=== PATIENT | male | born 1945 | race Caucasian/White ===

== ENCOUNTER → 2021-08-09 10:31 | Outpatient (BNVA) | payer OTHER, SELFPAY | PROVIDERS: PCP Family Medicine; Visit Provider Urology | DX: R35.1 Nocturia (principal); N40.1 Benign prostatic hyperplasia with lower urinary tract symptoms; G60.3 Idiopathic progressive neuropathy; E03.9 Hypothyroidism, unspecified; R73.03 Prediabetes | CPT/HCPCS: 51798; 99212 ==

== ENCOUNTER → 2022-03-26 09:59 | Outpatient (BNVA) | payer OTHER, SELFPAY | PROVIDERS: PCP Family Medicine; Visit Provider Urology | DX: N40.1 Benign prostatic hyperplasia with lower urinary tract symptoms (principal); R35.1 Nocturia | CPT/HCPCS: 52000; 99212 ==

== ENCOUNTER → 2022-12-11 13:16 | Outpatient (BNVA) | payer OTHER, SELFPAY | PROVIDERS: PCP Family Medicine; Visit Provider Urology | DX: N40.1 Benign prostatic hyperplasia with lower urinary tract symptoms (principal); R35.1 Nocturia | CPT/HCPCS: 51798; 99212 ==

== ENCOUNTER 2023-09-04 10:22 | Outpatient (AMB) | payer OTHER, SELFPAY ==
--- NOTE | 2023-09-04 10:35 | A.OFFVIS_ITS ---
Intake Intake Visit Reasons: 6m follow up/PVR Intake Note: Patient is Present for Follow Up PVR Urology Medication: Finasteride, Antibiotic Allergies: None Blood Thinners: None Pharmacy: [facility] PVR: 0 ML Allergies No Known Allergies [No Known Allergies*] Allergy (Verified 09/04/23 10:35) HPI HPI Comments History of Present Illness Details Ravi is a very pleasant male. He is a patient of Dr. Silva. He is seen for the following urologic conditions. - lower urinary tract symptoms Prior PVR had been high but reduced with combination medications Current PVR 0 Current medications include finasteride and prazosin. Prazosin also used to control PTSD Accompanied by Has had hesitancy with accidents Discussed GreenLight laser prostate This will be organized Lower Urinary Tract Symptoms:? Current visit is for?further symptom evaluation of, lower urinary tract symptoms, mixed obstructive and irritative symptoms.? Current treatment includes?medication, finasteride, alpha hayley prazosin 5mg.? Prostate Symptom Score?Moderate (9-19), Bother 3.? Symptoms include?incomplete emptying, weak stream, nocturia (>2), and are progressing.? Prior Prostate Score?unknown.? Cystoscopy 04/14 trilobar hypertrophy PFSH Medical History Idiopathic progressive neuropathy Hypothyroidism Lower back pain Restless legs syndrome Prediabetes Benign prostatic hyperplasia with lower urinary tract symptoms Nocturia Review of Systems Const Denies chills and Denies fever(s) Card Reports no additional complaints and Denies syncope Resp Denies cough GI Denies abdominal pain and Denies heartburn Reports as per HPI and Denies change in libido Neuro Denies syncope Psych Denies change in libido Endo Denies change in libido Physical Exam Const General: cooperative, healthy appearing, comfortable and no acute distress Orientation/consciousness: patient oriented x3 HEENT Face and sinus: Yes normal facial exam Mouth: moist mucous membranes Neck Neck: Yes normal visual inspection, Yes full ROM and Yes trachea midline Chest Chest palpation & inspection: normal inspection of the chest Resp Effort & Inspection: normal respiratory effort, able to speak in complete sentences and no respiratory distress GI Inspection: Yes normal to inspection Back/Spine/Pelvis Cervical Spine: normal cervical lordosis Thoracic/Lumbar Spine: thoracic and lumbar spine normal to inspection Skin General skin exam: no rashes or lesions noted Neuro General: patient oriented x3, gait normal, tone normal and moves all extremities Extrem General: Yes normal to inspection and Yes capillary refill normal Office Procedures Post Void Residual Post Residual Void Post Void Residual (PVR): 0 [id number] Void Residual by ultrasound Results AMB Urinalysis, Automated UA Leukoctes 0 Mona/uL Last Edit by Shelly Alonzo [facility] on 09/04/23 11:01 UA Nitrite Negative Last Edit by Shelly Alonzo A on 09/04/23 11:01 UA Urobilinogen 1 mg/dL Last Edit by Shelly Alonzo A on 09/04/23 11:01 UA Protein 0 mg/dL Last Edit by Shelly Alonzo A on 09/04/23 11:01 UA pH 6.0 Last Edit by Shelly Alonzo [facility] on 09/04/23 11:01 UA Blood 0 Harshad/uL Last Edit by Shelly Alonzo [facility] on 09/04/23 11:01 UA Specific [place] 1.020 Last Edit by Shelly Alonzo, A on 09/04/23 11: 01 UA Ketone Negative Last Edit by Shelly Alonzo [facility] on 09/04/23 11:01 UA Bilirubin 0 mg/dL Last Edit by Shelly Alonzo A on 09/04/23 11:01 UA Glucose 0 mg/dL Last Edit by Shelly Alonzo, [facility] on 09/04/23 11:01 Assessment & Plan Assessment & Plan (1) Nocturia: Code(s): R35.1 - Nocturia (2) Benign prostatic hyperplasia with lower urinary tract symptoms: Comment: 6 month follow-up PVR Code(s): N40.1 - Benign prostatic hyperplasia with lower urinary tract symptoms Plan We discussed the nature of the decision and reasonable options for performing a prostate intervention. Interventions include TURP, GreenLight laser enucleation of the prostate, GreenLight laser ablation of the prostate, transurethral incision of the prostate, and I-Tend prostate procedure. Options such as medical therapy were discussed. The relative uncertainties and benefits related to each alternate procedure were adequately discussed. General surgical risks including, but not limited to, pain, bleeding, infection, myocardial infarction, pulmonary embolus, deep vein thrombosis and cerebrovascular accident which may result in further hospitalization were discussed. Full disclosure of the procedure as well as all major risks, benefits and complications were discussed including but not limited to damage to the urethra or bladder neck, recurrent BPH, retrograde ejaculation, bladder infection, urge, de thuy frequency, incomplete emptying, dysuria, remote chance of erectile dysfunction, epididymitis, and meatal stenosis. The success rate of the procedure was discussed. Success of the procedure in the short-term does not necessarily guarantee that long-term success will be maintained. Suitable follow up will need to be maintained. The patient showed understanding of discussion. An opportunity was provided for questions to be answered and wishes to proceed with the following procedure. - green light laser prostate Orders: Orders AMB Urinalysis Automated Today Z13.9 - Encounter for screening, unspecified AMB Post Void Residual by ultrasound Today N40.1 - Benign prostatic hyperplasia with lower urinary tract symptoms Patient Instructions: Imaging studies, laboratory and physical exam results were discussed and reviewed in detail. No major barriers to patient understanding were identified. An opportunity to ask questions regarding the treatment plan was provided. All questions were answered. The patient expressed understanding and agreement with the above treatment plan. The patient is aware they should contact our office by phone for worsening of their current condition or the appearance of new urologic symptoms. Compliance is encouraged with any medications and followup testing that is ordered. It is a privilege to participate in the urologic care of your patient. If you have any questions or concerns regarding treatment for the above conditions, or other urologic issues, please do not hesitate to contact me. The office telephone contact is [phone]. This note is constructed using voice recognition software. While every effort has been made to ensure accuracy mop maker errors may have been included. Yours sincerely, Dr Colt Camarillo MD, [facility] - Urology Providers of Expert, Compassionate Care for the Genitourinary System Coding Level of Care Code Est Pt Level 4 (76756) Diagnoses Nocturia R35.1 Benign prostatic hyperplasia with lower urinary tract symptoms N40.1 CPT Codes Post Residual Void - PVR CPT Code: 13597-Bpcg Void Residual by ultrasound ([id number])
== END 2023-09-04 11:30 | disposition home or self-care (01) ==
PROVIDERS: PCP Family Medicine; Visit Provider Urology
DX: N40.1 Benign prostatic hyperplasia with lower urinary tract symptoms (principal); R35.1 Nocturia; Z13.9 Encounter for screening, unspecified
CPT/HCPCS: 99214

== ENCOUNTER → 2023-09-04 10:22 | Outpatient (BNVA) | payer OTHER, SELFPAY | PROVIDERS: Visit Provider Urology | DX: N40.1 Benign prostatic hyperplasia with lower urinary tract symptoms (principal); R35.1 Nocturia | CPT/HCPCS: 51798; 81003; 99212 ==

== ENCOUNTER 2023-10-20 08:25 | Day surgery (SDC) | payer OTHER, SELFPAY ==
[2023-10-14 11:02] VITALS: BMI 32.4
--- NOTE | 2023-10-15 12:07 | HO.ANESPROP2 ---
Documented by User: Stacey Yoder NP 10/15/23 12:08 HPI - Anesthesia Eval Consult details Narrative: 77yo M for Laser Ablation Prostate w/Green Light PMFSH Active Problems Active Problems: All Active Problems (Updated 10/14/23 @ 11:01 by Angela Elizondo RN) Nocturia (Acute) Benign prostatic hyperplasia with lower urinary tract symptoms (Acute) Past Medical History Medical History (Updated 10/20/23 @ 09:13 by Jennifer Lutz RN) GERD (gastroesophageal reflux disease) PTSD (post-traumatic stress disorder) Anxiety Depression Sleep apnea Elevated cholesterol Idiopathic progressive neuropathy Hypothyroidism Lower back pain Restless legs syndrome Prediabetes Benign prostatic hyperplasia with lower urinary tract symptoms Nocturia Surgical History Surgical History (Updated 10/20/23 @ 08:48 by Jennifer Lutz RN) History of esophagogastroduodenoscopy (EGD) H/O colonoscopy Social History Patient Tobacco Use Status: Former Tobacco user Quit Date: 2 yrs ago Use of substances other than those prescribed or required for medical reasons: No Are you DNR?: No Advance Directives: No Advance Directives Information Provided: Yes Meds Allergies Allergy/AdvReac Type Severity Reaction Status Date / Time No Known Allergies Allergy Verified 10/20/23 09:12 [No Known Allergies*] Home Medications Medication Instructions Recorded Confirmed Last Taken Type finasteride 5 mg tablet 5 mg PO BEDTIME 08/09/21 10/20/23 Unknown History gabapentin 100 mg capsule 100 mg PO BEDTIME 08/09/21 10/20/23 Unknown History prazosin 5 mg capsule 5 mg PO BEDTIME 08/09/21 10/20/23 Unknown History lorazepam 0.5 mg tablet 0.5 mg PO DAILY PRN Anxiety 03/26/22 10/20/23 Unknown History atorvastatin 80 mg tablet 80 mg PO BEDTIME 12/11/22 10/20/23 Unknown History zolpidem 5 mg tablet 5 mg PO BEDTIME PRN Insomnia 12/11/22 10/20/23 Unknown History Hyaluronic Acid (sodium) 200 g PO DAILY 10/20/23 10/20/23 Unknown History duloxetine 30 mg capsule,delayed 40 mg PO DAILY 10/20/23 10/20/23 Unknown History release (Cymbalta) levothyroxine 125 mcg tablet 125 mcg PO DAILY 10/20/23 10/20/23 Unknown History omeprazole 20 mg capsule,delayed 20 mg PO DAILY 10/20/23 10/20/23 Unknown History release paroxetine HCl 10 mg tablet (Paxil) 10 mg PO DAILY 10/20/23 10/20/23 Unknown History Exam Height,Weight and Vital Signs: Height 5 ft 7 in Weight 93.894 kg Assessment and Plan Assessment Anesthesia Assessment: Chart Reviewed Documented by User: Eloy Pineda MD 10/20/23 09:16 [facility] Past Medical History Medical History (Updated 10/20/23 @ 09:13 by Jennifer Lutz RN) GERD (gastroesophageal reflux disease) PTSD (post-traumatic stress disorder) Anxiety Depression Sleep apnea Elevated cholesterol Idiopathic progressive neuropathy Hypothyroidism Lower back pain Restless legs syndrome Prediabetes Benign prostatic hyperplasia with lower urinary tract symptoms Nocturia Family History Family history of problems with anesthesia: No Surgical History Surgical History (Updated 10/20/23 @ 08:48 by Jennifer Lutz RN) History of esophagogastroduodenoscopy (EGD) H/O colonoscopy History of Problems with Anesthesia: No Social History Patient Tobacco Use Status: Former Tobacco user Quit Date: 2 yrs ago Use of substances other than those prescribed or required for medical reasons: No Are you DNR?: No Advance Directives: No Advance Directives Information Provided: Yes Meds Allergies Allergy/AdvReac Type Severity Reaction Status Date / Time No Known Allergies Allergy Verified 10/20/23 09:12 [No Known Allergies*] Home Medications Medication Instructions Recorded Confirmed Last Taken Type finasteride 5 mg tablet 5 mg PO BEDTIME 08/09/21 10/20/23 Unknown History gabapentin 100 mg capsule 100 mg PO BEDTIME 08/09/21 10/20/23 Unknown History prazosin 5 mg capsule 5 mg PO BEDTIME 08/09/21 10/20/23 Unknown History lorazepam 0.5 mg tablet 0.5 mg PO DAILY PRN Anxiety 03/26/22 10/20/23 Unknown History atorvastatin 80 mg tablet 80 mg PO BEDTIME 12/11/22 10/20/23 Unknown History zolpidem 5 mg tablet 5 mg PO BEDTIME PRN Insomnia 12/11/22 10/20/23 Unknown History Hyaluronic Acid (sodium) 200 g PO DAILY 10/20/23 10/20/23 Unknown History duloxetine 30 mg capsule,delayed 40 mg PO DAILY 10/20/23 10/20/23 Unknown History release (Cymbalta) levothyroxine 125 mcg tablet 125 mcg PO DAILY 10/20/23 10/20/23 Unknown History omeprazole 20 mg capsule,delayed 20 mg PO DAILY 10/20/23 10/20/23 Unknown History release paroxetine HCl 10 mg tablet (Paxil) 10 mg PO DAILY 10/20/23 10/20/23 Unknown History Exam Airway Mallampati Class: I TM Dist: >3cm Denture: Upper and Lower Heart: ok Lungs: ok Assessment and Plan Assessment Anesthesia Assessment: Anesthesia Plan Discussed Final Anesthetic Review Family History of Problems with Anesthesia: No History of Problems with Anesthesia: No NPO: Yes ASA Class: III Final Preanesthetic Review: No Changes in Pt Med Stat, Meds/Allgs Chart Reviewed, Consent Obtained/Reviewed and Anes Risks/Benef Reviewed Patient Risk: Intermediate Procedure Risk: Low Anesthetic Plan Anesthetic Plan: GA and Agree w/ Assess. and Plan Disposition: Standard PACU
[2023-10-20 08:47] VITALS: BMI 31.9
[2023-10-20 08:50] VITALS: BMI 31.9
--- NOTE | 2023-10-20 08:52 | MHC.SHP ---
Pre-Procedural Eval Section A Date of Service: 10/20/23 The patient is an INPATIENT: No Changes since office visit: No Cold of Flu in the past 2 weeks, No New Medical Problems, No Changes in Medication and No Patient answered all questions The History & Physical has been completed within 30 days and I have reviewed it.: No Section B Chief Complaint: Benign prostatic hyperplasia with lower urinary tr Details of Present Illness: progressive Relevant Social History: None Present Medications: see Short Stay Collaborative assessment Medical History: No relevant PMH History of Previous Operations: No relevant previous surgery Allergies: Allergies Allergy/AdvReac Type Severity Reaction Status Date / Time No Known Allergies Allergy Verified 09/04/23 10:35 [No Known Allergies*] Review of Systems Sugical H&P ROS: Negative: Constitution, Cardiovascular, Respiratory, Neurological, Psychiatric, Hem-Onc, Allergic/Immunologic, Gastrointestinal, Genitourinary, Musculoskeletal, Integumentary, Endocrine and Eyes/Ears/Nose/Throat Exam Surgical H&P Exam: Normal: HEENT, Normal: Heart, Normal: Lungs, Normal: Extremities, Normal: Abdomen, Normal: Skin and Normal: Neurological Plan Diagnosis/Plan: Unchanged (Greenlight laser prostatetcomy) I have reviewed the history and physical and performed a pertinent physical examination on my patient. No changes have occurred unless specified. Time Spent With Patient Time: Total time managing care of this patient today ____ minutes.
[2023-10-20] MEDS: Lactated Ringers 1,000 ML 100 ML IVCONT (09:10)
[2023-10-20 09:11] VITALS: BP 117/85; PULSE 86; RESP 16; TEMP 36.3; O2SAT 96
--- NOTE | 2023-10-20 09:47 | PC.NURSE ---
Fine crackles noted in RLL, anesthesia made aware at time of report 0910.
--- NOTE | 2023-10-20 10:19 | W.PM.OPN ---
Operative Note Operative Note Date of Service: 10/20/23 Narrative: PreOperative Diagnosis: Bladder outlet obstruction Post Operative Diagnosis: Bladder outlet obstruction Procedure: GreenLight Laser Enucleation of the prostate Surgeon: Dr Colt Camarillo Anesthesia: General Indications for procedure: progressive BPH symptoms History of bladder outlet obstruction. Treated with alpha-hayley and other medications. Still with symptoms. On cystoscopy in office has trilobar prostate. Recommendation for prostate procedure with laser enucleation of prostate. Risks and benefits have been discussed. Focus was placed on development of retrograde ejaculation which is a normal part of this procedure. Procedure: After informed consent was verified the patient was brought to the operating room and placed in a supine position. Anesthesia was administered per protocol. Patient was placed in modified dorsal lithotomy position and prepped and draped in a sterile fashion. Safety pause time-out was confirmed. Antibiotics have been given. A Twenty-four Salvadorean laser cystoscope was inserted per urethra. No abnormalities were found of the anterior and bulbar urethra. The bladder was examined and both ureteric orifices were seen in their normal positions away from the area of interest. Bladder had Grade 2 trabeculations Using a GreenLight laser with settings of 80 w incisions were made at the 5 and 7 o'clock position. The incisions were taken down from the bladder neck down to the level of the veru. These were gradually deepened in order to define the lateral aspects of the median lobe area. Once clearly defined they will also extended in the lateral directions in order to create a deep groove. The median lobe was then ablated and enucleated tissue released into the bladder with the laser power increased to 120 W. Once the median lobe area had been cleared attention was directed to the lateral lobes. Starting with the patient's left lateral lobe. First the 05:00 o'clock groove was further developed. This was moved in the lateral direction to undermine the tissue on the lateral side running from the bladder neck to the prostate apex. Focus was then placed on the laser at the 1 o'clock position to developing a secondary groove down to the level of bladder fibers. The creation of a second deep groove defined a segment of intervening tissue similar to a slice of orange. At the apex of the prostate the 2 grooves were linked the us releasing the intervening tissue. This tissue was then removed with a combination of enucleation and ablation working from the apex toward the bladder neck. A similar procedure was repeated on the patient's right-hand side. The only differences being the position of the lateral groove at he 7 'oclock positioin and the secondary groove at the 11 o'clock position, Otherwise the procedure was developed in a mirror fashion. After the majority of tissue had been debulked remnant tissue was ablated with the side fire laser and the curve of the prostate followed up each side wall clearly defining the anterior remnant strip that remained between the 11 and 1 o'clock positions. When this was had been completed debris and pieces of prostate were removed from the bladder with irrigation. Both ureteric orifices were reviewed again in shown to be patent in away from any areas of energy damage. The apical area was reviewed in any stray ooze was controlled. A 22 Salvadorean 30 cc balloon Chirinos catheter was placed over a stylet into the bladder. Clear efflux was obtained upopn irrigation with a Tarik piston syringe. 30 cc was placed in the balloon and gentle traction was placed. A snap was used to hold tension on the catheter to control bleeding during patient moved and transported. A drainage bag was placed. Once transportation is complete to the PACU the snap will be removed. The patient tolerated the procedure well, he was extubated in the operating and transferred in a stable condition to the recovery area. Total Power 100 kW Lasing time 15.03 Pathology: Prostate tissue Drains: Chirinos catheter
[2023-10-20 10:23] VITALS: BP 108/71; PULSE 74; RESP 14; TEMP 36.1; O2SAT 91
[2023-10-20 10:28] VITALS: BP 116/74; PULSE 69; RESP 14; O2SAT 96
[2023-10-20 10:33] VITALS: BP 115/68; PULSE 68; RESP 14; O2SAT 95
[2023-10-20 10:38] VITALS: BP 101/72; PULSE 66; RESP 16; O2SAT 96
[2023-10-20 10:53] VITALS: BP 119/65; PULSE 64; RESP 18; TEMP 36.1; O2SAT 95
--- NOTE | 2023-10-20 11:10 | PC.NURSE ---
thorough education provided on aguilar care, leg bag transitioning, and care with at bedside
== END 2023-10-20 11:40 | disposition home or self-care (01) ==
PROVIDERS: PCP Family Medicine; Visit Provider Urology
PROC: (CPT 52648; principal; 2023-10-20 11:20)
DX: N40.1 Benign prostatic hyperplasia with lower urinary tract symptoms (principal); N13.8 Other obstructive and reflux uropathy; N32.89 Other specified disorders of bladder; R33.9 Retention of urine, unspecified; R39.12 Poor urinary stream; R35.1 Nocturia; R73.03 Prediabetes; E03.9 Hypothyroidism, unspecified; Z79.899 Other long term (current) drug therapy
CPT/HCPCS: 52649; 88305; J1956; J2704; J3010

== ENCOUNTER → 2023-10-20 08:25 | Outpatient (BNV) | payer OTHER, SELFPAY | PROVIDERS: PCP Family Medicine; Visit Provider Urology | DX: N40.1 Benign prostatic hyperplasia with lower urinary tract symptoms (principal) | CPT/HCPCS: 52649 ==

== ENCOUNTER → 2023-10-23 09:51 | Outpatient (BNVA) | payer OTHER, SELFPAY | PROVIDERS: PCP Family Medicine; Visit Provider Urology | DX: N40.1 Benign prostatic hyperplasia with lower urinary tract symptoms (principal) | CPT/HCPCS: 51700; 51798 ==

== ENCOUNTER 2023-12-09 11:16 | Outpatient (AMB) | payer OTHER, SELFPAY ==
--- NOTE | 2023-12-09 11:19 | A.OFFVIS_ITS ---
Intake Intake Visit Reasons: Post-OP PVR(Greenlight 10/20) Intake Note: Patient is Present for Follow Up PVR Urology Medication: Finasteride Antibiotic Allergies: None Blood Thinners: None PVR: 21 Allergies No Known Allergies [No Known Allergies*] Allergy (Verified 12/09/23 11:22) HPI HPI Comments History of Present Illness Details Ravi is a very pleasant male. He is a patient of Dr. Silva. He is seen for the following urologic conditions. - lower urinary tract symptoms Good response to Procedure PVR low May come off finasteride Nocturia reduced from 3-4 times a night to once or twice Very happy with effective stream Prazosin also used to control PTSD Accompanied by Lower Urinary Tract Symptoms:? Current visit is for?further symptom evaluation of, lower urinary tract symptoms, mixed obstructive and irritative symptoms.? Current treatment includes?medication, finasteride, alpha hayley prazosin 5mg.? Prostate Symptom Score?Moderate (9-19), Bother 3.? Symptoms include?incomplete emptying, weak stream, nocturia (>2), and are progressing.? Prior Prostate Score?unknown.? Cystoscopy 04/14 trilobar hypertrophy PFSH Medical History GERD (gastroesophageal reflux disease) PTSD (post-traumatic stress disorder) Anxiety Depression Sleep apnea Elevated cholesterol Idiopathic progressive neuropathy Hypothyroidism Lower back pain Restless legs syndrome Prediabetes Benign prostatic hyperplasia with lower urinary tract symptoms Nocturia Surgical History History of esophagogastroduodenoscopy (EGD) H/O colonoscopy Social History Patient Tobacco Use Status: Former Tobacco user Quit Date: 2 yrs ago Review of Systems Const Denies chills and Denies fever(s) Card Reports no additional complaints and Denies syncope Resp Denies cough GI Denies abdominal pain and Denies heartburn Reports as per HPI and Denies change in libido Neuro Denies syncope Psych Denies change in libido Endo Denies change in libido Physical Exam Const General: cooperative, healthy appearing, comfortable and no acute distress Orientation/consciousness: patient oriented x3 HEENT Face and sinus: Yes normal facial exam Mouth: moist mucous membranes Neck Neck: Yes normal visual inspection, Yes full ROM and Yes trachea midline Chest Chest palpation & inspection: normal inspection of the chest Resp Effort & Inspection: normal respiratory effort, able to speak in complete sentences and no respiratory distress GI Inspection: Yes normal to inspection Back/Spine/Pelvis Cervical Spine: normal cervical lordosis Thoracic/Lumbar Spine: thoracic and lumbar spine normal to inspection Skin General skin exam: no rashes or lesions noted Neuro General: patient oriented x3, gait normal, tone normal and moves all extremities Extrem General: Yes normal to inspection and Yes capillary refill normal Office Procedures Post Void Residual Post Residual Void Post Void Residual (PVR): 21 [id number] Void Residual by ultrasound Assessment & Plan Assessment & Plan (1) Benign prostatic hyperplasia with lower urinary tract symptoms: Comment: 6 month follow-up PVR Code(s): N40.1 - Benign prostatic hyperplasia with lower urinary tract symptoms Plan Six-month follow-up PSA Orders: Orders Prostate Specific Antigen 6 Months N40.1 - Benign prostatic hyperplasia with lower urinary tract symptoms AMB Post Void Residual by ultrasound Today N40.1 - Benign prostatic hyperplasia with lower urinary tract symptoms Patient Instructions: Imaging studies, laboratory and physical exam results were discussed and reviewed in detail. No major barriers to patient understanding were identified. An opportunity to ask questions regarding the treatment plan was provided. All questions were answered. The patient expressed understanding and agreement with the above treatment plan. The patient is aware they should contact our office by phone for worsening of their current condition or the appearance of new urologic symptoms. Compliance is encouraged with any medications and followup testing that is ordered. It is a privilege to participate in the urologic care of your patient. If you have any questions or concerns regarding treatment for the above conditions, or other urologic issues, please do not hesitate to contact me. The office telephone contact is [phone]. This note is constructed using voice recognition software. While every effort has been made to ensure accuracy artist representative errors may have been included. Yours sincerely, Dr Colt Camarillo MD, [facility] - Urology Providers of Expert, Compassionate Care for the Genitourinary System Coding Level of Care Code Est Pt Level 3 (98031) Diagnoses Benign prostatic hyperplasia with lower urinary tract symptoms N40.1 CPT Codes Post Residual Void - PVR CPT Code: 63972-Allg Void Residual by ultrasound ([id number])
== END 2023-12-09 11:48 | disposition home or self-care (01) ==
PROVIDERS: PCP Family Medicine; Referring Provider Family Medicine; Visit Provider Urology
DX: N40.1 Benign prostatic hyperplasia with lower urinary tract symptoms (principal)
CPT/HCPCS: 99024

== ENCOUNTER → 2023-12-09 11:16 | Outpatient (BNVA) | payer OTHER, SELFPAY | PROVIDERS: PCP Family Medicine; Visit Provider Urology | DX: N40.1 Benign prostatic hyperplasia with lower urinary tract symptoms (principal); R39.14 Feeling of incomplete bladder emptying; R39.12 Poor urinary stream; R35.1 Nocturia | CPT/HCPCS: 51798; 99212 ==

== ENCOUNTER 2024-07-08 12:36 | Outpatient (REF) | payer OTHER, SELFPAY ==
[2024-07-08 14:02] LABS: Prostate Specific Antigen 0.98 ng/mL (<0.05-4.0)
== END 2024-07-08 12:37 | disposition home or self-care (01) ==
LOC: HO.10HDL 12:36
PROVIDERS: Visit Provider Urology
DX: Z12.5 Encounter for screening for malignant neoplasm of prostate (principal); N40.1 Benign prostatic hyperplasia with lower urinary tract symptoms
CPT/HCPCS: 36415; 84153

== ENCOUNTER 2024-07-20 14:47 | Outpatient (AMB) | payer OTHER, SELFPAY ==
--- NOTE | 2024-07-20 15:18 | MHC.OFFVIS ---
Intake Visit Reasons: 6M Follow Up-PSA(set) Intake Note: Patient is present for PSA Follow up Patient wants to know if he needs to restart Finasteride Allergies No Known Allergies [No Known Allergies*] Allergy (Verified 12/09/23 11:22) HPI Comments Details: Ravi is a very pleasant male. He is a patient of Dr. Silva. He is seen for the following urologic conditions. - lower urinary tract symptoms Six-month follow-up GreenLight laser procedure PSA - 07/17 1.0 Nocturia reduced from 3-4 times a night to once or twice Very happy with effective stream Prazosin also used to control PTSD Accompanied by Lower Urinary Tract Symptoms:? Current visit is for?further symptom evaluation of, lower urinary tract symptoms, mixed obstructive and irritative symptoms.? Current treatment includes?medication, finasteride, alpha hayley prazosin 5mg.? Prostate Symptom Score?Moderate (9-19), Bother 3.? Symptoms include?incomplete emptying, weak stream, nocturia (>2), and are progressing.? Prior Prostate Score?unknown.? Cystoscopy 04/14 trilobar hypertrophy - 01/17 GreenLight laser prostatectomy PFS Medical History GERD (gastroesophageal reflux disease) PTSD (post-traumatic stress disorder) Anxiety Depression Sleep apnea Elevated cholesterol Idiopathic progressive neuropathy Hypothyroidism Lower back pain Restless legs syndrome Prediabetes Benign prostatic hyperplasia with lower urinary tract symptoms Nocturia Surgical History History of esophagogastroduodenoscopy (EGD) H/O colonoscopy Social History Patient Tobacco Use Status: Former Tobacco user Review of Systems Const Denies chills and Denies fever(s) Card Reports no additional complaints and Denies syncope Resp Denies cough GI Denies abdominal pain and Denies heartburn Reports as per HPI and Denies change in libido Neuro Denies syncope Psych Denies change in libido Endo Denies change in libido Physical Exam Const General: cooperative, healthy appearing, comfortable and no acute distress Orientation/consciousness: patient oriented x3 HEENT Face and sinus: Yes normal facial exam Mouth: moist mucous membranes Neck Neck: Yes normal visual inspection, Yes full ROM and Yes trachea midline Chest Chest palpation & inspection: normal inspection of the chest Resp Effort & Inspection: normal respiratory effort, able to speak in complete sentences and no respiratory distress GI Inspection: Yes normal to inspection Back/Spine/Pelvis Cervical Spine: normal cervical lordosis Thoracic/Lumbar Spine: thoracic and lumbar spine normal to inspection Skin General skin exam: no rashes or lesions noted Neuro General: patient oriented x3, gait normal, tone normal and moves all extremities Extrem General: Yes normal to inspection and Yes capillary refill normal Assessment & Plan Assessment & Plan (1) Nocturia: Code(s): R35.1 - Nocturia Category: Medical (2) Benign prostatic hyperplasia with lower urinary tract symptoms: Comment: 6 month follow-up PVR Code(s): N40.1 - Benign prostatic hyperplasia with lower urinary tract symptoms Category: Medical Plan Twelve month follow-up PVR Patient Instructions: Imaging studies, laboratory and physical exam results were discussed and reviewed in detail. No major barriers to patient understanding were identified. An opportunity to ask questions regarding the treatment plan was provided. All questions were answered. The patient expressed understanding and agreement with the above treatment plan. The patient is aware they should contact our office by phone for worsening of their current condition or the appearance of new urologic symptoms. Compliance is encouraged with any medications and followup testing that is ordered. It is a privilege to participate in the urologic care of your patient. If you have any questions or concerns regarding treatment for the above conditions, or other urologic issues, please do not hesitate to contact me. The office telephone contact is [phone]. This note is constructed using voice recognition software. While every effort has been made to ensure accuracy buffing and sueding machine operator errors may have been included. Yours sincerely, Dr Colt Camarillo MD, [facility] - Urology Providers of Expert, Compassionate Care for the Genitourinary System Coding Level of Care Code Est Pt Level 3 (67841) Diagnoses Nocturia R35.1 Benign prostatic hyperplasia with lower urinary tract symptoms N40.1
== END 2024-07-20 16:01 | disposition home or self-care (01) ==
PROVIDERS: PCP Family Medicine; Visit Provider Urology
DX: N40.1 Benign prostatic hyperplasia with lower urinary tract symptoms (principal); R35.1 Nocturia
CPT/HCPCS: 99213

== ENCOUNTER → 2024-07-20 14:47 | Outpatient (BNVA) | payer OTHER, SELFPAY | PROVIDERS: PCP Family Medicine; Visit Provider Urology | DX: N40.1 Benign prostatic hyperplasia with lower urinary tract symptoms (principal); R35.1 Nocturia | CPT/HCPCS: 99212 ==

== ENCOUNTER 2025-07-20 11:28 | Outpatient (AMB) | payer OTHER, SELFPAY ==
--- OUTSIDE RECORDS SUMMARY | 2024-09-14 07:30 | XMS_ITS | Encounter Summary ---
Author Name [facility] [place] Organization [facility] [place] Address [address] [place] [address] Care Team Providers Care Puzzle Assembler Name Role Phone FRANCO CAMPBELL Primary Care Provider Unavail able Insurance Providers: All historical and current Section Date Range: From patient's date of to the date document was created. This section includes the names of all active insurance providers for the patient. Insurance Provider Type of Coverage Plan Name Start of Policy Coverage End of Policy Coverage Group Number Member ID Insurance Provider's Telephone Number Policy Rivera's Name Patient's Relationship to Policy Rivera MEDICARE (WNR) MEDICARE (M) PART A Nov 24, 2010 PART A [id number] [phone] ROHINI CARBAJAL CHARD PATIENT MEDICARE (WNR) MEDICARE (M) PART A Nov 24, 2010 PART A [id number] SOLOMON,ROHINI CHARD PATIENT MEDICARE (WNR) MEDICARE (M) PART A Nov 24, 2008 PART A [id number] SOLOMON,ROHINI CHARD PATIENT MEDICARE (WNR) MEDICARE (M) PART A Nov 24, 2008 PART A [id number] [phone] SOLOMON,ROHINI TODD PATIENT Selected Encounter This section includes the information on record at [place] for the Encounter. Date/Time Encounter Type Encounter Description Reason Provider Source Sep 14, 2024 11:30 AM OFFICE O/P EST LOW 20 MIN [facility] ICD-10-CM F43.12 Post-traumatic stress disorder, chronic KYLE BREWER [facility] Encounter Template Text not used by [place] Assessments - Encounter Diagnoses This section includes the primary and secondary diagnoses documented for the Encounter. Date/Time Primary/Secondary Diagnosis Diagnosis Name Provider Source Sep 14, 2024 12:20 PM PRIMARY Post-traumatic stress disorder, chronic BREWERKYLE Bassam [facility] Plan of Treatment: Future Appointments (+ 6 months) and Future Tests (+/- 45 days) The Plan of Treatment section includes future care activities for the patient [facility] This section includes future appointments and future orders which are active, pending or scheduled. Future Appointments This section includes appointments that were scheduled to occur 6 months from the date of the Encounter, up to a maximum of 20 appointments. The data comes from all [place] treatment facilities. Appointment Date/Time Appointment Type Appointme nt Facility Name Sep 23, 2024 11:00 AM AMBULATORY - [facility]IATRY [facility] [place] [facility] Oct 26, 2024 10:00 AM AMBULATORY - [facility]IAT[facility] [place] [facility] Oct 28, 2024 09:00 AM AMBULATORY - MEDICINE [facility] [place] [facility] Nov 05, 2024 11:30 AM AMBULATORY - MEDICINE [facility] Nov 11, 2024 02:00 PM AMBULATORY - NONE [facility] [place] [facility] Nov 15, 2024 08:00 AM AMBULATORY - REHAB MEDICIN [facility] [place] [facility] Dec 02, 2024 09:00 AM AMBULATORY - PS[facility]CHIATRY [facility] [place] [facility] Dec 02, 2024 10:30 AM [facility]ATORY - MEDICINE [facility] Dec 15, 2024 10:30 AM AMBULATORY - MEDICINE [facility] [place] [facility] Dec 24, 2024 03:00 PM AMBULATORY - MEDICINE [facility] Jan 04, 2025 11:00 AM AMBULATORY - PS[facility]CHIATRY [facility] [place] [facility] Jan 11, 2025 11:30 AM AMBULATORY - PSYCHIATRY [facility] Feb 15, 2025 10:00 AM AM[facility] [place] [facility] Mar 15, 2025 11:30 AM AMBULATORY - MEDICINE [facility] Social History: Smoking Status (Most current) and Tobacco Use (All prior to encounter date) This section includes the most current, and the historical, smoking and tobacco- related health factors from the [place] facility where the Encounter took place. Current Smoking Status This section includes the most current smoking, or tobacco-related health factor, from the [place] facility where the Encounter took place. Date/Time Current Smoking Status Comment Facil ity Jul 29, 2024 11:00 AM VA-TOBACCO FORMER USER [facility] Tobacco Use History This section includes a history of the smoking, or tobacco-related health factors, that were collected on or before the date of the Encounter. The data comes from the [place] facility where the Encounter took place. Date/Time Smoking Status/Tobacco Use Comment F [email or web address] Jul 29, 2024 11:00 AM VA-TOBACCO QUIT 5 TO < 15 YRS [facility] Jun 10, 2023 03:30 PM VA-TOBACCO FORMER USER [facility] Jun 10, 2023 03:30 PM VA-TOBACCO QUIT 1 TO < 5 YRS [facility] Jul 09, 2022 03:30 PM VA-TOBACCO FORMER USER [facility] Jul 09, 2022 03:30 PM VA-TOBACCO QUIT 15 YRS OR MORE [facility] Jun 08, 2021 09:00 AM VA-TOBACCO FORMER USER [facility] Jun 08, 2021 09:00 AM VA-TOBACCO QUIT < 1 YEAR [facility] Jun 20, 2020 09:38 AM VA-TOBACCO FORMER USER [facility] Jun 20, 2020 09:38 AM VA-TOBACCO QUIT 5 TO < 15 YRS [facility] Feb 10, 2019 06:20 PM VA-TOBACCO DOESNT USE WI 30 MIN WAKEUP [facility] Feb 10, 2019 06:20 PM VA-TOBACCO USE 30 YEARS OR MORE [facility] Feb 10, 2019 06:20 PM VA-TOBACCO USE ADVICE [facility] Feb 10, 2019 06:20 PM VA-TOBACCO USE VOLUNTEER SPECIALIST NO [facility] Feb 10, 2019 06:20 PM VA-TOBACCO USE MED NO [facility] Feb 10, 2019 06:20 PM VA-TOBACCO USER SOME DAYS [facility] Mar 05, 2018 08:47 AM QUIT TOBACCO USE 1 -7 YEARS AGO [facility] Oct 07, 2017 02:29 PM QUIT TOBACCO USE IN PAST YEAR [facility] March 27, 2017 02:09 PM QUIT TOBACCO USE IN PAST Y EAR cigars [facility] Dec 04, 2016 02:35 PM [facility] Mar 19, 2016 10:33 AM V1-PT NOT INTEREST ED IN QUIT TOBACCO USE [facility] Feb 07, 2016 09:06 AM CURRENT SMOKER States he smokes cigars every couple of days [facility] Dec 06, 2014 09:39 AM CURRENT [facility] Oct 29, 2013 08:14 AM V1-PT DECLINES REF TO TOBACCO CESS [facility] Oct 29, 2013 08:14 AM V1-PT READY TO ROSANGELA T TOBACCO USE [facility] May 20, 2013 09:56 AM QUIT TOBACCO USE IN PAST YEAR [facility] Nov 12, 2012 08:56 AM V1-PT DECLINES REF TO TOBACCO CESS [facility] Nov 12, 2012 08:56 AM V1-PT DECLINES TOB ACCO CESSATION [facility] Nov 12, 2012 08:56 AM V1-PT THINKING ABO UT QUIT TOBACCO USE [facility] Aug 12, 2012 08:38 AM CURRENT SMOKER 4-5cigars/d [facility] Aug 05, 2011 11:00 AM CURRENT SMOKER Pt. smikes 1 cigar a day! [facility] Aug 05, 2011 11:00 AM V1-PT DECLINES REF TO TOBACCO CESS [facility] Aug 05, 2011 11:00 AM V1-PT DECLINES TOB ACCO CESSATION [facility] Aug 05, 2011 11:00 AM V1-PT THINKING ABO UT QUIT TOBACCO USE [facility] Sep 27, 2010 08:35 AM V1-PT DECLINES REF TO TOBACCO CESS [facility] Sep 27, 2010 08:35 AM V1-PT READY TO ROSANGELA T TOBACCO USE [facility] April 03, 2010 02:39 PM QUIT TOBACCO USE IN PAST YEAR [facility] Encounter Notes: All associated encounter notes This section contains the clinical notes associated to the Encounter. Date/Time Encounter Note(s) Provider Source Sep 14, 2024 12:06 PM CLINICAL NURSE SPE CIALIST NOTE: LOCAL TITLE: CLINICAL NURSE SPECIALIST/MENTAL HEALTH STANDARD TITLE: CLINICAL NURSE SPECIALIST NOTE DATE OF NOTE: SEP 14, 2024@12:06 ENTRY DATE: SEP 14, 2024@12:06:59 AUTHOR: KYLE BREWER EXP COSIGNER: URGENCY: STATUS: COMPLETED Pertinent symptoms: PTSD, chronic symptoms. - In person 30 min- - medication management. Followed by Ana Lilia Oswald [facility] for counseling Taking Duloxetine for mood and neuropathic pain last visit, taking 40 mg. He states that he thinks that Paxil is more effective for mood and is taking 10 mg daily . We discussed Serotonin syndrome. No side effects reviewed and he states that he wishes to continue with current medications. Active problems - Computerized Problem List is the source for the followin. Neuropathy 2. Osteoarthritis * 3. Impaired Fasting Glucose 4. Esophageal Reflux 5. Problems resulting from Gambling and Betting 6. Skin Lesion 7. Depressive Disorder NOS 8. Colorectal Cancer Screening Results Documented and Reviewed (PV) 9. Vitamin B 12 Deficiency 10. Low Back Pain, Lumbago 11. Hyperlipidemia 12. Hypothyroidism 13. Posttraumatic Stress Disorder * The following VA and Non-VA medications were reconciled with the patient: Relevant mental status exam or other objective findings: Well groomed .friendly affect is full Thought process- goal directed - Speech : normal rate and tone No a/v hallucination/ delusions. 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 Remains active as much as he can. He is driving. He states he still has periods of depression- but improved [facility]. 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 Renew Ambien 5 mg at he for sleep prn. Lorazepam .5 mg bid x 30 days for anxiety takes usually one tab daily Labs/Radiology/Tests/Consultation _ none ordered __ obtained: labs reviewed The following VA and Non-VA medications were reconciled with the patient: Active Outpatient Medications (including Supplies): ATORVASTATIN CALCIUM 80MG TAB TAKE ONE TABLET BY MOUTH AT ACTIVE BEDTIME FOR CHOLESTEROL DEPEND UNDERWEAR,MAXIMUM,MEN LARGE USE 1 BRIEF DIRECTED ACTIVE FIVE TIMES A DAY DULOXETINE HCL 20MG EC CAP TAKE TWO CAPSULES BY MOUTH BRANDON PENDING FINASTERIDE 5MG TAB TAKE ONE TABLET BY MOUTH ONCE DAILY ACTIVE FOR PROSTATE GABAPENTIN 100MG CAP TAKE ONE CAPSULE BY MOUTH THREE TIMES ACTIVE A DAY IPRATROPIUM BR 0.03% NASAL SPRAY INSTILL 2 SPRAYS INTO ACTIVE EACH NOSTRIL DIRECTED BY PROVIDER FOR NASAL IRRITATION/CONGESTION TWO OR THREE TIMES A DAY LEVOTHYROXINE NA (SYNTHROID) 125MCG TAB TAKE ONE TABLET BY ACTIVE MOUTH EVERY MORNING 30 MINUTES BEFORE BREAKFAST FOR THYROID - TAKE ON AN EMPTY STOMACH WITH A FULL GLASS OF WATER LIDOCAINE 5% PATCH APPLY 1 PATCH TOPICALLY EVERY 24 HOURS ACTIVE FOR LOW BACK PAIN (LEAVE PATCH ON FOR 12 HOURS, THEN REMOVE PATCH) LORAZEPAM 0.5MG TAB TAKE ONE TABLET BY MOUTH TWICE DAILY ACTIVE FOR ANXIETY PAROXETINE HCL 20MG TAB TAKE ONE-HALF TABLET BY MOUTH AT PENDING BEDTIME FOR MOOD PRAZOSIN HCL 5MG CAP TAKE ONE CAPSULE BY MOUTH AT BEDTIME ACTIVE PRAZOSIN HCL 5MG CAP TAKE ONE CAPSULE BY MOUTH AT BEDTIME PENDING ZOLPIDEM TARTRATE 5MG TAB TAKE ONE TABLET BY MOUTH AT PENDING BEDTIME NEEDED Rt in 8 weeks I educated the patient about the side effect profile of the benzodiazepine, including potential for sedation, for impaired coordination, for falling, and for impaired cognition. The patient was advised not to drive after taking the benzodiazepine. The patient was advised about the potential for excessive sedation when the benzodiazepine is taken with other medications. The patient was advised not to take the benzodiazepine with alcohol. The patient was advised about the potential for addiction to the benzodiazepine. The concepts in the benzodiazepine treatment contract were reviewed with the patient and the patient agreed. The patient demonstrated good understanding of the benzodiazepine side effect profile. The benefits of benzodiazepine treatment outweigh risks for this patient. The rationale for the psychiatric medications and the alternatives to treatment were discussed with the patient. The side effect profile of the psychiatric medications was reviewed with the patient. Patient demonstrated reasonable understanding of the medication side effects and the above issues. The benefits of psychiatric medications outweigh risks for this patient. I asked the patient call [phone] ([facility]) or to come to open access if needed Medication Reconciliation: Outpatient: Has the patient been taking medications as documented in the EMLR? YES: The patient has been taking medications as documented in the EMLR. Essential Medication List for Review used to complete this medication reconciliation. INCLUDED IN THIS LIST: Alphabetical list of active outpatient prescriptions dispensed from this [place] (local) and dispensed from another [place] or DoD facility (remote) as well as inpatient orders (local, pending and active), local clinic medications, locally documented non-VA medications, and local prescriptions that have or been discontinued in the past 90 days. - All changes in medications, including all non-VA/Herbal/OTC medications were entered into CPRS. - If there were any medications the patient should no longer take, they were discontinued. - The patient/caregiver was instructed to update this list, discard old lists, and take this list to the next appointment, whether with a VA or non-VA provider. /oscar/ Kyle Brewer APRN, STAFF CLINICAL NURSE SPECIALIST Signed: 09/14/2024 12:20 KYLE BREWER [facility]
--- OUTSIDE RECORDS SUMMARY | 2024-10-26 06:00 | XMS_ITS | Encounter Summary ---
Author Name [facility] Organization [facility] Address [address] [place] [address] Care Team Providers Care Resin Remover Name Role Phone FRANCO CAMPBELL Primary Care [...] PART A Nov 24, 2010 PART A [id number] ROHINI CARBAJAL CHARD PATIENT MEDICARE (WNR) MEDICARE (M) PART A Nov 24, 2010 PART A [id number] ROHINI CARBAJAL CHARD PATIENT MEDICARE (WNR) MEDICARE (M) PART A Nov 24, 2008 PART A [id number] ROHINI CARBAJAL CHARD PATIENT MEDICARE (WNR) MEDICARE (M) PART A Nov 24, 2008 PART A [id number] SOLOMON,ROHINI TODD PATIENT Selected Encounter This section includes the information on record at ME for the Encounter. Date/Time Encounter Type Encounter Description Reason Provider Source Oct 26, 2024 10:00 AM PSYTX W PT 60 MINUTES [facility] - IND ICD-10-CM F43.12 Post-traumatic stress disorder, chronic ABRANHUNTER Cara Encounter Template Text not used by ME Assessments - Encounter Diagnoses This section includes the primary and secondary diagnoses documented for the Encounter. Date/Time Primary/Secondary Diagnosis Diagnosis Name Provider Source Oct 26, 2024 10:56 AM PRIMARY Post-traumatic stress disorder, HUNTER Garcia [place] Plan of Treatment: Future Appointments (+ 6 months) and Future Tests (+/- 45 days) The Plan of Treatment section includes future care activities for the patient [facility] This section includes future appointments and future orders which are active, pending or scheduled. Future Appointments This section includes appointments that were scheduled to occur 6 months from the date of the Encounter, up to a maximum of 20 appointments. The data comes from all [place] treatment facilities. Appointment Date/Time Appointment Type Appointme nt Facility Name Oct 28, 2024 09:00 AM AMBULATORY - MEDICINE [facility] [place] [facility] Nov 05, 2024 11:30 AM [facility]ORY - MEDICINE [facility] Nov 11, 2024 02:00 PM AMBULATORY - NONE [facility] [place] [facility] Nov 15, 2024 08:00 AM AMBULATORY - REHAB MEDICIN E [facility] [place] [facility] Dec 02, 2024 09:00 AM AMBULATORY - PSYCHIATRY [facility] [place] [facility] Dec 02, 2024 10:30 AM [facility]ORY [facility]IC[facility] Dec 15, 2024 10:30 AM AMBULATORY - MEDICINE [facility] [place] [facility] Dec 24, 2024 03:00 PM [facility]ATORY - MEDICINE [facility] Jan 04, 2025 11:00 AM AMBULATORY - PSYCHIATRY [facility] [place] [facility] Jan 11, 2025 11:30 AM AMBULATORY - PSYCHIATRY [facility] Feb 15, 2025 10:00 AM AMBULATORY - PSYCHIATRY [facility] [place] [facility] Mar 15, 2025 11:30 AM [facility] MEDICINE [facility] March 24, 2025 10:00 AM [facility] April 22, 2025 02:30 PM AM[facility]ULAT[facility] - MEDICINE [facility] Active, Pending, and Scheduled Orders This section includes a listing of several types of active, pending, and scheduled orders, including clinic medications orders, diagnostic test orders, procedure orders and consult orders; where the start date of the order is 45 days before the date of the Encounter or 45 days after the date of theEncounter. The data comes from all [place] treatment facilities. Test Date/Time Test Type Test Details Facility Name Nov 16, 2024 12:47 PM Consult Order DERMATOLOG Y/[facility] (OUTPT) Cons Fire Production Operator's Choice [facility] Lab Results: +/- 30 days of the encounter This section includes the Chemistry and Hematology Lab Results on record with ME for the patient. Radiology Reports and Pathology Reports are provided separately, in subsequent sections. Lab Results This section contains the Chemistry/Hematology Results that were resulted 30 days before or 30 daysafter the date of the Encounter. Date/Time Source Result Type Result - Unit Interpretation Reference Range Specimen Type Comment Nov 15, 2024 08:13 AM [place] TSH SERUM Specimen Type: SERUM No comment entered. Ordering Provider: RAOUL MCKEON Report Released Date/Time: Nov 05, 2024 12:05 PM Reporting Lab: [address] [address] Performing Lab: [address] [address] TSH 0.87 u[IU]/mL 0.35-5.00 Nov 15, 2024 08:13 AM [place] VITAMIN D (25-OH) SERUM Specimen Type : SERUM No comment entered. Ordering Provider: RAOUL MCKEON Report Released Date/Time: Nov 05, 2024 12:05 PM Reporting Lab: [address] [address] Performing Lab: [address] [address] VITAMIN D (25-OH) 38 ng/mL 20-50 Nov 15, 2024 08:13 AM [place] CBC BLOOD Sp ecimen Type: BLOOD No comment entered. Ordering Provider: RAOUL MCKEON Report Released Date/Time: Nov 05, 2024 12:05 PM Reporting Lab: [facility] [address] [address] [address] Performing Lab: [address] [address] WBC 6.55 10*3/uL 4.50-11.00 RBC 5.19 10*6/uL 4.23-5.66 HGB 14.8 g/dL 12.8-17 HCT 45.2 39.2-50.4 MCV 87.1 fL 82-99 MCHC 32.7 g/dL 30.8-35.1 PLT 283 10*3/uL 140-360 RDW-CV 12.4 12.0-16.0 MCH 28.5 pg 26.2-32.6 Nov 15, 2024 08:13 AM [place] LIPID PANEL FASTING SERUM Specimen Ty pe: SERUM No comment entered. Ordering Provider: RAOUL MCKEON Report Released Date/Time: Nov 05, 2024 12:05 PM Reporting Lab: [address] [address] Performing Lab: [address] [address] CHOLESTEROL 148 mg/dL TRIGLYCERIDE 111 mg/dL 0-150 LDL calculated 83 mg/dL 0-129 CHOL/HDL 3.4 HDL CHOLESTEROL 43 mg/dL 40-60 Nov 15, 2024 08:13 AM [place] BASIC METABOLIC PANEL (fasting) SERUM Specimen Type: SERUM No comment entered. Ordering Provider: RAOUL MCKEON Report Released Date/Time: Nov 05, 2024 12:05 PM Reporting Lab: [address] [address] Performing Lab: [address] [address] UREA NITROGEN 17 mg/dL 7-25 GLUCOSE 111 mg/dL H 65-100 SODIUM 139 mmol/L 135-145 POTASSIUM 4.3 mmol/L 3.5-5.0 CHLORIDE 105 mmol/L 100-110 CO2 27 meq/L 20-30 CREATININE, Serum 1.42 mg/dL H 0.50-1.40 eGFR(CKD-EPI 2020) 51 mL/min L >60 Nov 15, 2024 08:13 AM [place] LIVER FUNCTION SERUM Specimen Type: SERUM No comment entered. Ordering Provider: RAOUL MCKEON Report Released Date/Time: Nov 05, 2024 12:05 PM Reporting Lab: [address] [address] Performing Lab: [address] [address] PROTEIN,TOTAL 6.5 g/dL 6.0-8.3 ALBUMIN 3.6 g/dL 3.5-5.0 ALKALINE PHOSPHATASE 84 U/L 40-150 AST 20 U/L 5-34 ALT 21 U/L BILIRUBIN, TOTAL 0.8 mg/dL 0.2-1.2 Nov 15, 2024 08:13 AM [place] URINALYSIS URINE S pecimen Type: URINE Comment: If Glucose = >500 and Ketones are positive, please alert the Physician. Ordering Provider: RAOUL MCKEON Report Released Date/Time: Nov 05, 2024 12:05 PM Reporting Lab: [address] [address] Performing Lab: [address] [address] UA COLOR Yellow Yellow UA APPEARANCE Clear Clear UA GLUCOSE Normal mg/dL Negative UA KETONES NEGATIVE mg/dL Negative UA BLOOD NEGATIVE mg/dL Negative UA PROTEIN NEGATIVE mg/dL Negative UA NITRITE NEGATIVE mg/dL Negative UA BILIRUBIN NEGATIVE mg/dL Negative UA SPECIFIC GRAVITY 1.019 1.016-1.022 UA pH 6.0 5.0-9.0 UA UROBILINOGEN 2 mg/dL <2.0 UA LEUKOCYTE NEGATIVE Negative Nov 15, 2024 08:13 AM [place] HEMOGLOBIN A1C PANEL BLOOD Specimen T ype: BLOOD Comment: Values obtained from A1C measurements can vary. For atypical A1C assays, a reported value of 7.0 could actually be between 6.72 and 7.28 if measured by a reference method. A reported value of 9.0 could actually be between 8.73 and 9.27. Ref: http://www.ngsp.org/CAPdata.asp Ordering Provider: RAOUL MCKEON Report Released Date/Time: Nov 05, 2024 12:05 PM Reporting [facility] [address] [facility] [address] Performing Lab: [facility] [address] [facility] [address] HEMOGLOBIN A1C 5.9 H 4.0-5.6 Social History: Smoking Status (Most current) and Tobacco Use (All prior to encounter date) This section includes the most current, and the historical, smoking and tobacco- related health factors from the ME facility where the Encounter took place. Current Smoking Status This section includes the most current smoking, or tobacco-related health factor, from the ME facility where the Encounter took place. Date/Time Current Smoking Status Comment Facil ity Jul 29, 2024 11:00 AM VA-TOBACCO FORMER USER [place] Tobacco Use History This section includes a history of the smoking, or tobacco-related health factors, that were collected on or before the date of the Encounter. The data comes from the [place] facility where the Encounter took place. Date/Time Smoking Status/Tobacco Use Comment F acility Jul 29, 2024 11:00 AM VA-TOBACCO QUIT 5 TO < 15 YRS [place] Jun 10, 2023 03:30 PM VA-TOBACCO FORMER USER [place] Jun 10, 2023 03:30 PM VA-TOBACCO QUIT 1 TO < 5 YRS [place] Jul 09, 2022 03:30 PM VA-TOBACCO FORMER USER [place] Jul 09, 2022 03:30 PM VA-TOBACCO QUIT 15 YRS OR MORE [place] Jun 08, 2021 09:00 AM VA-TOBACCO FORMER USER [place] Jun 08, 2021 09:00 AM VA-TOBACCO QUIT < 1 YEAR [place] Jun 20, 2020 09:38 AM VA-TOBACCO FORMER USER [place] Jun 20, 2020 09:38 AM VA-TOBACCO QUIT 5 TO < 15 YRS [place] Feb 10, 2019 06:20 PM VA-TOBACCO DOESNT USE WI 30 MIN WAKEUP [place] Feb 10, 2019 06:20 PM VA-TOBACCO USE 30 YEARS OR MORE [place] Feb 10, 2019 06:20 PM VA-TOBACCO USE ADVICE [place] Feb 10, 2019 06:20 PM VA-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 Mar 19, 2016 10:33 AM V1-PT NOT INTEREST ED IN QUIT TOBACCO USE [place] Feb 07, 2016 09:06 AM CURRENT SMOKER States he smokes cigars every couple of days [place] Dec 06, 2014 09:39 AM CURRENT SMOKER [facility] Oct 29, 2013 08:14 AM V1-PT DECLINES REF TO TOBACCO CESS [facility] Oct 29, 2013 08:14 AM V1-PT READY TO ROSANGELA T TOBACCO USE [place] May 20, 2013 09:56 AM QUIT TOBACCO USE IN PAST YEAR [place] Nov 12, 2012 08:56 AM V1-PT DECLINES REF TO TOBACCO CESS [facility] Nov 12, 2012 08:56 AM V1-PT DECLINES TOB ACCO CESSATION [facility] Nov 12, 2012 08:56 AM V1-PT THINKING ABO UT QUIT TOBACCO USE [place] Aug 12, 2012 08:38 AM CURRENT SMOKER 4-5cigars/d [place] Aug 05, 2011 11:00 AM CURRENT SMOKER Pt. smikes 1 cigar a day! [place] Aug 05, 2011 11:00 AM V1-PT DECLINES REF TO TOBACCO CESS [facility] Aug 05, 2011 11:00 AM V1-PT DECLINES TOB ACCO CESSATION [facility] Aug 05, 2011 11:00 AM V1-PT THINKING ABO UT QUIT TOBACCO USE [place] Sep 27, 2010 08:35 AM V1-PT DECLINES REF TO TOBACCO CESS [facility] Sep 27, 2010 08:35 AM V1-PT READY TO ROSANGELA T TOBACCO USE [place] April 03, 2010 02:39 PM QUIT TOBACCO USE IN PAST YEAR [place] Radiology Reports: +/- 30 days of the encounter Radiology Reports For cases when an order for radiology services may have been completed prior to the date of the Encounter, the report list includes the Radiology Reports that were completed up to 30 days before dateof the Encounter. For cases when an order for radiology services may have been completed after the date of the Encounter, the report list also includes the Radiology Reports that were completed up to30 days after date of the Encounter. The data comes from all [facility] facilities. Date/Time Radiology Report Provider Source Nov 15, 2024 01:[address] ANGIOGRAPHY CHEST: CAMACHO CARBAJAL [id number] -[id number] M Exm Date: NOV 15, 2024@13:12 Req Phys: RAOUL MCKEON Loc: [facility]/OUTSIDE IMAGING NON-CNT (R Img Loc: OUTSIDE GENERAL RADIOLOGY Service: Unknown (Case [id number] COMPLETE) OUTSIDE CT ANGIOGRAPHY CHEST (RAD Detailed) CPT:94515 Reason for Study: outside images have been uploaded for continuity of care Clinical History: outside images have been uploaded for continuity of care Report Status: Electronically Filed Date Reported: NOV 15, 2024 Report: THIS EXAM WAS PERFORMED AND INTERPRETED AT AN OUTSIDE HOSPITAL Impression: THIS EXAM WAS PERFORMED AND INTERPRETED AT AN OUTSIDE HOSPITAL Primary Diagnostic Code: VERIFIED BY: / *ELECTRONICALLY FILED* [facility] Nov 15, 2024 10:24 AM CHEST (2 VIEWS): CAMACHO CARBAJAL [id number] -1945 M Exm Date: NOV 15, 2024@10:24 Req Phys: RAOUL MCKEON Loc: [facility]/SO/PACT 7 (Req'g Loc) Img Loc: [place]/BUILDING 1 Service: [place] [address] (Case 14 COMPLETE) CHEST (2 VIEWS) (RAD Detailed) CPT:63763 Reason for Study: persistent cough x 3 weeks Clinical History: Covering resident, fellow, COMMERCIAL LOAN OFFICER or attending: Raoul mckeon NP [place] Pager: [phone] Backup pager: History: Report Status: Verified Date Reported: NOV 15, 2024 Date Verified: NOV 15, 2024 Greenhouse Grower E-Sig:/ES/CHACHO TUCKER MD Report: Chest x-ray: 2 views Lung volumes are low. There are no infiltrates. The heart silhouette does not appear enlarged. Impression: No active disease. Primary Diagnostic Code: No immediate attention required Primary Interpreting Staff: CHACHO TUCKER MD, Staff Physician (Greenhouse Grower) /CHACHO PRINGLE MD [facility] Encounter Notes: All associated encounter notes This section contains the clinical notes associated to the Encounter. Date/Time Encounter Note(s) Provider Source Oct 26, 2024 10:50 AM SOCIAL WORK NOTE: LOCAL TITLE: SOCIAL WORK NOTE STANDARD TITLE: SOCIAL WORK NOTE DATE OF NOTE: OCT 26, 2024@10:50 ENTRY DATE: OCT 26, 2024@10:50:56 AUTHOR: HUNTER OSULLIVAN COSIGNER: ANDREI MILLER URGENCY: STATUS: COMPLETED INFORMED CONSENT REVIEWED: At beginning of session reviewed rights and limits of confidentiality, mandatory reporting situations, duty to warn and protect, [place] Warning, (if treatment team finds patient to be an acute danger to himself or others, that this information could be relayed to a court of law and presented to a batch maker), and DOD access for active duty service members. Provided Suicide Prevention Hotline number, and other contact numbers as necessary. VISIT DURATION 60 minutes DIAGNOSES: PTSD, chronic [employer] STATEMENT OF GOALS/CONCERNS: I've been seeing a therapist at the [facility] for years for my PTSD but he left and I didn't click well with the new ragini. I've got a lot of PTSD from [place]. I get flashbacks, a lot of anxiety, nightmares, I've struck my in my sleep, so now we've got a bar between us so I don't do that. I've had difficulties with suicidal ideations in the past. A lot of stress, depression, anxiety. I used to drink but I don't anymore. I've been gambling habitually and that's been a problem. I also have some cognitive problems, difficulty remembering things mainly, and my has to bring me places to I don't forget where I am, which I do sometimes. I'm looking to get some help with this stuff. Even though I liked my therapist at the [facility], it got to where he never asked me about my symptoms and we never worked on them, but I've been getting worse all the while. SESSION FOCUS: [place] discussed some of his concerns about aging. reiterated his prediction that he has about ten more years of life left. stated that he feels strongly about using these years well and that he would like to travel someplace each year. [place] discussed the disagreements about money that he has with his . The issue is not resolved and may never be but [place] feels that while they always hold differing opinions, they do not always discuss them and he can live with that. INTERVENTIONS: Psychotherapeutic Interventions: Validating, active listening, reflecting Psychoeducation reviewed: NA ASSESSMENT: BRIEF ASSESSMENT OF MENTAL STATUS: 1. Appearance (grooming, attire, apparent age) within normal limits: Yes 2. Thought content was organized and goal directed: Yes 3. Speech was coherent and unimpaired: Yes 4. Affect was appropriate and unremarkable: Yes 5. Demeanor was calm, with no signs of agitation or restlessness: Yes 6. Sleep was largely unimpaired and restful: Yes 7. No evidence of psychosis (hallucinations or delusions): Yes 8. Mood was normal: Yes Other Observations: RISK ASSESSMENT: Denies current suicidal/homicidal ideation PLAN FOR FOLLOW-UP: Monthly sessions This case is supervised by LOUIS Pardo. Diagnosis, treatment plan, and response to care are reviewed in standard 1-hour, or more, weekly individual supervision /oscar/ HUNTER OSULLIVAN GEEK SQUAD MANAGER Signed: 10/26/2024 10:56 /oscar/ LOUIS PARDO [employer] [facility] Cosigned: 10/26/2024 13:00 HUNTER OSULLIVAN
--- OUTSIDE RECORDS SUMMARY | 2024-11-05 07:30 | XMS_ITS | Encounter Summary ---
Author Name [facility] [place] Organization [facility] [place] Address [address] [place] [address] Care Team Providers Care Tube Room Supervisor Name Role Phone FRANCO CAMPBELL Primary Care [...] PART A Nov 24, 2010 PART A [id number] ROHINI CARBAJAL CHARD PATIENT MEDICARE (WNR) MEDICARE (M) PART A Nov 24, 2010 PART A [id number] SOLOMON,ROHINI CHARD PATIENT MEDICARE (WNR) MEDICARE (M) PART A Nov 24, 2008 PART A [id number] SOLOMON,ROHINI CHARD PATIENT MEDICARE (WNR) MEDICARE (M) PART A Nov 24, 2008 PART A [id number] [phone] SOLOMONROHINI PATIENT Selected Encounter This section includes the information on record at [place] for the Encounter. Date/Time Encounter Type Encounter Description Reason Provider Source Nov 05, 2024 11:30 AM OFFICE O/P EST MOD 30 MIN PRIMARY CARE/MEDICINE ICD-10-CM G47.33 Obstructive sleep apnea (adult) (pediatric) RAOUL MCKEON [place] Encounter Template Text not used by [place] Assessments - Encounter Diagnoses This section includes the primary and secondary diagnoses documented for the Encounter. Date/Time Primary/Secondary Diagnosis Diagnosis Name Provider Source Nov 21, 2024 02:03 PM PRIMARY Obstructive sleep apnea (adult) (pediatric) RAOUL MCKEON [facility] Nov 21, 2024 02:03 PM SECONDARY Abdominal aortic aneurysm, without rupture, unspecified RAOUL MCKEON [facility] Nov 21, 2024 02:03 PM SECONDARY Disorder of the skin and subcutaneous tissue, unspecified RAOUL MCKEON [facility] Nov 21, 2024 02:03 PM SECONDARY Subacute cough RAOUL MCKEON [facility] Nov 21, 2024 02:03 PM SECONDARY Thoracic aortic aneurysm, without rupture, unspecified RAOUL MCKEON Plan of Treatment: Future Appointments (+ 6 months) and Future Tests (+/- 45 days) The Plan of Treatment section includes future care activities for the [facility] [place] [facility] This section includes future appointments and future orders which are active, pending or scheduled. Future Appointments This section includes appointments that were scheduled to occur 6 months from the date of the Encounter, up to a maximum of 20 appointments. The data comes from all [place] treatment facilities. Appointment Date/Time Appointment Type Appointme nt Facility Name Nov 11, 2024 02:00 PM AMBULATORY - NONE [place] [facility] [place] [facility] Nov 15, 2024 08:00 AM AMBULATORY - REHAB MEDICIN [place] [facility] [place] [facility] Dec 02, 2024 09:00 AM AMBULATORY - [place]CHIATRY [place] [facility] [place] [facility] Dec 02, 2024 10:30 AM AMBULATORY - MEDICINE [facility] Dec 15, 2024 10:30 AM AMBULATORY - MEDICINE [place] [facility] [place] [facility] Dec 24, 2024 03:00 PM AMBULATORY - MEDICINE [facility] Jan 04, 2025 11:00 AM AMBULATORY - [place]IATRY [place] [facility] [place] [facility] Jan 11, 2025 11:30 AM AMBULATORY - PSYCHIATRY [facility] [place] Feb 15, 2025 10:00 AM AMBULATORY - PSYCHIATRY [facility] Mar 15, 2025 11:30 AM AMBULATORY - MEDICINE [facility] March 24, 2025 10:00 AM AMBULATORY PSYCHIATRY [facility] April 22, 2025 02:30 PM AMBULATORY - MEDICINE [facility] May 03, 2025 11:00 AM AMBULATORY - PSYCHIATRY [facility] Active, Pending, and Scheduled Orders This section includes a listing of several types of active, pending, and scheduled orders, including clinic medications orders, diagnostic test orders, procedure orders and consult orders; where the start date of the order is 45 days before the date of the Encounter or 45 days after the date of theEncounter. The data comes from all [place] treatment facilities. Test Date/Time Test Type Test Details Facility Name Nov 16, 2024 12:47 PM Consult Order DERMATOLOG Y/NHM (OUTPT) Cons Operational Intelligence Officer's Choice [facility] Lab Results: +/- 30 days of the encounter This section includes the Chemistry and Hematology Lab Results on record with [place] for the patient. Radiology Reports and Pathology Reports are provided separately, in subsequent sections. Lab Results This section contains the Chemistry/Hematology Results that were resulted 30 days before or 30 daysafter the date of the Encounter. Date/Time Source Result Type Result - Unit Interpretation Reference Range Specimen Type Comment Nov 15, 2024 08:13 AM [facility] TSH SERUM Specimen Type: SERUM No comment entered. Ordering Provider: RAOUL MCKEON Report Released Date/Time: Nov 05, 2024 12:05 PM Reporting Lab: [address] [address] Performing Lab: [address] [address] TSH 0.87 u[IU]/mL 0.35-5.00 Nov 15, 2024 08:13 AM [facility] VITAMIN D (25-OH) SERUM Specimen Type : SERUM No comment entered. Ordering Provider: RAOUL MCKEON Report Released Date/Time: Nov 05, 2024 12:05 PM Reporting Lab: [address] [address] Performing Lab: [address] [address] VITAMIN D (25-OH) 38 ng/mL 20-50 Nov 15, 2024 08:13 AM [facility] CBC BLOOD Sp ecimen Type: BLOOD No comment entered. Ordering Provider: RAOUL MCKEON Report Released Date/Time: Nov 05, 2024 12:05 PM Reporting Lab: [address] [address] Performing Lab: [address] [address] WBC 6.55 10*3/uL 4.50-11.00 RBC 5.19 10*6/uL 4.23-5.66 HGB 14.8 g/dL 12.8-17 HCT 45.2 39.2-50.4 MCV 87.1 fL 82-99 MCHC 32.7 g/dL 30.8-35.1 PLT 283 10*3/uL 140-360 RDW-CV 12.4 12.0-16.0 MCH 28.5 pg 26.2-32.6 Nov 15, 2024 08:13 AM [facility] BASIC METABOLIC PANEL (fasting) SERUM Specimen Type: SERUM No comment entered. Ordering Provider: RAOUL MCKEON Report Released Date/Time: Nov 05, 2024 12:05 PM Reporting Lab: [address] [address] Performing Lab: [address] [address] UREA NITROGEN 17 mg/dL 7-25 GLUCOSE 111 mg/dL H 65-100 SODIUM 139 mmol/L 135-145 POTASSIUM 4.3 mmol/L 3.5-5.0 CHLORIDE 105 mmol/L 100-110 CO2 27 meq/L 20-30 CREATININE, Serum 1.42 mg/dL H 0.50-1.40 eGFR(CKD-EPI 2020) 51 mL/min L >60 Nov 15, 2024 08:13 AM [facility] LIPID PANEL FASTING SERUM Specimen Ty pe: SERUM No comment entered. Ordering Provider: RAOUL MCKEON Report Released Date/Time: Nov 05, 2024 12:05 PM Reporting Lab: [address] [address] Performing Lab: [address] [address] CHOLESTEROL 148 mg/dL TRIGLYCERIDE 111 mg/dL 0-150 LDL calculated 83 mg/dL 0-129 CHOL/HDL 3.4 HDL CHOLESTEROL 43 mg/dL 40-60 Nov 15, 2024 08:13 AM [facility] LIVER FUNCTION SERUM Specimen Type: SERUM No comment entered. Ordering Provider: RAOUL MCKEON Report Released Date/Time: Nov 05, 2024 12:05 PM Reporting Lab: [address] [address] Performing Lab: [address] [address] PROTEIN,TOTAL 6.5 g/dL 6.0-8.3 ALBUMIN 3.6 g/dL 3.5-5.0 ALKALINE PHOSPHATASE 84 U/L 40-150 AST 20 U/L 5-34 ALT 21 U/L BILIRUBIN, TOTAL 0.8 mg/dL 0.2-1.2 Nov 15, 2024 08:13 AM [facility] URINALYSIS URINE S pecimen Type: URINE Comment: If Glucose = >500 and Ketones are positive, please alert the Physician. Ordering Provider: RAOUL MCKEON Report Released Date/Time: Nov 05, 2024 12:05 PM Reporting Lab: [address] [address] Performing Lab: [address] [phone] UA COLOR Yellow Yellow UA APPEARANCE Clear Clear UA GLUCOSE Normal mg/dL Negative UA KETONES NEGATIVE mg/dL Negative UA BLOOD NEGATIVE mg/dL Negative UA PROTEIN NEGATIVE mg/dL Negative UA NITRITE NEGATIVE mg/dL Negative UA BILIRUBIN NEGATIVE mg/dL Negative UA SPECIFIC GRAVITY 1.019 1.016-1.022 UA pH 6.0 5.0-9.0 UA UROBILINOGEN 2 mg/dL <2.0 UA LEUKOCYTE NEGATIVE Negative Nov 15, 2024 08:13 AM [facility] HEMOGLOBIN A1C PANEL BLOOD Specimen T ype: [...] 05, 2024 12:05 PM Reporting Lab: [facility] [address] [address] Performing Lab: [facility] [address] [address] HEMOGLOBIN A1C 5.9 H 4.0-5.6 Vital Signs: All taken on the encounter date This section contains inpatient and outpatient Vital Signs collected on the date of the Encounter. Date/Time Temperature Pulse Blood Pressure Respiratory Rate SP02 Pain Height Weight Body Mass Index Source Nov 05, 2024 11:44 AM 97.9 73 109/72 18 97 66 206 33 [facility] Social History: Smoking Status (Most current) and Tobacco Use (All prior to encounter date) This section includes the most current, and the historical, smoking and tobacco- related health factors from the [place] facility where the Encounter took place. Current Smoking Status This section includes the most current smoking, or tobacco-related health factor, from the [place] facility where the Encounter took place. Date/Time Current Smoking Status Comment Facil ity Jul 29, 2024 11:00 AM [place]-TOBACCO QUIT 5 TO < 15 YRS [facility] Tobacco Use History This section includes a history of the smoking, or tobacco-related health factors, that were collected on or before the date of the Encounter. The data comes from the [place] facility where the Encounter took place. Date/Time Smoking Status/Tobacco Use Comment F acility Jul 29, 2024 11:00 AM VA-TOBACCO QUIT 5 TO < 15 YRS [facility] Jun 10, 2023 03:30 PM VA-TOBACCO FORMER USER [facility] Jun 10, 2023 03:30 PM VA-TOBACCO QUIT 1 TO < 5 YRS [facility] Jul 09, 2022 03:30 PM VA-TOBACCO FORMER USER [facility] Jul 09, 2022 03:30 PM VA-TOBACCO QUIT 15 YRS OR MORE [facility] Jun 08, 2021 09:00 AM VA-TOBACCO FORMER USER [facility] Jun 08, 2021 09:00 AM VA-TOBACCO QUIT < 1 YEAR [facility] Jun 20, 2020 09:38 AM VA-TOBACCO FORMER USER [facility] Jun 20, 2020 09:38 AM VA-TOBACCO QUIT 5 TO < 15 YRS [facility] Feb 10, 2019 06:20 PM VA-TOBACCO DOESNT USE WI 30 MIN WAKEUP [facility] Feb 10, 2019 06:20 PM VA-TOBACCO USE 30 YEARS OR MORE [facility] Feb 10, 2019 06:20 PM VA-TOBACCO USE ADVICE [facility] Feb 10, 2019 06:20 PM VA-TOBACCO USE SPACE AND MISSILE OPERATIONS SPACELIFT NO [facility] Feb 10, 2019 06:20 PM VA-TOBACCO USE MED NO [facility] Feb 10, 2019 06:20 PM VA-TOBACCO USER SOME DAYS [facility] Mar 05, 2018 08:47 AM QUIT TOBACCO USE 1 -7 YEARS AGO [facility] Oct 07, 2017 02:29 PM QUIT TOBACCO USE IN PAST YEAR [facility] March 27, 2017 02:09 PM QUIT TOBACCO USE IN PAST Y EAR cigars [facility] Dec 04, 2016 02:35 PM CURRENT SMOKER [facility] Mar 19, 2016 10:33 AM V1-PT NOT INTEREST ED IN QUIT TOBACCO USE [facility] Feb 07, 2016 09:06 AM CURRENT SMOKER States he smokes cigars every couple of days [facility] Dec 06, 2014 09:39 AM CURRENT SMOKER [facility] Oct 29, 2013 08:14 AM V1-PT DECLINES REF TO TOBACCO CESS [facility] Oct 29, 2013 08:14 AM V1-PT READY TO ROSANGELA T TOBACCO USE [facility] May 20, 2013 09:56 AM QUIT TOBACCO USE IN PAST YEAR [facility] Nov 12, 2012 08:56 AM V1-PT DECLINES REF TO TOBACCO CESS [facility] Nov 12, 2012 08:56 AM V1-PT DECLINES TOB ACCO CESSATION [facility] Nov 12, 2012 08:56 AM V1-PT THINKING ABO UT QUIT TOBACCO USE [facility] Aug 12, 2012 08:38 AM CURRENT SMOKER 4-5cigars/d [facility] Aug 05, 2011 11:00 AM CURRENT SMOKER Pt. smikes 1 cigar a day! [facility] Aug 05, 2011 11:00 AM V1-PT DECLINES REF TO TOBACCO CESS [facility] Aug 05, 2011 11:00 AM V1-PT DECLINES TOB ACCO CESSATION [facility] Aug 05, 2011 11:00 AM V1-PT THINKING ABO UT QUIT TOBACCO USE [facility] Sep 27, 2010 08:35 AM V1-PT DECLINES REF TO TOBACCO CESS PR [facility] Sep 27, 2010 08:35 AM V1-PT READY TO ROSANGELA T TOBACCO USE [facility] April 03, 2010 02:39 PM QUIT TOBACCO USE IN PAST YEAR [facility] Radiology Reports: +/- 30 days of the [...] the Encounter. The data comes from all [place] treatment facilities. Date/Time Radiology Report Provider Source Nov 15, 2024 01:[address] ANGIOGRAPHY CHEST: CAMACHO CARBAJAL [id number] -1945 M Exm Date: NOV 15, 2024@13:12 Req Phys: RAOUL MCKEON Loc: [facility]/OUTSIDE IMAGING NON-CNT (R Img Loc: OUTSIDE GENERAL RADIOLOGY Service: Unknown (Case [id number] COMPLETE) OUTSIDE CT ANGIOGRAPHY CHEST (RAD Detailed) CPT:76292 Reason for Study: outside images have been uploaded for continuity of care Clinical History: outside images have been uploaded for continuity of care Report Status: Electronically Filed Date Reported: NOV 15, 2024 Report: THIS EXAM WAS PERFORMED AND INTERPRETED AT AN OUTSIDE HOSPITAL Impression: THIS EXAM WAS PERFORMED AND INTERPRETED AT AN OUTSIDE HOSPITAL Primary Diagnostic Code: VERIFIED BY: / *ELECTRONICALLY FILED* [place] [facility] Nov 15, 2024 10:24 AM CHEST (2 VIEWS): CAMACHO CARBAJAL [id number] -1945 M Exm Date: NOV 15, 2024@10:24 Req Phys: RAOUL MCKEON Loc: CWM/SO/PACT 7 (Req'g Loc) Img Loc: [place]/BUILDING 1 Service: Unknown [place] [address] (Case 14 COMPLETE) CHEST (2 VIEWS) (RAD Detailed) CPT:52806 Reason for Study: persistent cough x 3 weeks Clinical History: Covering resident, fellow, AOC DIRECTOR INTELLIGENCE OFFICER or attending: Raoul mckeon NP [place] Pager: [phone] Backup pager: History: Report Status: Verified Date Reported: NOV 15, 2024 Date Verified: NOV 15, 2024 Corporate Development Officer E-Sig:/OSCAR/CHACHO TUCKER MD Report: Chest x-ray: 2 views Lung volumes are low. There are no infiltrates. The heart silhouette does not appear enlarged. Impression: No active disease. Primary Diagnostic Code: No immediate attention required Primary Interpreting Staff: CHACHO TUCKER MD, Staff Physician (Corporate Development Officer) /CHACHO PRINGLE MD [facility] Encounter Notes: All associated encounter notes This section contains the clinical notes associated to the Encounter. Date/Time Encounter Note(s) Provider Source Nov 15, 2024 02:38 PM ADMINISTRATIVE NOT E: LOCAL TITLE: ADMINISTRATIVE NOTE STANDARD TITLE: ADMINISTRATIVE NOTE DATE OF NOTE: NOV 15, 2024@14:38 ENTRY DATE: NOV 15, 2024@14:38:18 AUTHOR: RAOUL MCKEON EXP COSIGNER: URGENCY: STATUS: COMPLETED Please notify patient labs are normal/stable and CXR is normal /oscar/ OFELIA DAVIES CERTIFIED NURSE PRACTITIONER Signed: 11/15/2024 14:39 Receipt Acknowledged By: 11/15/2024 15:19 /oscar/ STANISLAW VALDEZ LPN, KENDRA C [facility] Nov 05, 2024 11:47 AM PRIMARY CARE NURSE PRACTITIONER OUTPATIENT NOTE: LOCAL TITLE: NURSE PRACTITIONER OUTPATIENT NOTE STANDARD TITLE: PRIMARY CARE NURSE PRACTITIONER OUTPATIENT NOTE DATE OF NOTE: NOV 05, 2024@11:47 ENTRY DATE: NOV 05, 2024@11:47:07 AUTHOR: RAOUL MCKEON EXP COSIGNER: URGENCY: STATUS: COMPLETED PRIMARY CARE VISIT CAMACHO CARBAJAL, is a 78 y/o WHITE MALE who [place] today at the [place] [facility]. TYPE OF VISIT: Face to face HPI: thoracic and aortic aneurysms - increased in size with April imaging. Eventually will need stent placed. Followed by vascular surgery has had persistent cough since he had URI a month ago; was negative for Covid. Denies wheezing or SOB but sometimes when the cough starts he can't stop or catch his breath. Worse at night, keeps him awake. Has been using cough drops. Afebrile. Has comorbid COPD. multiple skin lesions on scalp, one under left eye - would like to see Derm States they are itchy and getting bigger. SOURAV, wears cpap. Last sleep study was 5 years ago. His cpap elvia is showing low quality sleep, 70-80%. Recent labs reviewed and all medications were reconciled during this visit. HISTORY: PERIOD OF SERVICE - [employer] FROM Sep TO Nov COMBAT SERVICE INDICATED: No VITAL SIGNS: Temperature 97.9 F [36.6 C] (11/05/2024 11:44) Blood Pressure 109/72 (11/05/2024 11:44) Pulse 73 (11/05/2024 11:44) Respiration 18 (11/05/2024 11:44) Pain 0 (04/16/2024 14:14) BMI BMI: 33.3 Weight 206 lb [93.44 kg] (11/05/2024 11:44) Pulse Oximetry 97% (11/05/2024 11:44) REVIEW OF SYSTEMS: see HPI PHYSICAL EXAMINATION: General: Well-appearing Vivian in no obvious distress. Mental Status: Alert and oriented x4. Neck: Supple. No lymphadenopathy. Thyroid unremarkable. Lungs: CTAB. Normal chest excursion. Eupneic respirations. CV: Heart tones S1, S2. RRR. No M/G/R. No peripheral edema. GI: Abdomen is soft and nontender. No palpable mass or organomegaly. Integument: Flat, dark/light brown lesions x 3 to scalp, no bleeding or open areas. Small white crusty lesion under left eye. Psych: Normal mood and affect. Normal judgment. Cooperative with exam, follows commands. ALLERGIES: Patient has answered [facility] [employer] - see end of note PREVENTIVE MEDICINE GOALS Info Only: [facility] DUE NOW Home Telehealth ([facility]HT) Referral Jul 29 Mental Health Treatment Plan DUE NOW Medication Reconciliation DUE NOW COVID-19 Immunization DUE NOW PAVE Foot Check Nov 24 (Optional) Whole Health Documentation DUE NOW ASSESSMENT/PLAN: 1. post viral persistent cough - start ATB, Mucinex. CXR ordered. 2. skin lesions - referral made to Derm for eval 3. AAA, thoracic aneurysm - followed by vascular surgery. Are increasing in size and will eventually need surgical intervention. 4. SOURAV - sleep elvia on his phone showing poor sleep qualisty. Referral made for new sleep study, possible adjustment in cpap settings. FOLLOW UP: Return to clinic as noted below and/or sooner PRN UPCOMING APPOINTMENTS: 12/02/2024 09:00 CWM/SO/MHC/ABRAN SW 12/02/2024 10:30 CWM/SO/PACT 7 12/15/2024 10:30 NHM/OPTOMETRY/SUE/ 12/24/2024 15:00 CWM/SO/PODIATRY/FEMI 01/11/2025 11:30 SPOPC/MHC/OSMAN 01/27/2025 11:30 CWM/NO/CAT SCAN No barriers noted; patient understands and agrees to current treatment plan. If patient has any questions, concerns or changes in current health status he/she will call or come in to the [facility]. HM: Info Only: [facility]able: Medication Reconciliation: Outpatient: Has the patient been taking medications as documented in the EMLR? YES: The patient has been taking medications as documented in the EMLR. Essential Medication List for Review used to complete this medication reconciliation. INCLUDED IN THIS LIST: Alphabetical list of active outpatient prescriptions dispensed from this [facility] (local) and dispensed from another VA or [facility] facility (remote) as well as [...] with a VA or non-VA provider. /oscar/ OFELIA DAVIES CERTIFIED NURSE PRACTITIONER Signed: 11/21/2024 14:03 RAOUL MCKEON [facility]
--- OUTSIDE RECORDS SUMMARY | 2024-11-11 10:00 | XMS_ITS | Encounter Summary ---
Author Name [facility] [place] [place] Organization [facility] [place] Address [address] [place] [address] Care Team Providers Care Director Of Government Sales Name Role Phone FRANCO CAMPBELL Primary Care [...] PART A Nov 24, 2010 PART A [id number] ROHINI CARBAJAL CHARD PATIENT MEDICARE (WNR) MEDICARE (M) PART A Nov 24, 2010 PART A [id number] SOLOMON,ROHINI CHARD PATIENT MEDICARE (WNR) MEDICARE (M) PART A Nov 24, 2008 PART A [id number] [phone] SOLOMON,ROHINI CHARD PATIENT MEDICARE (WNR) MEDICARE (M) PART A Nov 24, 2008 PART A [id number] [phone] SOLOMONROHINI PATIENT Selected Encounter This section includes the information on record at [place] for the Encounter. Date/Time Encounter Type Encounter Description Reason Provider Source Nov 11, 2024 02:00 PM UNLISTED SPEC DERM SVC/PX DERMATOLOGY ICD-10-CM Z13.89 Encounter for screening for other disorder DAVIDRYAN MarroquinROBINA CLAYTON Cara Encounter Template Text not used by [place] Assessments - Encounter Diagnoses This section includes the primary and secondary diagnoses documented for the Encounter. Date/Time Primary/Secondary Diagnosis Diagnosis Name Provider Source Nov 11, 2024 04:10 PM PRIMARY Encounter for screening for other disorder LIBRA JAMES Plan of Treatment: Future Appointments (+ 6 months) and Future Tests (+/- 45 days) The Plan of Treatment section includes future care activities for the patient from [facility] [place] [facility] This section includes future appointments and future orders which are active, pending or scheduled. Future Appointments This section includes appointments that were scheduled to occur 6 months from the date of the Encounter, up to a maximum of 20 appointments. The data comes from all [place] treatment facilities. Appointment Date/Time Appointment Type Appointme nt Facility Name Nov 15, 2024 08:00 AM AM[place]ULATORY - [place] [facility] Dec 02, 2024 09:00 AM AM[place] [facility] Dec 02, 2024 10:30 AM AMBULATORY - MEDICINE [facility] Dec 15, 2024 10:30 AM [place] [facility] Dec 24, 2024 03:00 PM AMBULATORY - MEDICINE [facility] Jan 04, 2025 11:00 AM [place] [facility] Jan 11, 2025 11:30 AM AMBULATORY - PSYCHIATRY [facility] Feb 15, 2025 10:00 AM [place] [facility] Mar 15, 2025 11:30 AM AMBULATORY - MEDICINE [facility] March 24, 2025 10:00 AM [facility] April 22, 2025 02:30 [facility] May 03, 2025 11:00 AM AMBULATORY PSYCHIATRY [facility] Active, Pending, and Scheduled Orders This section includes a listing of several types of active, pending, and scheduled orders, including clinic medications orders, diagnostic test orders, procedure orders and consult orders; where the start date of the order is 45 days before the date of the Encounter or 45 days after the date of theEncounter. The data comes from all [place] treatment facilities. Test Date/Time Test Type Test Details Facility Name Nov 16, 2024 12:47 PM Consult Order DERMATOLOG Y/[facility] (OUTPT) Cons Patient Care Assistant's Choice [facility] Lab Results: +/- 30 days of the encounter This section includes the Chemistry and Hematology Lab Results on record with [place] for the patient. Radiology Reports and Pathology Reports are provided separately, in subsequent sections. Lab Results This section contains the Chemistry/Hematology Results that were resulted 30 days before or 30 daysafter the date of the Encounter. Date/Time Source Result Type Result - Unit Interpretation Reference Range Specimen Type Comment Nov 15, 2024 08:13 AM [facility] TSH SERUM Specimen Type: SERUM No comment entered. Ordering Provider: RAOUL MCKEON Report Released Date/Time: Nov 05, 2024 12:05 PM Reporting Lab: [facility] [address] [address] Performing Lab: [facility] [address] [address] TSH 0.87 u[IU]/mL 0.35-5.00 Nov 15, 2024 08:13 AM [facility] VITAMIN D (25-OH) SERUM Specimen Type : SERUM No comment entered. Ordering Provider: RAOUL MCKEON Report Released Date/Time: Nov 05, 2024 12:05 PM Reporting Lab: [facility] [address] [facility] [address] Performing Lab: [address] [address] VITAMIN D (25-OH) 38 ng/mL 20-50 Nov 15, 2024 08:13 AM [facility] CBC BLOOD Sp ecimen Type: BLOOD No comment entered. Ordering Provider: RAOUL MCKEON Report Released Date/Time: Nov 05, 2024 12:05 PM Reporting Lab: [address] [address] Performing Lab: [facility] [address] WBC 6.55 10*3/uL 4.50-11.00 RBC 5.19 10*6/uL 4.23-5.66 HGB 14.8 g/dL 12.8-17 HCT 45.2 39.2-50.4 MCV 87.1 fL 82-99 MCHC 32.7 g/dL 30.8-35.1 PLT 283 10*3/uL 140-360 RDW-CV 12.4 12.0-16.0 MCH 28.5 pg 26.2-32.6 Nov 15, 2024 08:13 AM [facility] LIVER FUNCTION SERUM Specimen Type: SERUM No comment entered. Ordering Provider: RAOUL MCKEON Report Released Date/Time: Nov 05, 2024 12:05 PM Reporting Lab: [address] [address] Performing Lab: [address] [address] PROTEIN,TOTAL 6.5 g/dL 6.0-8.3 ALBUMIN 3.6 g/dL 3.5-5.0 ALKALINE PHOSPHATASE 84 U/L 40-150 AST 20 U/L 5-34 ALT 21 U/L BILIRUBIN, TOTAL 0.8 mg/dL 0.2-1.2 Nov 15, 2024 08:13 AM [facility] URINALYSIS URINE S pecimen Type: URINE Comment: If Glucose = >500 and Ketones are positive, please alert the Physician. Ordering Provider: RAOUL MCKEON Report Released Date/Time: Nov 05, 2024 12:05 PM Reporting Lab: [address] [address] Performing Lab: [address] [address] UA COLOR Yellow Yellow UA APPEARANCE Clear Clear UA GLUCOSE Normal mg/dL Negative UA KETONES NEGATIVE mg/dL Negative UA BLOOD NEGATIVE mg/dL Negative UA PROTEIN NEGATIVE mg/dL Negative UA NITRITE NEGATIVE mg/dL Negative UA BILIRUBIN NEGATIVE mg/dL Negative UA SPECIFIC GRAVITY 1.019 1.016-1.022 UA pH 6.0 5.0-9.0 UA UROBILINOGEN 2 mg/dL <2.0 UA LEUKOCYTE NEGATIVE Negative Nov 15, 2024 08:13 AM [facility] BASIC METABOLIC PANEL (fasting) SERUM Specimen Type: SERUM No comment entered. Ordering Provider: RAOUL MCKEON Report Released Date/Time: Nov 05, 2024 12:05 PM Reporting Lab: [address] [address] Performing Lab: [address] [address] UREA NITROGEN 17 mg/dL 7-25 GLUCOSE 111 mg/dL H 65-100 SODIUM 139 mmol/L 135-145 POTASSIUM 4.3 mmol/L 3.5-5.0 CHLORIDE 105 mmol/L 100-110 CO2 27 meq/L 20-30 CREATININE, Serum 1.42 mg/dL H 0.50-1.40 eGFR(CKD-EPI 2020) 51 mL/min L >60 Nov 15, 2024 08:13 AM [facility] HEMOGLOBIN A1C PANEL BLOOD Specimen T ype: [...] Nov 05, 2024 12:05 PM Reporting Lab: [address] [address] Performing Lab: [address] [address] HEMOGLOBIN A1C 5.9 H 4.0-5.6 Nov 15, 2024 08:13 AM [facility] LIPID PANEL FASTING SERUM Specimen Ty pe: SERUM No comment entered. Ordering Provider: RAOUL MCKEON Report Released Date/Time: Nov 05, 2024 12:05 PM Reporting Lab: [address] [address] Performing Lab: [address] [address] CHOLESTEROL 148 mg/dL TRIGLYCERIDE 111 mg/dL 0-150 LDL calculated 83 mg/dL 0-129 CHOL/HDL 3.4 HDL CHOLESTEROL 43 mg/dL 40-60 Social History: Smoking Status (Most current) and Tobacco Use (All prior to encounter date) This section includes the most current, and the historical, smoking and tobacco- related health factors from the [place] facility where the Encounter took place. Current Smoking Status This section includes the most current smoking, or tobacco-related health factor, from the [place] facility where the Encounter took place. Date/Time Current Smoking Status Comment Facil ity Jul 29, 2024 11:00 AM [facility]-TOBACCO FORMER USER [facility] Tobacco Use History This section includes a history of the smoking, or tobacco-related health factors, that were collected on or before the date of the Encounter. The data comes from the [place] facility where the Encounter took place. Date/Time Smoking Status/Tobacco Use Comment F marc Jul 29, 2024 11:00 AM VA-TOBACCO QUIT 5 TO < 15 YRS [facility] Jun 10, 2023 03:30 PM VA-TOBACCO FORMER USER [facility] Jun 10, 2023 03:30 PM VA-TOBACCO QUIT 1 TO < 5 YRS [facility] Jul 09, 2022 03:30 PM VA-TOBACCO FORMER USER [facility] Jul 09, 2022 03:30 PM VA-TOBACCO QUIT 15 YRS OR MORE [facility] Jun 08, 2021 09:00 AM VA-TOBACCO FORMER USER [facility] Jun 08, 2021 09:00 AM VA-TOBACCO QUIT < 1 YEAR [facility] Jun 20, 2020 09:38 AM VA-TOBACCO FORMER USER [facility] Jun 20, 2020 09:38 AM VA-TOBACCO QUIT 5 TO < 15 YRS [facility] Feb 10, 2019 06:20 PM VA-TOBACCO DOESNT USE WI 30 MIN WAKEUP [facility] Feb 10, 2019 06:20 PM VA-TOBACCO USE 30 YEARS OR MORE [facility] Feb 10, 2019 06:20 PM VA-TOBACCO USE ADVICE [facility] Feb 10, 2019 06:20 PM VA-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 [facility] Feb 10, 2019 06:20 PM VA-TOBACCO USE MED NO [facility] Feb 10, 2019 06:20 PM VA-TOBACCO USER SOME DAYS [facility] Mar 05, 2018 08:47 AM QUIT TOBACCO USE 1 -7 YEARS AGO [facility] Oct 07, 2017 02:29 PM QUIT TOBACCO USE IN PAST YEAR [facility] March 27, 2017 02:09 PM QUIT TOBACCO USE IN PAST Y EAR cigars [facility] Dec 04, 2016 02:35 PM [facility] Mar 19, 2016 10:33 AM V1-PT NOT INTEREST ED IN QUIT TOBACCO USE [facility] Feb 07, 2016 09:06 AM CURRENT SMOKER States he smokes cigars every couple of days [facility] Dec 06, 2014 09:39 AM [facility] Oct 29, 2013 08:14 AM V1-PT DECLINES REF TO TOBACCO CESS [facility] Oct 29, 2013 08:14 AM V1-PT READY TO ROSANGELA T TOBACCO USE [facility] May 20, 2013 09:56 AM QUIT TOBACCO USE IN PAST YEAR [facility] Nov 12, 2012 08:56 AM V1-PT DECLINES REF TO TOBACCO CESS [facility] Nov 12, 2012 08:56 AM V1-PT DECLINES TOB ACCO CESSATION [facility] Nov 12, 2012 08:56 AM V1-PT THINKING ABO UT QUIT TOBACCO USE [facility] Aug 12, 2012 08:38 AM CURRENT SMOKER 4-5cigars/d [facility] Aug 05, 2011 11:00 AM CURRENT SMOKER Pt. smikes 1 cigar a day! [facility] Aug 05, 2011 11:00 AM V1-PT DECLINES REF TO TOBACCO CESS [facility] Aug 05, 2011 11:00 AM V1-PT DECLINES TOB ACCO CESSATION [facility] Aug 05, 2011 11:00 AM V1-PT THINKING ABO UT QUIT TOBACCO USE [facility] Sep 27, 2010 08:35 AM V1-PT DECLINES REF TO TOBACCO CESS [facility] Sep 27, 2010 08:35 AM V1-PT READY TO ROSANGELA T TOBACCO USE [facility] April 03, 2010 02:39 PM QUIT TOBACCO USE IN PAST YEAR [facility] Radiology Reports: +/- 30 days of the [...] the Encounter. The data comes from all [place] treatment facilities. Date/Time Radiology Report Provider Source Nov 15, 2024 01:[address] ANGIOGRAPHY CHEST: CAMACHO CARBAJAL [id number] -1945 M Exm Date: NOV 15, 2024@13:12 Req Phys: RAOUL MCKEON Loc: [facility]/OUTSIDE IMAGING NON-CNT (R Img Loc: OUTSIDE GENERAL RADIOLOGY Service: Unknown (Case [id number] COMPLETE) OUTSIDE CT ANGIOGRAPHY CHEST (RAD Detailed) CPT:20379 Reason for Study: outside images have been uploaded for continuity of care Clinical History: outside images have been uploaded for continuity of care Report Status: Electronically Filed Date Reported: NOV 15, 2024 Report: THIS EXAM WAS PERFORMED AND INTERPRETED AT AN OUTSIDE HOSPITAL Impression: THIS EXAM WAS PERFORMED AND INTERPRETED AT AN OUTSIDE HOSPITAL Primary Diagnostic Code: VERIFIED BY: / *ELECTRONICALLY FILED* [facility] Nov 15, 2024 10:24 AM CHEST (2 VIEWS): CAMACHO CARBAJAL [id number] -1945 M Exm Date: NOV 15, 2024@10:24 Req Phys: RAOUL MCKEON Loc: [facility]/SO/PACT 7 (Req'g Loc) Img Loc: [facility]/BUILDING 1 Service: [place] [address] (Case [id number] COMPLETE) CHEST (2 VIEWS) (RAD Detailed) CPT:85979 Reason for Study: persistent cough x 3 weeks Clinical History: Covering resident, fellow, 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 There are no infiltrates. The heart silhouette does not appear enlarged. Impression: No active disease. Primary Diagnostic Code: No immediate attention required Primary Interpreting Staff: CHACHO TUCKER MD, Staff Physician (Toilet And Laundry Soap Supervisor) /CHACHO PRINGLE MD [facility] Encounter Notes: All associated encounter notes This section contains the clinical notes associated to the Encounter. Date/Time Encounter Note(s) Provider Source Nov 11, 2024 03:34 PM TELEHEALTH CONSULT : LOCAL TITLE: CONSULT REPORT/TELEDERMATOLOGY IMAGING REQUEST STANDARD TITLE: TELEHEALTH CONSULT DATE OF NOTE: NOV 11, 2024@15:34 ENTRY DATE: NOV 11, 2024@15:34:39 AUTHOR: CHRISTOPHER JAMES COSIGNER: URGENCY: STATUS: COMPLETED Teledermatology Consult Request The patient was educated regarding the Teledermatology process at this encounter. Comment: patient educated on telederm process and verbalizes understanding. Patient DOES consent to have images taken, viewed, and interpreted using the Teledermatology process. This consult addresses: A new condition Images were acquired: In clinic HISTORY: Prior skin history: None reported Have you had a skin cancer before? None Reported Family melanoma history: Sibling:Brother Taking new med/supplements: None reported Immunosuppression history: None reported Other significant history: None reported Chief Complaint: 3 suspicious skin lesion. PROBLEM A LOCATION(S): Head/Neck:Scalp(vertex) DURATION: About 11 months ago SYMPTOMS: Itch CHANGES: Color:darker, Size TREATMENT: No BIOPSY: No PROBLEM B: LOCATION(S): Head/Neck: Scalp (Right Mid) DURATION: About month ago SYMPTOMS: Itch CHANGES: Size TREATMENT: No BIOPSY: No PROBLEM C: LOCATION(S): Head/Neck: Scalp (Left Mid) DURATION: Recent SYMPTOMS: Itch CHANGES: Size: same TREATMENT: No BIOPSY: No PROBLEM D: LOCATION(S): Head/Neck: Under Left Eye DURATION: about 4-5 years SYMPTOMS: Itch CHANGES: Color, Size, Other: One is old and the other is recently new TREATMENT: Yes Details: Seen by [place] hse coordinator(Maria Del Rosario Corral) 2021...DX: SK.Now new one grows next to it. BIOPSY: No Other Wood Processing Machine Operator's comments: Imaged per provider's direction and facility protocol. /oscar/ CHRISTOPHER JAMES TELEHEALTH CLINICAL TECHNIAN (TCT) Signed: 11/11/2024 15:54 CHRISTOPHER JAMES [facility]
--- OUTSIDE RECORDS SUMMARY | 2024-11-15 08:38 | XMS_ITS | Encounter Summary ---
Author Name [facility] [place] Organization [facility] [place] Address [address] [place] [address] Care Team Providers Care Slot Attendant Name Role Phone FRANCO CAMPBELL Primary Care [...] PART A Nov 24, 2010 PART A [id number] ROHINI CARBAJAL CHARD PATIENT MEDICARE (WNR) MEDICARE (M) PART A Nov 24, 2010 PART A [id number] SOLOMON,ROHINI CHARD PATIENT MEDICARE (WNR) MEDICARE (M) PART A Nov 24, 2008 PART A [id number] [phone] SOLOMON,ROHINI CHARD PATIENT MEDICARE (WNR) MEDICARE (M) PART A Nov 24, 2008 PART A [id number] SOLOMONROHINI PATIENT Selected Encounter This section includes the information on record at [place] for the Encounter. Date/Time Encounter Type Encounter Description Reason Provider Source Nov 15, 2024 12:38 PM OFFICE O/P EST LOW 20 MIN DERMATOLOGY ICD-10-CM L82.1 Other seborrheic keratosis DANNY VARELA Cara Encounter Template Text not used by [place] Assessments - Encounter Diagnoses This section includes the primary and secondary diagnoses documented for the Encounter. Date/Time Primary/Secondary Diagnosis Diagnosis Name Provider Source Nov 15, 2024 12:43 PM PRIMARY Other seborrheic keratosis DANNY VARELA [facility] Plan of Treatment: Future Appointments (+ 6 months) and Future Tests (+/- 45 days) The Plan of Treatment section includes future care activities for the patient from all [place] [facility]. This section includes future appointments and future orders which are active, pending or scheduled. Future Appointments This section includes appointments that were scheduled to occur 6 months from the date of the Encounter, up to a maximum of 20 appointments. The data comes from all [place] treatment facilities. Appointment Date/Time Appointment Type Appointme nt Facility Name Dec 02, 2024 09:00 AM AM[place]ULATORY [place] [facility] [place] [facility] Dec 02, 2024 10:30 AM AMBULATORY - MEDICINE [facility] Dec 15, 2024 10:30 AM [facility] Dec 24, 2024 03:00 PM [facility] Jan 04, 2025 11:00 AM AM[facility] [place] [facility] [place] [facility] Jan 11, 2025 11:30 AM AMBULATORY - PSYCHIATRY [facility] Feb 15, 2025 10:00 AM AM[facility]UL[facility]ORY [place] [facility] [place] [facility] Mar 15, 2025 11:30 AM [facility] March 24, 2025 10:00 AM [facility] [place] [facility] April 22, 2025 02:30 PM [facility] - [facility]ICINE [facility] May 03, 2025 11:00 AM AMBULATORY PSYCHIATRY [facility] Active, Pending, and Scheduled Orders This section includes a listing of several types of active, pending, and scheduled orders, including clinic medications orders, diagnostic test orders, procedure orders and consult orders; where the start date of the order is 45 days before the date of the Encounter or 45 days after the date of theEncounter. The data comes from all [place] treatment facilities. Test Date/Time Test Type Test Details Facility Name Nov 16, 2024 12:47 PM Consult Order DERMATOLOG Y/[facility] (OUTPT) Cons Entry Table Operator's Choice [facility] Lab Results: +/- 30 days of the encounter This section includes the Chemistry and Hematology Lab Results on record with [place] for the patient. Radiology Reports and Pathology Reports are provided separately, in subsequent sections. Lab Results This section contains the Chemistry/Hematology Results that were resulted 30 days before or 30 daysafter the date of the Encounter. Date/Time Source Result Type Result - Unit Interpretation Reference Range Specimen Type Comment Nov 15, 2024 08:13 AM [facility] TSH SERUM Specimen Type: SERUM No comment entered. Ordering Provider: RAOUL MKCEON Report Released Date/Time: Nov 05, 2024 12:05 PM Reporting Lab: [address] [phone] Performing Lab: [address] [address] TSH 0.87 u[IU]/mL 0.35-5.00 Nov 15, 2024 08:13 AM [facility] VITAMIN D (25-[place]) SERUM Specimen Type : SERUM No comment entered. Ordering Provider: RAOUL MCKEON Report Released Date/Time: Nov 05, 2024 12:05 PM Reporting Lab: [address] [address] Performing Lab: [address] [address] VITAMIN D (25-[place]) 38 ng/mL 20-50 Nov 15, 2024 08:13 AM [facility] CBC BLOOD Sp ecimen Type: BLOOD No comment entered. Ordering Provider: RAOUL MCKEON Report Released Date/Time: Nov 05, 2024 12:05 PM Reporting Lab: [address] [address] Performing Lab: [address] [address] WBC 6.55 10*3/uL 4.50-11.00 RBC 5.19 10*6/uL 4.23-5.66 HGB 14.8 g/dL 12.8-17 HCT 45.2 39.2-50.4 MCV 87.1 fL 82-99 MCHC 32.7 g/dL 30.8-35.1 PLT 283 10*3/uL 140-360 RDW-CV 12.4 12.0-16.0 MCH 28.5 pg 26.2-32.6 Nov 15, 2024 08:13 AM [facility] BASIC METABOLIC PANEL (fasting) SERUM Specimen Type: SERUM No comment entered. Ordering Provider: RAOUL MCKEON Report Released Date/Time: Nov 05, 2024 12:05 PM Reporting Lab: [address] [address] Performing Lab: [address] [address] UREA NITROGEN 17 mg/dL 7-25 GLUCOSE 111 mg/dL H 65-100 SODIUM 139 mmol/L 135-145 POTASSIUM 4.3 mmol/L 3.5-5.0 CHLORIDE 105 mmol/L 100-110 CO2 27 meq/L 20-30 CREATININE, Serum 1.42 mg/dL H 0.50-1.40 eGFR(CKD-EPI 2020) 51 mL/min L >60 Nov 15, 2024 08:13 AM [facility] LIPID PANEL FASTING SERUM Specimen Ty pe: SERUM No comment entered. Ordering Provider: RAOUL MCKEON Report Released Date/Time: Nov 05, 2024 12:05 PM Reporting Lab: [address] [address] Performing Lab: [address] [address] CHOLESTEROL 148 mg/dL TRIGLYCERIDE 111 mg/dL 0-150 LDL calculated 83 mg/dL 0-129 CHOL/HDL 3.4 HDL CHOLESTEROL 43 mg/dL 40-60 Nov 15, 2024 08:13 AM [facility] LIVER FUNCTION SERUM Specimen Type: SERUM No comment entered. Ordering Provider: RAOUL MCKEON Report Released Date/Time: Nov 05, 2024 12:05 PM Reporting Lab: [address] [address] Performing Lab: [address] [address] PROTEIN,TOTAL 6.5 g/dL 6.0-8.3 ALBUMIN 3.6 g/dL 3.5-5.0 ALKALINE PHOSPHATASE 84 U/L 40-150 AST 20 U/L 5-34 ALT 21 U/L BILIRUBIN, TOTAL 0.8 mg/dL 0.2-1.2 Nov 15, 2024 08:13 AM [facility] URINALYSIS URINE S pecimen Type: URINE Comment: If Glucose = >500 and Ketones are positive, please alert the Physician. Ordering Provider: RAOUL MCKEON Report Released Date/Time: Nov 05, 2024 12:05 PM Reporting Lab: [address] [address] Performing Lab: [address] [address] UA COLOR Yellow Yellow UA APPEARANCE Clear Clear UA GLUCOSE Normal mg/dL Negative UA KETONES NEGATIVE mg/dL Negative UA BLOOD NEGATIVE mg/dL Negative UA PROTEIN NEGATIVE mg/dL Negative UA NITRITE NEGATIVE mg/dL Negative UA BILIRUBIN NEGATIVE mg/dL Negative UA SPECIFIC GRAVITY 1.019 1.016-1.022 UA pH 6.0 5.0-9.0 UA UROBILINOGEN 2 mg/dL <2.0 UA LEUKOCYTE NEGATIVE Negative Nov 15, 2024 08:13 AM [facility] HEMOGLOBIN A1C PANEL BLOOD Specimen T ype: [...] Nov 05, 2024 12:05 PM Reporting Lab: [address] [address] Performing Lab: [address] [address] HEMOGLOBIN A1C 5.9 H 4.0-5.6 Radiology Reports: +/- 30 days of the [...] the Encounter. The data comes from all [place] treatment facilities. Date/Time Radiology Report Provider Source Nov 15, 2024 01:[address] ANGIOGRAPHY CHEST: CAMACHO CARBAJAL [id number] -1945 M Exm Date: NOV 15, 2024@13:12 Req Phys: RAOUL MCKEON Loc: [facility]/OUTSIDE IMAGING NON-CNT (R Img Loc: OUTSIDE GENERAL RADIOLOGY Service: Unknown (Case [id number] COMPLETE) OUTSIDE CT ANGIOGRAPHY CHEST (RAD Detailed) CPT:41218 Reason for Study: outside images have been uploaded for continuity of care Clinical History: outside images have been uploaded for continuity of care Report Status: Electronically Filed Date Reported: NOV 15, 2024 Report: THIS EXAM WAS PERFORMED AND INTERPRETED AT AN OUTSIDE HOSPITAL Impression: THIS EXAM WAS PERFORMED AND INTERPRETED AT AN OUTSIDE HOSPITAL Primary Diagnostic Code: VERIFIED BY: / *ELECTRONICALLY FILED* [facility] Nov 15, 2024 10:24 AM CHEST (2 VIEWS): CAMACHO CARBAJAL [id number] -1945 M Exm Date: NOV 15, 2024@10:24 Req Phys: RAOUL MCKEON Loc: [facility]/SO/PACT 7 (Req'g Loc) Img Loc: [place]/BUILDING 1 Service: Unknown [place] [facility] [place] [address] (Case 14 COMPLETE) CHEST (2 VIEWS) (RAD Detailed) CPT:22373 Reason for Study: persistent cough x 3 weeks Clinical History: Covering resident, fellow, 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 There are no infiltrates. The heart silhouette does not appear enlarged. Impression: No active disease. Primary Diagnostic Code: No immediate attention required Primary Interpreting Staff: CHACHO TUCKER MD, Staff Physician (Chele) /CHACHO PRINGLE MD [place] [facility] Encounter Notes: All associated encounter notes This section contains the clinical notes associated to the Encounter. Date/Time Encounter Note(s) Provider Source Nov 15, 2024 12:38 PM TELEIMAGING REPORT : LOCAL TITLE: CONSULT-TELEDERMATOLOGY IMAGING REPORT STANDARD TITLE: TELEIMAGING REPORT DATE OF NOTE: NOV 15, 2024@12:38 ENTRY DATE: NOV 15, 2024@12:38:46 AUTHOR: DANNY VARELA COSIGNER: URGENCY: STATUS: COMPLETED HISTORY: 78-year-old man presents to have photographs taken of some lesions on his scalp and left maxillary cheek. He reports that these have been present for anywhere from 1 month to 11 months, and he also reports some associated itch. He sees a [place] physicist astrophysics already, and has been diagnosed with seborrheic keratosis OVERALL CONSULT/IMAGE QUALITY: Fully satisfactory EXAM: Castañeda, waxy, stuck on appearing papules on the scalp. On the left maxillary cheek there is a 3 mm pale, verrucoid papule IMPRESSION BASED ON IMAGES AND INFORMATION REVIEWED: PROBLEM A: Diagnosis: Seborrheic Keratosis PROBLEM B: Diagnosis: Seborrheic Keratosis PROBLEM C: Diagnosis: Seborrheic Keratosis PROBLEM D: Diagnosis: Seborrheic Keratosis vs. Wart RECOMMENDATIONS FOR REFERRING PROVIDER: PROBLEM A: Other recommendations: These are benign lesions and do not require treatment PROBLEM B: Other recommendations: These are benign lesions and do not require treatment PROBLEM C: Other recommendations: These are benign lesions and do not require treatment PROBLEM D: Liquid nitrogen cryotherapy: TIME-SENSITIVITY: No time-sensitive, urgent, emergent or life-threatening results. RECOMMENDED FOLLOW-UP (Include Clinically Indicated Date (NAMAN)): Consult to Dermatology clinic for follow up NAMAN: Routine Cumulative time of review and management: 5 minutes or more /oscar/ Danny Varela PA-C Dermatology Signed: 11/15/2024 12:44 DANNY VARELA [facility]
--- OUTSIDE RECORDS SUMMARY | 2024-12-02 05:00 | XMS_ITS | Encounter Summary ---
Author Name [facility] [place] Organization [facility] [place] Address [address] [place] [address] Care Team Providers Care Sprinkler Inspector Name Role Phone FRANCO CAMPBELL Primary Care [...] PART A Nov 24, 2010 PART A [id number] [phone] ROHINI CARBAJAL CHARD PATIENT MEDICARE (WNR) MEDICARE (M) PART A Nov 24, 2010 PART A [id number] ROHINI CARBAJAL CHARD PATIENT MEDICARE (WNR) MEDICARE (M) PART A Nov 24, 2008 PART A [id number] ROHINI CARBAJAL CHARD PATIENT MEDICARE (WNR) MEDICARE (M) PART A Nov 24, 2008 PART A [id number] [phone] SOLOMON,ROHINI TODD PATIENT Selected Encounter This section includes the information on record at [place] for the Encounter. Date/Time Encounter Type Encounter Description Reason Provider Source Dec 02, 2024 09:00 AM PSYTX W PT 60 MINUTES [facility] - IND ICD-10-CM F43.12 Post-traumatic stress disorder, chronic ABRANHUNTER Cara Encounter Template Text not used by [place] Assessments - Encounter Diagnoses This section includes the primary and secondary diagnoses documented for the Encounter. Date/Time Primary/Secondary Diagnosis Diagnosis Name Provider Source Dec 02, 2024 10:00 AM PRIMARY Post-traumatic stress disorder, HUNTER Garcia [facility] Plan of Treatment: Future Appointments (+ 6 months) and Future Tests (+/- 45 days) The Plan of Treatment section includes future care activities for the patient from all [place] [facility]. This section includes future appointments and future orders which are active, pending or scheduled. Future Appointments This section includes appointments that were scheduled to occur 6 months from the date of the Encounter, up to a maximum of 20 appointments. The data comes from all [place] treatment facilities. Appointment Date/Time Appointment Type Appointme nt Facility Name Dec 15, 2024 10:30 AM AMBULATORY - MEDICINE [facility] [place] [facility] Dec 24, 2024 03:00 PM AMBULATORY - MEDICINE [facility] Jan 04, 2025 11:00 AM [facility] Jan 11, 2025 11:30 AM AMBULATORY - PSYCHIATRY [facility] Feb 15, 2025 10:00 AM [place] [facility] [place] [facility] Mar 15, 2025 11:30 AM AMBULATORY - MEDICINE [facility] March 24, 2025 10:00 AM [facility] [place] [facility] April 22, 2025 02:30 PM [facility] May 03, 2025 11:00 AM AMBULATORY - PSYCHIATRY [facility] Jun 01, 2025 03:00 PM [facility] Active, Pending, and Scheduled Orders This section includes a listing of several types of active, pending, and scheduled orders, including clinic medications orders, diagnostic test orders, procedure orders and consult orders; where the start date of the order is 45 days before the date of the Encounter or 45 days after the date of theEncounter. The data comes from all [place] treatment facilities. Test Date/Time Test Type Test Details Facility Name Nov 16, 2024 12:47 PM Consult Order DERMATOLOG Y/[facility] (OUTPT) Cons Pull Out Operator's Choice [facility] Lab Results: +/- 30 days of the encounter This section includes the Chemistry and Hematology Lab Results on record with [place] for the patient. Radiology Reports and Pathology Reports are provided separately, in subsequent sections. Lab Results This section contains the Chemistry/Hematology Results that were resulted 30 days before or 30 daysafter the date of the Encounter. Date/Time Source Result Type Result - Unit Interpretation Reference Range Specimen Type Comment Nov 15, 2024 08:13 AM [facility] TSH SERUM Specimen Type: SERUM No comment entered. Ordering Provider: RAOUL MCKEON Report Released Date/Time: Nov 05, 2024 12:05 PM Reporting Lab: [address] [address] Performing Lab: [address] [address] TSH 0.87 u[IU]/mL 0.35-5.00 Nov 15, 2024 08:13 AM [facility] VITAMIN D (25-OH) SERUM Specimen Type : SERUM No comment entered. Ordering Provider: RAOUL MCKEON Report Released Date/Time: Nov 05, 2024 12:05 PM Reporting Lab: [address] [address] Performing Lab: [address] [address] VITAMIN D (25-OH) 38 ng/mL 20-50 Nov 15, 2024 08:13 AM [facility] CBC BLOOD Sp ecimen Type: BLOOD No comment entered. Ordering Provider: RAOUL MCKEON Report Released Date/Time: Nov 05, 2024 12:05 PM Reporting Lab: [address] [address] Performing Lab: [address] [address] WBC 6.55 10*3/uL 4.50-11.00 RBC 5.19 10*6/uL 4.23-5.66 HGB 14.8 g/dL 12.8-17 HCT 45.2 39.2-50.4 MCV 87.1 fL 82-99 MCHC 32.7 g/dL 30.8-35.1 PLT 283 10*3/uL 140-360 RDW-CV 12.4 12.0-16.0 MCH 28.5 pg 26.2-32.6 Nov 15, 2024 08:13 AM [facility] LIPID PANEL FASTING SERUM Specimen Ty pe: SERUM No comment entered. Ordering Provider: RAOUL MCKEON Report Released Date/Time: Nov 05, 2024 12:05 PM Reporting Lab: [address] [address] Performing Lab: [address] [address] CHOLESTEROL 148 mg/dL TRIGLYCERIDE 111 mg/dL 0-150 LDL calculated 83 mg/dL 0-129 CHOL/HDL 3.4 HDL CHOLESTEROL 43 mg/dL 40-60 Nov 15, 2024 08:13 AM [facility] BASIC METABOLIC PANEL (fasting) SERUM Specimen Type: SERUM No comment entered. Ordering Provider: RAOUL MCKEON Report Released Date/Time: Nov 05, 2024 12:05 PM Reporting Lab: [address] [address] Performing Lab: [address] [address] UREA NITROGEN 17 mg/dL 7-25 GLUCOSE 111 mg/dL H 65-100 SODIUM 139 mmol/L 135-145 POTASSIUM 4.3 mmol/L 3.5-5.0 CHLORIDE 105 mmol/L 100-110 CO2 27 meq/L 20-30 CREATININE, Serum 1.42 mg/dL H 0.50-1.40 eGFR(CKD-EPI 2020) 51 mL/min L >60 Nov 15, 2024 08:13 AM [facility] LIVER FUNCTION SERUM Specimen Type: SERUM No comment entered. Ordering Provider: RAOUL MCKEON Report Released Date/Time: Nov 05, 2024 12:05 PM Reporting Lab: [address] [address] Performing Lab: [address] [address] PROTEIN,TOTAL 6.5 g/dL 6.0-8.3 ALBUMIN 3.6 g/dL 3.5-5.0 ALKALINE PHOSPHATASE 84 U/L 40-150 AST 20 U/L 5-34 ALT 21 U/L BILIRUBIN, TOTAL 0.8 mg/dL 0.2-1.2 Nov 15, 2024 08:13 AM [facility] URINALYSIS URINE S pecimen Type: URINE Comment: If Glucose = >500 and Ketones are positive, please alert the Physician. Ordering Provider: RAOUL MCKEON Report Released Date/Time: Nov 05, 2024 12:05 PM Reporting Lab: [address] [address] Performing Lab: [address] [address] UA COLOR Yellow Yellow UA APPEARANCE Clear Clear UA GLUCOSE Normal mg/dL Negative UA KETONES NEGATIVE mg/dL Negative UA BLOOD NEGATIVE mg/dL Negative UA PROTEIN NEGATIVE mg/dL Negative UA NITRITE NEGATIVE mg/dL Negative UA BILIRUBIN NEGATIVE mg/dL Negative UA SPECIFIC GRAVITY 1.019 1.016-1.022 UA pH 6.0 5.0-9.0 UA UROBILINOGEN 2 mg/dL <2.0 UA LEUKOCYTE NEGATIVE Negative Nov 15, 2024 08:13 AM [facility] HEMOGLOBIN A1C PANEL BLOOD Specimen T ype: [...] Nov 05, 2024 12:05 PM Reporting Lab: [address] [address] Performing Lab: [address] [address] HEMOGLOBIN A1C 5.9 H 4.0-5.6 Social History: Smoking Status (Most current) and Tobacco Use (All prior to encounter date) This section includes the most current, and the historical, smoking and tobacco- related health factors from the [place] facility where the Encounter took place. Current Smoking Status This section includes the most current smoking, or tobacco-related health factor, from the [place] facility where the Encounter took place. Date/Time Current Smoking Status Comment Mirna ity Jul 29, 2024 11:00 AM VA-TOBACCO FORMER USER [facility] Tobacco Use History This section includes a history of the smoking, or tobacco-related health factors, that were collected on or before the date of the Encounter. The data comes from the [place] facility where the Encounter took place. Date/Time Smoking Status/Tobacco Use Comment F acility Jul 29, 2024 11:00 AM VA-TOBACCO QUIT 5 TO < 15 YRS [facility] Jun 10, 2023 03:30 PM VA-TOBACCO FORMER USER [facility] Jun 10, 2023 03:30 PM VA-TOBACCO QUIT 1 TO < 5 YRS [facility] Jul 09, 2022 03:30 PM VA-TOBACCO FORMER USER [facility] Jul 09, 2022 03:30 PM VA-TOBACCO QUIT 15 YRS OR MORE [facility] Jun 08, 2021 09:00 AM VA-TOBACCO FORMER USER [facility] Jun 08, 2021 09:00 AM VA-TOBACCO QUIT < 1 YEAR [facility] Jun 20, 2020 09:38 AM VA-TOBACCO FORMER USER [facility] Jun 20, 2020 09:38 AM VA-TOBACCO QUIT 5 TO < 15 YRS [facility] Feb 10, 2019 06:20 PM VA-TOBACCO DOESNT USE WI 30 MIN WAKEUP [facility] Feb 10, 2019 06:20 PM VA-TOBACCO USE 30 YEARS OR MORE [facility] Feb 10, 2019 06:20 PM VA-TOBACCO USE ADVICE [facility] Feb 10, 2019 06:20 PM VA-TOBACCO USE HEALTH PRACTICE MANAGER NO [facility] Feb 10, 2019 06:20 PM VA-TOBACCO USE MED NO [facility] Feb 10, 2019 06:20 PM VA-TOBACCO USER SOME DAYS [facility] Mar 05, 2018 08:47 AM QUIT TOBACCO USE 1 -7 YEARS AGO [facility] Oct 07, 2017 02:29 PM QUIT TOBACCO USE IN PAST YEAR [facility] March 27, 2017 02:09 PM QUIT TOBACCO USE IN PAST Y EAR cigars [facility] Dec 04, 2016 02:35 PM CURRENT SMOKER SPRI [facility] Mar 19, 2016 10:33 AM V1-PT NOT INTEREST ED IN QUIT TOBACCO USE [facility] Feb 07, 2016 09:06 AM CURRENT SMOKER States he smokes cigars every couple of days [facility] Dec 06, 2014 09:39 AM CURRENT SMOKER MAURA [facility] Oct 29, 2013 08:14 AM V1-PT DECLINES REF TO TOBACCO CESS [facility] Oct 29, 2013 08:14 AM V1-PT READY TO ROSANGELA T TOBACCO USE [facility] May 20, 2013 09:56 AM QUIT TOBACCO USE IN PAST YEAR [facility] Nov 12, 2012 08:56 AM V1-PT DECLINES REF TO TOBACCO CESS [facility] Nov 12, 2012 08:56 AM V1-PT DECLINES TOB ACCO CESSATION [facility] Nov 12, 2012 08:56 AM V1-PT THINKING ABO UT QUIT TOBACCO USE [facility] Aug 12, 2012 08:38 AM CURRENT SMOKER 4-5cigars/d [facility] Aug 05, 2011 11:00 AM CURRENT SMOKER Pt. smikes 1 cigar a day! [facility] Aug 05, 2011 11:00 AM V1-PT DECLINES REF TO TOBACCO CESS [facility] Aug 05, 2011 11:00 AM V1-PT DECLINES TOB ACCO CESSATION [facility] Aug 05, 2011 11:00 AM V1-PT THINKING ABO UT QUIT TOBACCO USE [facility] Sep 27, 2010 08:35 AM V1-PT DECLINES REF TO TOBACCO CESS [facility] Sep 27, 2010 08:35 AM V1-PT READY TO ROSANGELA T TOBACCO USE [facility] April 03, 2010 02:39 PM QUIT TOBACCO USE IN PAST YEAR [facility] Radiology Reports: +/- 30 days of the [...] the Encounter. The data comes from all [place] treatment facilities. Date/Time Radiology Report Provider Source Nov 15, 2024 01:[address] ANGIOGRAPHY CHEST: CAMACHO CARBAJAL [id number] -[id number] M Exm Date: NOV 15, 2024@13:12 Req Phys: RAOUL MCKEON Loc: [facility]/OUTSIDE IMAGING NON-CNT (R Img Loc: OUTSIDE GENERAL RADIOLOGY Service: Unknown (Case [id number] COMPLETE) OUTSIDE CT ANGIOGRAPHY CHEST (RAD Detailed) CPT:77843 Reason for Study: outside images have been uploaded for continuity of care Clinical History: outside images have been uploaded for continuity of care Report Status: Electronically Filed Date Reported: NOV 15, 2024 Report: THIS EXAM WAS PERFORMED AND INTERPRETED AT AN OUTSIDE HOSPITAL Impression: THIS EXAM WAS PERFORMED AND INTERPRETED AT AN OUTSIDE HOSPITAL Primary Diagnostic Code: VERIFIED BY: / *ELECTRONICALLY FILED* [facility] Nov 15, 2024 10:24 AM CHEST (2 VIEWS): CAMACHO CARBAJAL [id number] -[id number] M Exm Date: NOV 15, 2024@10:24 Req Phys: RAOUL MCKEON Loc: [facility]/SO/PACT 7 (Req'g Loc) Img Loc: [facility] 1 Service: [place] [address] (Case 14 COMPLETE) CHEST (2 VIEWS) (RAD Detailed) CPT:47156 Reason for Study: persistent cough x 3 weeks Clinical History: Covering resident, fellow, VIDEO INTERN or attending: Raoul mckeon NP [place] Pager: [phone] Backup pager: History: Report Status: Verified Date Reported: NOV 15, 2024 Date Verified: NOV 15, 2024 Water Treatment Plant Mechanic E-Sig:/ES/CHACHO TUCKER MD Report: Chest x-ray: 2 views Lung volumes are low. There are no infiltrates. The heart silhouette does not appear enlarged. Impression: No active disease. Primary Diagnostic Code: No immediate attention required Primary Interpreting Staff: CHACHO TUCKER MD, Staff Physician (Water Treatment Plant Mechanic) /CHACHO PRINGLE MD [facility] Encounter Notes: All associated encounter notes This section contains the clinical notes associated to the Encounter. Date/Time Encounter Note(s) Provider Source Dec 02, 2024 09:52 AM SOCIAL WORK NOTE: LOCAL TITLE: SOCIAL WORK NOTE STANDARD TITLE: SOCIAL WORK NOTE DATE OF NOTE: DEC 02, 2024@09:52 ENTRY DATE: DEC 02, 2024@09:52:59 AUTHOR: HUNTER OSULLIVAN EXP COSIGNER: PAULGENTRYANDREI URGENCY: STATUS: COMPLETED INFORMED CONSENT REVIEWED: At beginning of session reviewed rights and limits of confidentiality, mandatory reporting situations, duty to warn and protect, [place] Warning, (if treatment team finds patient to be an acute danger to himself or others, that this information could be relayed to a court of law and presented to a beauty culture teacher), and DOD access for active duty service members. Provided Suicide Prevention Hotline number, and other contact numbers as necessary. VISIT DURATION 60 minutes DIAGNOSES: PTSD, chronic [employer] STATEMENT OF GOALS/CONCERNS: I've been seeing a therapist at the [facility] for years for my PTSD but [...] though I liked my therapist at the [facility], it got to where he never asked me about my symptoms and we never worked on them, but I've been getting worse all the while. SESSION FOCUS: [place] inquired about EMDR therapy for processing trauma memories from his experiences in [place]. Trucking Contractor provided some psychoeducation on this modality and offered an opportunity to try processing a recent experiece of low distress to give him an idea of the process. processed a recent situation in which he was unfairly terminated by [employer]. After processing, stated that he would like to continue this type of therapy. Will begin protocol next session. INTERVENTIONS: Psychotherapeutic Interventions: Validating, active listening, reflecting Psychoeducation reviewed: EMDR ASSESSMENT: BRIEF ASSESSMENT OF MENTAL STATUS: 1. [...] Denies current suicidal/homicidal ideation PLAN FOR FOLLOW-UP: Begin orientation, history, target list PCT Psychotherapy Tracking Today's psychotherapy session was part of a standardized episode of Eye Movement Desensitization and Reprocessing (EMDR) This case is supervised by LOUIS Pardo. Diagnosis, treatment plan, and response to care are reviewed in standard 1-hour, or more, weekly individual supervision /oscar/ HUNTER OSULLIVAN MANAGER MOTOR Signed: 12/02/2024 10:00 /oscar/ LOUIS PARDO Occ Therapy Asst Mental Health Cosigned: 12/02/2024 10:32 HUNTER OSULLIVAN
--- OUTSIDE RECORDS SUMMARY | 2024-12-02 06:30 | XMS_ITS | Encounter Summary ---
Author Name [facility] ([place]) Organization [facility] Address [address] [place] [address] Care Team Providers Care Head Of Measurement & Insights Name Role Phone FRANCO CAMPBELL Primary Care [...] PART A Nov 24, 2010 PART A [id number] ROHINI CARBAJAL CHARD PATIENT MEDICARE (WNR) MEDICARE (M) PART A Nov 24, 2010 PART A [id number] ROHINI CARBAJAL CHARD PATIENT MEDICARE (WNR) MEDICARE (M) PART A Nov 24, 2008 PART A [id number] [phone] SOLOMON,RI CHARD PATIENT MEDICARE (WNR) MEDICARE (M) PART A Nov 24, 2008 PART A [id number] [phone] SOLOMON,ROHINI TODD PATIENT Selected Encounter This section includes the information on record at DC for the Encounter. Date/Time Encounter Type Encounter Description Reason Provider Source Dec 02, 2024 10:30 AM SYNCH AUDIO-VIDEO EST MOD 30 PRIMARY CARE/MEDICINE ICD-10-CM R73.03 Prediabetes RAOUL MCKEON Cara Encounter Template Text not used by DC Assessments - Encounter Diagnoses This section includes the primary and secondary diagnoses documented for the Encounter. Date/Time Primary/Secondary Diagnosis Diagnosis Name Provider Source Dec 02, 2024 02:47 PM PRIMARY Prediabetes RAOUL MCKEON [facility] Dec 02, 2024 02:47 PM SECONDARY Abdominal aortic aneurysm, without rupture, unspecified RAOUL MCKEON PRAY Dec 02, 2024 02:47 PM SECONDARY Chronic kidney disease, stage 3 unspecified RAOUL MCKEON PR[facility] Dec 02, 2024 02:47 PM SECONDARY Hyperlipidemia, unspecified RAOUL MCKEON PRAY Dec 02, 2024 02:47 PM SECONDARY Intervertebral disc disorders w radiculopathy, lumbar region RAOUL MCKEON PRAY Dec 02, 2024 02:47 PM SECONDARY Panlobular emphysema RAOUL MCKEON PR[facility] Dec 02, 2024 02:47 PM SECONDARY Personal history of nicotine dependence RAOUL MCKEON PR[facility] Dec 02, 2024 02:47 PM SECONDARY Solitary pulmonary nodule RAOUL MCKEON [facility] Dec 02, 2024 02:47 PM SECONDARY Thoracic aortic aneurysm, without rupture, unspecified RAOUL MCKEON PR[facility] Plan of Treatment: Future Appointments (+ 6 months) and Future Tests (+/- 45 days) The Plan of Treatment section includes future care activities for the patient from all [place] treatmentfacilities. This section includes future appointments and future orders which are active, pending or scheduled. Future Appointments This section includes appointments that were scheduled to occur 6 months from the date of the Encounter, up to a maximum of 20 appointments. The data comes from all [place] treatment facilities. Appointment Date/Time Appointment Type Appointme nt Facility Name Dec 15, 2024 10:30 AM AMBULATORY - MEDICINE DC C NTRL JOSE CAMARILLO [facility] Dec 24, 2024 03:00 PM AMBULATORY - MEDICINE [facility] Jan 04, 2025 11:00 AM AMBULATORY - PSYCHIATRY [facility] Jan 11, 2025 11:30 AM AMBULATORY - PSYCHIATRY [facility] Feb 15, 2025 10:00 AM [facility] Mar 15, 2025 11:30 AM AMBULATORY - MEDICINE [facility] March 24, 2025 10:00 AM [facility] April 22, 2025 02:30 PM AMBULATORY - MEDICINE [facility] May 03, 2025 11:00 AM AMBULATORY - PSYCHIATRY [facility] Jun 01, 2025 03:00 PM AMBULATORY - RE[facility]AB [facility] Active, Pending, and Scheduled Orders This section includes a listing of several types of active, pending, and scheduled orders, including clinic medications orders, diagnostic test orders, procedure orders and consult orders; where the start date of the order is 45 days before the date of the Encounter or 45 days after the date of theEncounter. The data comes from all [place] treatment facilities. Test Date/Time Test Type Test Details Facility Name Nov 16, 2024 12:47 PM Consult Order DERMATOLOG Y/NHM (OUTPT) Cons [employer] Officer's Choice [facility] Lab Results: +/- 30 days of the encounter This section includes the Chemistry and Hematology Lab Results on record with DC for the patient. Radiology Reports and Pathology Reports are provided separately, in subsequent sections. Lab Results This section contains the Chemistry/Hematology Results that were resulted 30 days before or 30 daysafter the date of the Encounter. Date/Time Source Result Type Result - Unit Interpretation Reference Range Specimen Type Comment Nov 15, 2024 08:13 AM [facility] TSH SERUM Specimen Type: SERUM No comment entered. Ordering Provider: RAOUL MCKEON Report Released Date/Time: Nov 05, 2024 12:05 PM Reporting Lab: [facility] [address] [address] Performing Lab: [facility] [address] [address] TSH 0.87 u[IU]/mL 0.35-5.00 Nov 15, 2024 08:13 AM [facility] VITAMIN D (25-OH) SERUM Specimen Type : SERUM No comment entered. Ordering Provider: RAOUL MCKEON Report Released Date/Time: Nov 05, 2024 12:05 PM Reporting Lab: [address] [address] Performing Lab: [address] [address] VITAMIN D (25-OH) 38 ng/mL 20-50 Nov 15, 2024 08:13 AM [facility] LIVER FUNCTION SERUM Specimen Type: SERUM No comment entered. Ordering Provider: RAOUL MCKEON Report Released Date/Time: Nov 05, 2024 12:05 PM Reporting Lab: [address] [address] Performing Lab: [address] [address] PROTEIN,TOTAL 6.5 g/dL 6.0-8.3 ALBUMIN 3.6 g/dL 3.5-5.0 ALKALINE PHOSPHATASE 84 U/L 40-150 AST 20 U/L 5-34 ALT 21 U/L BILIRUBIN, TOTAL 0.8 mg/dL 0.2-1.2 Nov 15, 2024 08:13 AM [facility] CBC BLOOD Sp ecimen Type: BLOOD No comment entered. Ordering Provider: RAOUL MCKEON Report Released Date/Time: Nov 05, 2024 12:05 PM Reporting Lab: [address] [address] Performing Lab: [address] [address] WBC 6.55 10*3/uL 4.50-11.00 RBC 5.19 10*6/uL 4.23-5.66 HGB 14.8 g/dL 12.8-17 HCT 45.2 39.2-50.4 MCV 87.1 fL 82-99 MCHC 32.7 g/dL 30.8-35.1 PLT 283 10*3/uL 140-360 RDW-CV 12.4 12.0-16.0 MCH 28.5 pg 26.2-32.6 Nov 15, 2024 08:13 AM [facility] BASIC METABOLIC PANEL (fasting) SERUM Specimen Type: SERUM No comment entered. Ordering Provider: RAOUL MCKEON Report Released Date/Time: Nov 05, 2024 12:05 PM Reporting Lab: [address] [address] Performing Lab: [address] [address] UREA NITROGEN 17 mg/dL 7-25 GLUCOSE 111 mg/dL H 65-100 SODIUM 139 mmol/L 135-145 POTASSIUM 4.3 mmol/L 3.5-5.0 CHLORIDE 105 mmol/L 100-110 CO2 27 meq/L 20-30 CREATININE, Serum 1.42 mg/dL H 0.50-1.40 eGFR(CKD-EPI 2020) 51 mL/min L >60 Nov 15, 2024 08:13 AM [facility] URINALYSIS URINE S pecimen Type: URINE Comment: If Glucose = >500 and Ketones are positive, please alert the Physician. Ordering Provider: RAOUL MCKEON Report Released Date/Time: Nov 05, 2024 12:05 PM Reporting Lab: [address] [address] Performing Lab: [address] [address] UA COLOR Yellow Yellow UA APPEARANCE Clear Clear UA GLUCOSE Normal mg/dL Negative UA KETONES NEGATIVE mg/dL Negative UA BLOOD NEGATIVE mg/dL Negative UA PROTEIN NEGATIVE mg/dL Negative UA NITRITE NEGATIVE mg/dL Negative UA BILIRUBIN NEGATIVE mg/dL Negative UA SPECIFIC GRAVITY 1.019 1.016-1.022 UA pH 6.0 5.0-9.0 UA UROBILINOGEN 2 mg/dL <2.0 UA LEUKOCYTE NEGATIVE Negative Nov 15, 2024 08:13 AM PRAY LIPID PANEL FASTING SERUM Specimen Ty pe: SERUM No comment entered. Ordering Provider: RAOUL MCKEON Report Released Date/Time: Nov 05, 2024 12:05 PM Reporting Lab: [address] [address] Performing Lab: [address] [address] CHOLESTEROL 148 mg/dL TRIGLYCERIDE 111 mg/dL 0-150 LDL calculated 83 mg/dL 0-129 CHOL/HDL 3.4 HDL CHOLESTEROL 43 mg/dL 40-60 Nov 15, 2024 08:13 AM [facility] HEMOGLOBIN A1C PANEL BLOOD Specimen T ype: [...] PM Reporting Lab: [facility] [address] [address] Performing Lab: [facility] [address] [address] HEMOGLOBIN A1C 5.9 H 4.0-5.6 Social History: Smoking Status (Most current) and Tobacco Use (All prior to encounter date) This section includes the most current, and the historical, smoking and tobacco- related health factors from the [place] facility where the Encounter took place. Current Smoking Status This section includes the most current smoking, or tobacco-related health factor, from the [place] facility where the Encounter took place. Date/Time Current Smoking Status Comment Facil ity Jul 29, 2024 11:00 AM VA-TOBACCO FORMER USER [facility] Tobacco Use History This section includes a history of the smoking, or tobacco-related health factors, that were collected on or before the date of the Encounter. The data comes from the [place] facility where the Encounter took place. Date/Time Smoking Status/Tobacco Use Comment F acility Jul 29, 2024 11:00 AM VA-TOBACCO QUIT 5 TO < 15 YRS [facility] Jun 10, 2023 03:30 PM VA-TOBACCO FORMER USER [facility] Jun 10, 2023 03:30 PM VA-TOBACCO QUIT 1 TO < 5 YRS [facility] Jul 09, 2022 03:30 PM VA-TOBACCO FORMER USER [facility] Jul 09, 2022 03:30 PM VA-TOBACCO QUIT 15 YRS OR MORE [facility] Jun 08, 2021 09:00 AM VA-TOBACCO FORMER USER [facility] Jun 08, 2021 09:00 AM VA-TOBACCO QUIT < 1 YEAR [facility] Jun 20, 2020 09:38 AM VA-TOBACCO FORMER USER [facility] Jun 20, 2020 09:38 AM VA-TOBACCO QUIT 5 TO < 15 YRS [facility] Feb 10, 2019 06:20 PM VA-TOBACCO DOESNT USE WI 30 MIN WAKEUP [facility] Feb 10, 2019 06:20 PM VA-TOBACCO USE 30 YEARS OR MORE [facility] Feb 10, 2019 06:20 PM VA-TOBACCO USE ADVICE [facility] Feb 10, 2019 06:20 PM VA-TOBACCO USE [employer] NO [facility] Feb 10, 2019 06:20 PM VA-TOBACCO USE MED NO [facility] Feb 10, 2019 06:20 PM VA-TOBACCO USER SOME DAYS [facility] Mar 05, 2018 08:47 AM QUIT TOBACCO USE 1 -7 YEARS AGO [facility] Oct 07, 2017 02:29 PM QUIT TOBACCO USE IN PAST YEAR [facility] March 27, 2017 02:09 PM QUIT TOBACCO USE IN PAST Y EAR cigars [facility] Dec 04, 2016 02:35 PM [facility] Mar 19, 2016 10:33 AM V1-PT NOT INTEREST ED IN QUIT TOBACCO USE [facility] Feb 07, 2016 09:06 AM CURRENT SMOKER States he smokes cigars every couple of days [facility] Dec 06, 2014 09:39 AM CURRENT SMOKER [facility] Oct 29, 2013 08:14 AM V1-PT DECLINES REF TO TOBACCO CESS [facility] Oct 29, 2013 08:14 AM V1-PT READY TO ROSANGELA T TOBACCO USE [facility] May 20, 2013 09:56 AM QUIT TOBACCO USE IN PAST YEAR [facility] Nov 12, 2012 08:56 AM V1-PT DECLINES REF TO TOBACCO CESS [facility] Nov 12, 2012 08:56 AM V1-PT DECLINES TOB ACCO CESSATION [facility] Nov 12, 2012 08:56 AM V1-PT THINKING ABO UT QUIT TOBACCO USE [facility] Aug 12, 2012 08:38 AM CURRENT SMOKER 4-5cigars/d [facility] Aug 05, 2011 11:00 AM CURRENT SMOKER Pt. smikes 1 cigar a day! [facility] Aug 05, 2011 11:00 AM V1-PT DECLINES REF TO TOBACCO CESS [facility] Aug 05, 2011 11:00 AM V1-PT DECLINES TOB ACCO CESSATION [facility] Aug 05, 2011 11:00 AM V1-PT THINKING ABO UT QUIT TOBACCO USE [facility] Sep 27, 2010 08:35 AM V1-PT DECLINES REF TO TOBACCO CESS [facility] Sep 27, 2010 08:35 AM V1-PT READY TO ROSANGELA T TOBACCO USE [facility] April 03, 2010 02:39 PM QUIT TOBACCO USE IN PAST YEAR [facility] Radiology Reports: +/- 30 days of the [...] the Encounter. The data comes from all [place] treatment facilities. Date/Time Radiology Report Provider Source Nov 15, 2024 01:[address] ANGIOGRAPHY CHEST: CAMACHO CARBAJAL [id number] -1945 M Exm Date: NOV 15, 2024@13:12 Req Phys: RAOUL MCKEON Loc: [facility]/OUTSIDE IMAGING NON-CNT (R Img Loc: OUTSIDE GENERAL RADIOLOGY Service: Unknown (Case [id number] COMPLETE) OUTSIDE CT ANGIOGRAPHY CHEST (RAD Detailed) CPT:86296 Reason for Study: outside images have been [...] 10:24 AM CHEST (2 VIEWS): CAMACHO CARBAJAL [id number] -1945 M Exm Date: NOV 15, 2024@10:24 Req Phys: RAOUL MCKEON Loc: CWM/SO/PACT 7 (Req'g Loc) Img Loc: [place]/BUILDING 1 Service: [place] [address] (Case 14 COMPLETE) CHEST (2 VIEWS) (RAD Detailed) CPT:44171 Reason for Study: persistent cough x 3 weeks Clinical History: Covering resident, fellow, LEATHER SCRAPER or attending: Raoul mckeon NP DC Pager: [phone] Backup pager: History: Report Status: Verified Date Reported: NOV 15, 2024 Date Verified: NOV 15, 2024 Fish [employer]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 There are no infiltrates. The heart silhouette does not appear enlarged. Impression: No active disease. Primary Diagnostic Code: No immediate attention required Primary Interpreting Staff: CHACHO TUCKER MD, Staff Physician (Chele) /CHACHO PRINGLE MD [facility] Encounter Notes: All associated encounter notes This section contains the clinical notes associated to the Encounter. Date/Time Encounter Note(s) Provider Source Dec 02, 2024 10:20 AM PRIMARY CARE NURSE PRACTITIONER OUTPATIENT NOTE: LOCAL TITLE: NURSE PRACTITIONER OUTPATIENT NOTE STANDARD TITLE: PRIMARY CARE NURSE PRACTITIONER OUTPATIENT NOTE DATE OF NOTE: DEC 02, 2024@10:20 ENTRY DATE: DEC 02, 2024@10:20:45 AUTHOR: RAOUL MCKEON EXP COSIGNER: URGENCY: STATUS: COMPLETED PRIMARY CARE VISIT CAMACHO CARBAJAL, is a 78 y/o WHITE MALE Nathalie who presents today at the [facility]. TYPE OF VISIT: Video HPI: COPD - seems to be coughing more than usual, nonproductive. Denies SOB, MERCADO. former smoker LDCT 07/29/24 wnl Not on Rx thoracic and abdominal aortic aneurysms - AAA is increasing in size. Followed by thoracic surgery, has appt 12/14 to discuss surgery HLD - lipids wnl, on statin CKD stage 3 - GFR 51; was 54 on 07/15/24 prediabetes - A1c 5.9; was 5.9 on 07/15/24. back pain has been severe lately - gets injections [id number] and is due. Has appt with Ortho next week. Recent labs reviewed and all medications were reconciled during this visit. HEALTHCARE PROVIDERS: see problem list HISTORY: PERIOD OF SERVICE - [employer] FROM Sep TO Nov COMBAT SERVICE INDICATED: No VITAL SIGNS: Temperature 97.9 F [36.6 C] (11/05/2024 11:44) Blood Pressure 109/72 (11/05/2024 11:44) Pulse 73 (11/05/2024 11:44) Respiration 18 (11/05/2024 11:44) Pain 0 (04/16/2024 14:14) BMI BMI: 33.3 Weight 206 lb [93.44 kg] (11/05/2024 11:44) Pulse Oximetry 97% (11/05/2024 11:44) REVIEW OF SYSTEMS: CONSTITUTIONAL: No fevers, chills, unexpected weight changes. CARDIOVASCULAR: No chest pain, palpitations or peripheral edema. RESPIRATORY: No SOB, sputum, wheeze. INcrease in LEATHER SCRAPER cough. GASTROINTESTINAL: Denies abdominal pain, N/V/D/C. No melena or hematochezia. MUSCULOSKELETAL: severe low back pain PHYSICAL EXAMINATION: General: Well-appearing Nathalie in no obvious distress. Mental Status: Alert and oriented x 2-3 Lungs: respirations easy and unlabored Psych: Normal mood and affect. Normal judgment. Cooperative with exam, follows commands. ALLERGIES: Patient has answered [facility] [employer] - see end of note PREVENTIVE MEDICINE GOALS Info Only: [facility] Cap[facility] DUE NOW Home Telehealth (CCHT) Referral Jul 29 Mental Health Treatment Plan DUE NOW Medication Reconciliation DUE NOW (Optional) Whole Health Documentation DUE NOW ASSESSMENT/PLAN: Active problems - Computerized Problem List is the source for the followin. Prediabetes - a1c 5.9, stable without Rx. Recommend low carb diet. Recheck 6 months. 2. CKD stage 3 - GFR 51, stable. Monitor labs, risk vs benefit of nephrotoxic medications. 3. Emphysema of lung - former smoker. + LEATHER SCRAPER cough, no MERCADO. Does not require Rx 4. Former smoker 5. Solitary nodule of lung - normal LDCT 07/29/24 6. Radiculopathy due to lumbar intervertebral disc disorder - followed by [facility], has injection scheduled for next week 7. Thoracic aortic aneurysm without rupture (SNOMED CT [id number]) - followed by vascular surgery, has appt 12/14/24 to discuss surgical intervention. 8. Abdominal aortic aneurysm - see above. 9. Hyperlipidemia (SNOMED CT 06172225) - lipids wnl. Continue statin therapy. FOLLOW UP: Return to clinic as noted below and/or sooner PRN UPCOMING APPOINTMENTS: 12/02/2024 10:30 CWM/SO/VVC/PACT 7 12/15/2024 10:30 NHM/OPTOMETRY/SUE/ 12/24/2024 15:00 CWM/SO/PODIATRY/FEMI 01/04/2025 11:00 CWM/SO/MHC/ABRAN MONIQUE 01/11/2025 11:30 SPOPC/MHC/OSMAN 01/27/2025 11:30 CWM/NO/CAT SCAN No barriers noted; patient understands and agrees to current treatment plan. If patient has any questions, concerns or changes in current health status he/she will call or come [facility] to the [facility]. HM: Info Only: [facility] Cap[facility]: /es/ OFELIA DAVIES CERTIFIED NURSE PRACTITIONER Signed: 12/02/2024 14:47 RAOUL MCKEON [facility]
--- OUTSIDE RECORDS SUMMARY | 2024-12-15 06:30 | XMS_ITS | Encounter Summary ---
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 Date/Time Encounter Type Encounter Description Reason Provider Source Dec 15, 2024 10:30 AM COMPRE OPH EXAM EST PT 1/> OPTOMETRY ICD-10-CM H25.813 Combined forms of age-related cataract, bilateral SUE,RENAE J IHE Encounter Template Text not used by [place] Assessments - Encounter Diagnoses This section includes the primary and secondary diagnoses documented for the Encounter. Date/Time Primary/Secondary Diagnosis Diagnosis Name Provider Source Dec 15, 2024 11:40 AM PRIMARY Combined forms of age-related cataract, bilateral SUE,RENAE J [place] [facility] Dec 15, 2024 11:40 AM SECONDARY Dry eye syndrome of bilateral lacrimal glands RENAE SUE J [place] [facility] [place] [facility] Dec 15, 2024 11:40 AM SECONDARY Presby[facility] Plan of Treatment: Future Appointments (+ 6 months) and Future Tests (+/- 45 days) The Plan of Treatment section includes future care activities for the patient from all [place] [facility]. This section includes future appointments and future orders which are active, pending or scheduled. Future Appointments This section includes appointments that were scheduled to occur 6 months from the date of the Encounter, up to a maximum of 20 appointments. The data comes from all [place] treatment facilities. Appointment Date/Time Appointment Type Appointme nt Facility Name Dec 24, 2024 03:00 PM AMBULATORY - MEDICINE [facility] Jan 04, 2025 11:00 AM AM[place] [facility] [place] [facility] Jan 11, 2025 11:30 AM AMBULATORY - PSYCHIATRY [facility] Feb 15, 2025 10:00 AM AM[place] [facility] [place] [facility] Mar 15, 2025 11:30 AM AMBULATORY - MEDICINE [facility] March 24, 2025 10:00 AM AM[place] [facility] [place] [facility] April 22, 2025 02:30 PM AMBULATORY - MEDICINE [facility] May 03, 2025 11:00 AM AMBULATORY - PSYCHIATRY [facility] Jun 01, 2025 03:00 PM AM[place]UL[place] [facility] Jun 08, 2025 08:00 AM AMBULATORY - MEDICINE [facility] Active, Pending, and Scheduled Orders This section includes a listing of several types of active, pending, and scheduled orders, including clinic medications orders, diagnostic test orders, procedure orders and consult orders; where the start date of the order is 45 days before the date of the Encounter or 45 days after the date of theEncounter. The data comes from all [place] treatment [facility]. Test Date/Time Test Type Test Details Facility Name Nov 16, 2024 12:47 PM Consult Order DERMATOLOG Y/[facility] (OUTPT) Cons Traffic Law Attorney's Choice [facility] Social History: Smoking Status (Most current) [...] Date/Time Current Smoking Status Comment Facil ity May 26, 2012 03:48 PM V1-PT DECLINES TOB ACCO CESSATION MEDS [facility] Tobacco Use History This section includes a history of the smoking, or tobacco-related health factors, that were collected on or before the date of the Encounter. The data comes from the [place] facility where the Encounter took place. Date/Time Smoking Status/Tobacco Use Comment F acility May 26, 2012 03:48 PM V1-PT NOT INTEREST ED IN QUIT TOBACCO USE [facility] Radiology Reports: +/- 30 days of the [...] PM OUTSIDE CT ANGIOGRAPHY CHEST: CAMACHO CARBAJAL [id number] -1945 M Exm Date: NOV 15, 2024@13:12 Req Phys: RAOUL MCKEON Loc: [facility]/OUTSIDE IMAGING NON-CNT (R Img Loc: OUTSIDE GENERAL RADIOLOGY Service: Unknown (Case [id number] COMPLETE) OUTSIDE CT ANGIOGRAPHY CHEST (RAD Detailed) CPT:35711 Reason for Study: outside images have been uploaded for continuity of care Clinical History: outside images have been uploaded for continuity of care Report Status: Electronically Filed Date Reported: NOV 15, 2024 Report: THIS EXAM WAS PERFORMED AND INTERPRETED AT AN OUTSIDE HOSPITAL Impression: THIS EXAM WAS PERFORMED AND INTERPRETED AT AN OUTSIDE HOSPITAL Primary Diagnostic Code: VERIFIED BY: / *ELECTRONICALLY FILED* [facility] Nov 15, 2024 10:24 AM CHEST (2 VIEWS): CAMACHO CARBAJAL [id number] -1945 M Exm Date: NOV 15, 2024@10:24 Req Phys: RAOUL MCKEON Loc: C[facility]/SO/PACT 7 (Req'g Loc) Img Loc: [place]/BUILDING 1 Service: [place] [address] (Case 14 COMPLETE) CHEST (2 VIEWS) (RAD Detailed) CPT:07747 Reason for Study: persistent cough x 3 weeks Clinical History: Covering resident, fellow, HEALTH INFORMATION MANAGER or attending: Raoul mckeon NP [place] Pager: [phone] Backup pager: History: Report Status: Verified Date Reported: NOV 15, 2024 Date Verified: NOV 15, 2024 Toy Consultant E-Sig:/ES/CHACHO TUCKER MD Report: Chest x-ray: 2 views Lung volumes are low. There are no infiltrates. The heart silhouette does not appear enlarged. Impression: No active disease. Primary Diagnostic Code: No immediate attention required Primary Interpreting Staff: CHACHO TUCKER MD, Staff Physician (Toy Consultant) /CHACHO PRINGLE MD [facility] Encounter Notes: All associated encounter notes This section contains the clinical notes associated to the Encounter. Date/Time Encounter Note(s) Provider Source Dec 15, 2024 10:57 AM OPTOMETRY NOTE: LOCAL TITLE: OPTOMETRY NOTE STANDARD TITLE: OPTOMETRY NOTE DATE OF NOTE: DEC 15, 2024@10:57 ENTRY DATE: DEC 15, 2024@10:57:52 AUTHOR: RENAE SUE COSIGNER: URGENCY: STATUS: COMPLETED Eye Examination for: CAMACHO CARBAJAL, 78 year old WHITE MALE MHx: Code Description R73.03 Prediabetes ([facility] 663960401) N18.30 CKD stage 3 ([facility] [id number]) R69. Bilateral hearing loss ([facility] 18931401) J43.1 Emphysema of lung ([facility] 60403136) Z87.891 Former smoker ([facility] 8357141) M51.16 Radiculopathy due to lumbar intervertebral disc disorder ([facility] [id number]) R69. Providers (ICD-10-CM R69.) R69. History of right total knee replacement ([facility] [id number]) R91.1 Solitary nodule of lung ([facility] 252152360) G47.33 Obstructive sleep apnea ([facility] 68850673) I71.20 Thoracic aortic aneurysm without rupture ([facility] 38711312) G31.84 Mild cognitive impairment ([facility] 641721818) I71.40 Abdominal aortic aneurysm ([facility] 054968392) E66.9 Obesity ([facility] 017570211) N40.0 Benign prostatic hypertrophy ([facility] 267201000) G25.81 Restless legs syndrome ([facility] 39396587) K59.00 Constipation ([facility] 78854525) M79.2 Peripheral neuropathic pain ([facility] [id number]) K21.9 Gastroesophageal reflux disease ([facility] 812696932) F33.1 Depression ([facility] 06902703) R69. Colonoscopy Screening (ICD-10-CM R69.) E78.5 Hyperlipidemia ([facility] 22063674) E03.9 Hypothyroidism ([facility] 28038558) F43.12 Posttraumatic stress disorder ([facility] 57959184) SYSTEMIC MEDICATIONS/OCULAR MEDICATIONS: Active Outpatient Medications (including Supplies): Active Outpatient Medications Status 1) DEPEND UNDERWEAR,MAXIMUM,MEN LARGE USE 1 BRIEF DIRECTED ACTIVE FIVE TIMES A DAY 2) DM 10/GUAIFENESN 100MG/5ML (AF & SF) LIQ TAKE 10 MLS BY ACTIVE MOUTH EVERY 6 HOURS NEEDED Indication: FOR COUGH 3) DULOXETINE HCL 60MG EC CAP TAKE ONE CAPSULE BY MOUTH ONCE ACTIVE (S) DAILY Indication: FOR MAJOR DEPRESSIVE DISORDER 4) GABAPENTIN 100MG CAP TAKE ONE CAPSULE BY MOUTH EVERY MORNING ACTIVE AND TAKE ONE CAPSULE AT BEDTIME AND TAKE ONE CAPSULE AT NOON NEEDED Indication: FOR NERVE PAIN 5) LEVOTHYROXINE NA (SYNTHROID) 125MCG TAB TAKE ONE TABLET BY ACTIVE MOUTH EVERY MORNING 30 MINUTES BEFORE BREAKFAST FOR THYROID - TAKE ON AN EMPTY STOMACH WITH A FULL GLASS OF WATER 6) LIDOCAINE 5% PATCH APPLY 1 PATCH TOPICALLY EVERY 24 HOURS ACTIVE (LEAVE PATCH ON FOR 12 HOURS, THEN REMOVE PATCH) Indication: FOR LOW BACK PAIN 7) LORAZEPAM 0.5MG TAB TAKE ONE TABLET BY MOUTH TWICE DAILY ACTIVE (S) Indication: FOR ANXIETY 8) OMEPRAZOLE 20MG EC CAP TAKE ONE CAPSULE BY MOUTH EVERY ACTIVE (S) MORNING 30 MINUTES BEFORE BREAKFAST Indication: FOR GASTROESOPHAGEAL REFLUX DISEASE 9) PAROXETINE HCL 10MG TAB TAKE ONE TABLET BY MOUTH AT BEDTIME ACTIVE FOR MOOD Indication: FOR MAJOR DEPRESSIVE DISORDER 10) PEG 400 0.4%/PROP GLYCOL 0.3% OPH SOLN INSTILL 1 DROP INTO ACTIVE EACH EYE FOUR TIMES DAILY NEEDED Indication: FOR DRY EYE 11) PRAZOSIN HCL 5MG CAP TAKE ONE CAPSULE BY MOUTH AT BEDTIME ACTIVE (S) 12) ROSUVASTATIN CA 40MG TAB TAKE ONE TABLET BY MOUTH ONCE DAILY ACTIVE (S) FOR CHOLESTEROL Indication: FOR HIGH CHOLESTEROL 13) ZOLPIDEM TARTRATE 5MG TAB TAKE ONE TABLET BY MOUTH AT ACTIVE BEDTIME NEEDED FOR SLEEP Active Non-VA Medications Status 1) Non-VA OTHER CAP/TAB HYALURONIC ACID BY MOUTH ONCE DAILY ACTIVE 2) Non-VA VITAMIN D3 (CHOLECALCIFEROL) TAB BY MOUTH ACTIVE 15 Total Medications ALLERGIES: Patient has answered NKA VITALS (most recent, as listed in the electronic record): B/P: 109/72 (11/05/2024 11:44) Pulse: 73 (11/05/2024 11:44) Temperature: 97.9 F [36.6 C] (11/05/2024 11:44) Weight: 206 lb [93.44 kg] (11/05/2024 11:44) Height: 66 in [167.6 cm] (11/05/2024 11:44) BMI: BMI: 33.3 PERTINENT LABS: HEMOGLOBIN A1C TREND Collection DT Spec HGBA1c 11/15/2024 08:13 BLOOD 5.9 H 07/15/2024 10:30 BLOOD 5.6 12/18/2023 09:22 BLOOD 5.7 H 01/29/2023 11:57 BLOOD 5.7 H 12/04/2021 08:[address] from HT note, checked by Attending This 78 year old MALE is seen today for CEE Optometry Dinkey Mechanic Attending Provider Note: Date of Last Exam: February 2024 Location: [facility] Chief Complaint: Patient states my vision is getting tougher to see, eyes get blurry and tired, hard time seeing words. Every now and then gets crusty things in the eyes. Not using ATs any longer- I should but I don't really. No other ocular complaints today. HISTORY AND REVIEW OF SYSTEMS: OHx: 1. Combined cataracts OU 2. Refractive error, Presbyopia OU 3. Dry Eyes OU (-) Pain: (-) SOSA: (-) Diplopia: (-) Flashes: (-) Floaters: (-) Amaurosis Fugax/Tia's: (-) Eye Injury: (-) Eye Surgery: (+) TBI FOHx: (-) Glaucoma/ARMD/Blindness (-) Smoker/Length of Time/PPD: DIABEIC: No NEW ALLERGIES TO REPORT: No EYE MEDICATION(S): None CURRENT RX WITH BCVA: OD: -0.25 -1.50 x090 20/20-2 OS: plano -1.50 x085 20/25+1 Add: +2.50 DVA: ( )SC ( )CC (x)Phoropter ( )CL OD: 20/25+2 OS: 20/25-2 NVA OU: 20/30 MANIFEST REFRACTION(MRx): OD: -0.75 -1.50 x090 20/20 OS: -0.50 -1.50 x085 20/25 ADD: +2.50 20/25 OU CVF: Appear FTFC OU EOMS: Appear Full OU PUPILS: Appear ERRL(-)APD INTRAOCULAR PRESSURE (IOP) METHOD: Goldmann Time: 10:52AM OD: 10 OS: 10 ANTERIOR CHAMBER (AC): Penlight or slit lamp (if available) exam appears unremarkable. Pupils are dilated. Dilation and driving precautions reviewed with patient and patient expresses understanding. Medication: 1% Tropicamide, 2.5% Phenylephrine OU Time: 10:55AM Visual Imaging Performed Today: Additional Comments: Final Rx: OD: -0.75-1.77a514 20/20 OS: -0.50-1.13o651 20/25 Add: +2.50 SLE: Lids/Lashes: dermatochalasis OU, MGD OU Conjunctiva: white and quiet bulbar conj OU quiet palpebral conj OU Corneas: clear OU Iris: flat and clear OU AC: D & Q OU Angles: 4X4 OU Dilated Fundus Exam: Vit: syneresis OU Lens: 2+ NSC OU, 2+ ACC OU, 1+ PCC OU C/D (Size and Rim Description) OD 0.40 pink and healthy OS 0.40 pink and healthy PPole OD clear OS clear Macula OD flat and clear OS flat and clear A/V: normal caliber OU Periphery: flat and intact (-)holes, tears, detachments 360 OU Assessment/Plan: 1. Combined Cataracts OU - not visually significant at present -Pt ed re today's findings and the importance of UV protection -Pt ed cataracts may cause reduction of BCVA and symptoms of glare -RTC sooner if vision declines or interferes with ADLs - repeated back the plan and education. -Monitor 2. Dry Eye Syndrome OU - symptomatic. Uses CPAP nightly and has not been using ATs outside of a few days when first received. Agreeable to re-start treatment at this time. -Pt ed re today's findings -Recommend Artificial Tears QID OU -Recommend Lubricating ointment QHS OU -[place] repeated back the plan and education. -Monitor 3. Refractive Error and Presbyopia OU -Rx updated and ordered per pt request PALx2 -Monitor RTC 1 year or earlier PRN -- Glasses adjusted/repaired in office: () Yes (x) No If yes, how many pairs: -- Medication Reconciliation: Outpatient: Has the patient been taking medications as documented in the EMLR? YES: The patient has been taking medications as documented in the EMLR. Essential Medication List for Review used to complete this medication reconciliation. INCLUDED IN THIS LIST: Alphabetical list of active outpatient prescriptions dispensed from this [facility] (local) and dispensed from another [place] or [facility] facility (remote) as well as [...] whether with a VA or non-VA provider. Medication List: JLV Link Data on this list may not be complete. Please check JLV. Allergies/ADRs (Tool #5) FACILITY ALLERGY/ADR -------- [facility] NO KNOWN ALLERGIES [place] [facility] [place] [facility] No Known Allergies [facility] NO KNOWN ALLERGIES Med. Reconciliation (Tool #1) INCLUDED IN THIS LIST: Alphabetical list of active outpatient prescriptions dispensed from this [place] (local) and dispensed from another [place] or [facility] facility (remote) as well as inpatient orders (local pending and active), local clinic medications, locally documented non-VA medications, and local prescriptions that have or been discontinued in the past 90 days. Non-VA Meds Last Documented On: Jul 30, 2024 NOTE The display of VA prescriptions dispensed from another [facility] or [facility] facility (remote) is limited to active outpatient prescription entries matched to National Drug File at the originating site and may not include some items such as investigational drugs, compounds, etc. NOT INCLUDED IN THIS LIST: Medications self-entered by the patient into personal health records (i.e. [employer]) are NOT included in this list. Non-VA medications documented outside this [place], remote inpatient orders (regardless of status) and remote clinic medications are NOT included in this list. The patient and provider must always discuss medications the patient is taking, regardless of where the medication was dispensed or obtained. OUTPT AMOXICILLIN 500MG CAP (Status = Discontinued) TAKE ONE CAPSULE BY MOUTH TWICE DAILY FOR INFECTION CAUSED BY BACTERIA Rx# [id number] Last Released: Qty/Days Supply: 180/90 Rx Expiration Date: 02/03/25 Refills Remainin Indication: FOR INFECTION CAUSED BY BACTERIA OUTPT AMOXICILLIN 500MG CAP (Status = ) TAKE ONE CAPSULE BY MOUTH TWICE DAILY FOR INFECTION CAUSED BY BACTERIA Rx# [id number] Last Released: 11/05/24 Qty/Days Supply: 06/06 Rx Expiration Date: 12/05/24 Refills Remainin Indication: FOR INFECTION CAUSED BY BACTERIA OUTPT DM 10/GUAIFENESN 100MG/5ML (AF & SF) LIQ (Status = Active) TAKE 10 MLS BY MOUTH EVERY 6 HOURS NEEDED FOR COUGH Rx# [id number] Last Released: 11/05/24 Qty/Days Supply: 120/90 Rx Expiration Date: 02/03/25 Refills Remainin Indication: FOR COUGH OUTPT DULOXETINE HCL 60MG EC CAP (Status = Active/Suspended) TAKE ONE CAPSULE BY MOUTH ONCE DAILY Rx# [id number] Last Released: 10/30/24 Qty/Days Supply: 60/60 Rx Expiration Date: 09/15/25 Refills Remainin Indication: FOR MAJOR DEPRESSIVE DISORDER OUTPT GABAPENTIN 100MG CAP (Status = Active) TAKE ONE CAPSULE BY MOUTH EVERY MORNING AND TAKE ONE CAPSULE AT BEDTIME AND TAKE ONE CAPSULE AT NOON NEEDED FOR NERVE PAIN Rx# [id number] Last Released: 07/29/24 Qty/Days Supply: 270/90 Rx Expiration Date: 07/30/25 Refills Remainin Indication: FOR NERVE PAIN OUTPT LEVOTHYROXINE NA (SYNTHROID) 125MCG TAB (Status = Discontinued) TAKE ONE TABLET BY MOUTH EVERY MORNING 30 MINUTES BEFORE BREAKFAST FOR THYROID - TAKE ON AN EMPTY STOMACH WITH A FULL GLASS OF WATER Rx# [id number] Last Released: 06/18/24 Qty/Days Supply: 90/90 Rx Expiration Date: 09/16/24 Refills Remainin OUTPT LEVOTHYROXINE NA (SYNTHROID) 125MCG TAB (Status = Active) TAKE ONE TABLET BY MOUTH EVERY MORNING 30 MINUTES BEFORE BREAKFAST FOR THYROID - TAKE ON AN EMPTY STOMACH WITH A FULL GLASS OF WATER Rx# [id number] Last Released: 12/03/24 Qty/Days Supply: Rx Expiration Date: 09/22/25 Refills Remainin OUTPT LIDOCAINE 5% PATCH (Status = Active) APPLY 1 PATCH TOPICALLY EVERY 24 HOURS FOR LOW BACK PAIN (LEAVE PATCH ON FOR 12 HOURS, THEN REMOVE PATCH) Rx# [id number] Last Released: 09/10/24 Qty/Days Supply: Rx Expiration Date: 06/16/25 Refills Remainin Indication: FOR LOW BACK PAIN OUTPT LORAZEPAM 0.5MG TAB (Status = Discontinued) TAKE ONE TABLET BY MOUTH TWICE DAILY FOR ANXIETY Rx# [id number] Last Released: 11/12/24 Qty/Days Supply: Rx Expiration Date: 03/17/25 Refills Remainin Indication: FOR ANXIETY OUTPT LORAZEPAM 0.5MG TAB (Status = Active/Suspended) TAKE ONE TABLET BY MOUTH TWICE DAILY FOR ANXIETY Rx# [id number] Last Released: 12/01/24 Qty/Days Supply: Rx Expiration Date: 05/24/25 Refills Remainin Indication: FOR ANXIETY OUTPT OMEPRAZOLE 20MG EC CAP (Status = Active/Suspended) TAKE ONE CAPSULE BY MOUTH EVERY MORNING 30 MINUTES BEFORE BREAKFAST FOR GASTROESOPHAGEAL REFLUX DISEASE Rx# [id number] Last Released: 12/03/24 Qty/Days Supply: Rx Expiration Date: 12/03/25 Refills Remainin Indication: FOR GASTROESOPHAGEAL REFLUX DISEASE Non-VA OTHER CAP/TAB TAKE HYALURONIC ACID BY MOUTH ONCE DAILY Patient wants to buy from Non-VA pharmacy. OUTPT PAROXETINE HCL 10MG TAB (Status = Active) TAKE ONE TABLET BY MOUTH AT BEDTIME FOR MOOD Rx# [id number] Last Released: 11/22/24 Qty/Days Supply: Rx Expiration Date: 08/10/25 Refills Remainin Indication: FOR MAJOR DEPRESSIVE DISORDER OUTPT PEG 400 0.4%/PROP GLYCOL 0.3% OPH SOLN (Status = Active) INSTILL 1 DROP INTO EACH EYE FOUR TIMES DAILY NEEDED FOR DRY EYE Rx# [id number] Last Released: 08/18/24 Qty/Days Supply: Rx Expiration Date: 03/09/25 Refills Remainin Indication: FOR DRY EYE OUTPT PRAZOSIN HCL 5MG CAP (Status = Discontinued) TAKE ONE CAPSULE BY MOUTH AT BEDTIME Rx# [id number] Last Released: 06/18/24 Qty/Days Supply: 60 Rx Expiration Date: 09/17/24 Refills Remainin OUTPT PRAZOSIN HCL 5MG CAP (Status = Active/Suspended) TAKE ONE CAPSULE BY MOUTH AT BEDTIME Rx# [id number] Last Released: 11/10/24 Qty/Days Supply: 6060 Rx Expiration Date: 09/29/25 Refills Remainin OUTPT ROSUVASTATIN CA 40MG TAB (Status = Active/Suspended) TAKE ONE TABLET BY MOUTH ONCE DAILY FOR CHOLESTEROL Rx# [id number] Last Released: 10/12/24 Qty/Days Supply: 90 Rx Expiration Date: 07/30/25 Refills Remainin Indication: FOR HIGH CHOLESTEROL Non-VA VITAMIN D3 (CHOLECALCIFEROL) TAB TAKE BY MOUTH ONCE DAILY Patient wants to buy from Non-VA pharmacy. OUTPT ZOLPIDEM TARTRATE 5MG TAB (Status = Active) TAKE ONE TABLET BY MOUTH AT BEDTIME NEEDED FOR SLEEP Rx# [id number] Last Released: 12/09/24 QtyDays Supply: Rx Expiration Date: 03/17/25 Refills Remainin SUPPLIES OUTPT DEPEND UNDERWEAR,MAXIMUM,MEN LARGE (Status = Active) USE 1 BRIEF DIRECTED FIVE TIMES A DAY Rx# [id number] Last Released: 10/13/24 Qty/Days Supply: Rx Expiration Date: 01/07/25 Refills Remainin PHARMACY TERMS AND POSSIBLE PATIENT ACTIONS INPT = [facility] inpatient order IV = [place] intravenous medication OUTPT = [place] outpatient prescription PHARMACY POSSIBLE PATIENT TERMS EXPLANATION ACTIONS -------- ------ ACTIVE A prescription that can be If you have refills, filled at the local [place] pharmacy. you may request a refill of this prescription from your VA pharmacy. CLINIC A medication you received during If you have questions a visit to a [place] clinic or about this medication emergency department. contact your [place] healthcare team. DISCONTINUED A prescription your provider has Contact your VA stopped. It is no longer healthcare team if you available to be sent to you or need more of this picked up at the [place] pharmacy medication. window. A prescription which is too old Contact your VA to fill. This does not refer to healthcare team if you the expiration date of the need more of this medication in the container. medication. NON-VA A medication that came from If this medication someplace other than a VA information is pharmacy. This may be a incorrect or out of prescription from either the VA date, please tell your or non VA providers that was VA healthcare team. filled outside the VA. Or, it may be an wddz-tnc-wnfbfei (OTC), herbal, dietary supplements or sample medication. ON HOLD An active prescription that will Contact your [facility] not be filled until pharmacy pharmacy when you need resolves the issue. more of this medication. PARKED An active prescription that will Contact your VA not be filled until the patient pharmacy when you need requests it. this medication. PENDING This prescription order has been If you have been sent to the pharmacy for review instructed to start and is not ready yet. this medication now, contact your [place] pharmacy. SUSPENDED An active prescription that is Contact your [place] not scheduled to be filled yet. pharmacy if you need You should receive it before this medication now. you run out. (x) Printed Medication Reconciliation List Offered and Declined by [place] () Medication Reconciliation List Printed for at Exam () Optometry HT Please Print and Mail Copy of Medication Reconciliation List () [facility] Please Print and Mail Copy of Medication Reconciliation List /oscar/ RENAE SUE OD HEAD RESIDENT Signed: 12/15/2024 11:40 RENAE SUE [place] [facility] Dec 15, 2024 08:10 AM OPTOMETRY NOTE: LOCAL TITLE: OPTOMETRY NOTE STANDARD TITLE: OPTOMETRY NOTE DATE OF NOTE: DEC 15, 2024@08:10 ENTRY DATE: DEC 15, 2024@08:10:53 AUTHOR: NATALIE POON CHR EXP COSIGNER: URGENCY: STATUS: COMPLETED Active problems - Computerized Problem List is the source for the followin. Prediabetes 2. CKD stage 3 3. Bilateral hearing loss 4. Emphysema of lung 5. Former smoker 6. Radiculopathy due to lumbar intervertebral disc disorder 7. Providers 8. History of right total knee replacement 9. Solitary nodule of lung 10. Obstructive sleep apnea 11. Thoracic aortic aneurysm without rupture (SNOMED CT 39792742) 12. Mild cognitive impairment 13. Abdominal aortic aneurysm 14. Obesity 15. Benign prostatic hypertrophy 16. Restless legs syndrome 17. Constipation 18. Peripheral neuropathic pain 19. Gastroesophageal reflux disease 20. Depression (SNOMED CT 60647954) 21. Colonoscopy Screening 22. Hyperlipidemia (SNOMED CT 76171073) 23. Hypothyroidism (SNOMED CT 36874119) 24. Posttraumatic stress disorder (SNOMED CT 63514321) Active Outpatient Medications (including Supplies): Active Outpatient Medications Status 1) DEPEND UNDERWEAR,MAXIMUM,MEN LARGE USE 1 BRIEF DIRECTED ACTIVE FIVE TIMES A DAY 2) DM 10/GUAIFENESN 100MG/5ML (AF & SF) LIQ TAKE 10 MLS BY ACTIVE MOUTH EVERY 6 HOURS NEEDED Indication: FOR COUGH 3) DULOXETINE HCL 60MG EC CAP TAKE ONE CAPSULE BY MOUTH ONCE ACTIVE (S) DAILY Indication: FOR MAJOR DEPRESSIVE DISORDER 4) GABAPENTIN 100MG CAP TAKE ONE CAPSULE BY MOUTH EVERY MORNING ACTIVE AND TAKE ONE CAPSULE AT BEDTIME AND TAKE ONE CAPSULE AT NOON NEEDED Indication: FOR NERVE PAIN 5) LEVOTHYROXINE NA (SYNTHROID) 125MCG TAB TAKE ONE TABLET BY ACTIVE MOUTH EVERY MORNING 30 MINUTES BEFORE BREAKFAST FOR THYROID - TAKE ON AN EMPTY STOMACH WITH A FULL GLASS OF WATER 6) LIDOCAINE 5% PATCH APPLY 1 PATCH TOPICALLY EVERY 24 HOURS ACTIVE (LEAVE PATCH ON FOR 12 HOURS, THEN REMOVE PATCH) Indication: FOR LOW BACK PAIN 7) LORAZEPAM 0.5MG TAB TAKE ONE TABLET BY MOUTH TWICE DAILY ACTIVE (S) Indication: FOR ANXIETY 8) OMEPRAZOLE 20MG EC CAP TAKE ONE CAPSULE BY MOUTH EVERY ACTIVE (S) MORNING 30 MINUTES BEFORE BREAKFAST Indication: FOR GASTROESOPHAGEAL REFLUX DISEASE 9) PAROXETINE HCL 10MG TAB TAKE ONE TABLET BY MOUTH AT BEDTIME ACTIVE FOR MOOD Indication: FOR MAJOR DEPRESSIVE DISORDER 10) PEG 400 0.4%/PROP GLYCOL 0.3% OPH SOLN INSTILL 1 DROP INTO ACTIVE EACH EYE FOUR TIMES DAILY NEEDED Indication: FOR DRY EYE 11) PRAZOSIN HCL 5MG CAP TAKE ONE CAPSULE BY MOUTH AT BEDTIME ACTIVE (S) 12) ROSUVASTATIN CA 40MG TAB TAKE ONE TABLET BY MOUTH ONCE DAILY ACTIVE (S) FOR CHOLESTEROL Indication: FOR HIGH CHOLESTEROL 13) ZOLPIDEM TARTRATE 5MG TAB TAKE ONE TABLET BY MOUTH AT ACTIVE BEDTIME NEEDED FOR SLEEP Active Non-VA Medications Status 1) Non-VA OTHER CAP/TAB HYALURONIC ACID BY MOUTH ONCE DAILY ACTIVE 2) Non-VA VITAMIN D3 (CHOLECALCIFEROL) TAB BY MOUTH ACTIVE 15 Total Medications Allergies: Patient has answered NKA All medications including those prescribed by outside VA's, community providers, and all OTC meds were reviewed and reconciled with patient to the best of their abilities. This 78 year old MALE is seen today for CEE Optometry Dinkey Mechanic Attending Provider Note: Date of Last Exam: February 2024 Location: [facility] Chief Complaint: Patient states my vision is getting tougher to see, eyes get blurry and tired, hard time seeing words. Every now and then gets crusty things in the eyes. Not using ATs any longer- I should but I don't really. No other ocular complaints today. HISTORY AND REVIEW OF SYSTEMS: OHx: 1. Combined cataracts OU 2. Refractive error, Presbyopia OU 3. Dry Eyes OU (-) Pain: (-) SOSA: (-) Diplopia: (-) Flashes: (-) Floaters: (-) Amaurosis Fugax/Tia's: (-) Eye Injury: (-) Eye Surgery: (+) TBI FOHx: (-) Glaucoma/ARMD/Blindness (-) Smoker/Length of Time/PPD: DIABEIC: No NEW ALLERGIES TO REPORT: No EYE MEDICATION(S): None CURRENT RX WITH BCVA: OD: -0.25 -1.50 x090 20/20-2 OS: plano -1.50 x085 20/25+1 Add: +2.50 DVA: ( )SC ( )CC (x)Phoropter ( )CL OD: 20/25+2 OS: 20/25-2 NVA OU: 20/30 MANIFEST REFRACTION(MRx): OD: -0.75 -1.50 x090 20/20 OS: -0.50 -1.50 x085 20/25 ADD: +2.50 20/25 OU CVF: Appear FTFC OU EOMS: Appear Full OU PUPILS: Appear ERRL(-)APD INTRAOCULAR PRESSURE (IOP) METHOD: Goldmann Time: 10:52AM OD: 10 OS: 10 ANTERIOR CHAMBER (AC): Penlight or slit lamp (if available) exam appears unremarkable. Pupils are dilated. Dilation and driving precautions reviewed with patient and patient expresses understanding. Medication: 1% Tropicamide, 2.5% Phenylephrine OU Time: 10:55AM Visual Imaging Performed Today: Additional Comments: /oscar/ Natalie Poon [facility] Dinkey Mechanic Signed: 12/15/2024 10:56 NATALIE POON [facility]
--- OUTSIDE RECORDS SUMMARY | 2024-12-24 11:00 | XMS_ITS | Encounter Summary ---
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 Date/Time Encounter Type Encounter Description Reason Provider Source Dec 24, 2024 03:00 PM OFFICE O/P EST LOW 20 MIN PODIATRY ICD-10-CM L60.0 Ingrowing nail FEMITHOM Banegas Cara Encounter Template Text not used by [place] Assessments - Encounter Diagnoses This section includes the primary and secondary diagnoses documented for the Encounter. Date/Time Primary/Secondary Diagnosis Diagnosis Name Provider Source Dec 24, 2024 03:32 PM PRIMARY Ingrowing nail THOM KAHN DANIELE Dec 24, 2024 03:32 PM SECONDARY Pain in left toe(s) THOM KAHN Dec 24, 2024 03:32 PM SECONDARY Pain in right toe(s) THOM KAHN [facility] Dec 24, 2024 03:32 PM SECONDARY Type 2 diabetes mellitus without complications THOM KAHN Plan of Treatment: Future Appointments (+ 6 months) and Future Tests (+/- 45 days) The Plan of Treatment section includes future care activities for the patient from all [place] treatmentfacilities. This section includes future appointments and future orders which are active, pending or scheduled. Future Appointments This section includes appointments that were scheduled to occur 6 months from the date of the Encounter, up to a maximum of 20 appointments. The data comes from all [place] treatment facilities. Appointment Date/Time Appointment Type Appointme nt Facility Name Jan 04, 2025 11:00 AM [facility] [place] [facility] Jan 11, 2025 11:30 AM AMBULATORY - PSYCHIATRY [facility] Feb 15, 2025 10:00 AM [facility] Mar 15, 2025 11:30 AM AMBULATORY - MEDICINE [facility] March 24, 2025 10:00 AM AM[facility]UL[facility] April 22, 2025 02:30 PM [facility] May 03, 2025 11:00 AM AMBULATORY - PSYCHIATRY [facility] Jun 01, 2025 03:00 PM AMBULATORY - REHAB MEDICIN [facility] [place] [facility] Jun 08, 2025 08:00 AM AMBULATORY - MED[facility] Jun 16, 2025 11:00 AM AM[facility]UL[facility] - [facility]IATRY [facility] [place] [facility] Active, Pending, and Scheduled Orders This section includes a listing of several types of active, pending, and scheduled orders, including clinic medications orders, diagnostic test orders, procedure orders and consult orders; where the start date of the order is 45 days before the date of the Encounter or 45 days after the date of theEncounter. The data comes from all [place] treatment facilities. Test Date/Time Test Type Test Details Facility Name Nov 16, 2024 12:47 PM Consult Order DERMATOLOG Y/NHM (OUTPT) [employer] [place] [facility] [place] [facility] Social History: Smoking Status (Most current) and Tobacco Use (All prior to encounter date) This section includes the most current, and the historical, smoking and tobacco- related health factors from the [place] facility where the Encounter took place. Current Smoking Status This section includes the most current smoking, or tobacco-related health factor, from the [place] facility where the Encounter took place. Date/Time Current Smoking Status Comment Facil ity Jul 29, 2024 11:00 AM VA-TOBACCO QUIT 5 TO < 15 YRS [facility] Tobacco Use History This section includes a history of the smoking, or tobacco-related health factors, that were collected on or before the date of the Encounter. The data comes from the [place] facility where the Encounter took place. Date/Time Smoking Status/Tobacco Use Comment F acility Jul 29, 2024 11:00 AM VA-TOBACCO QUIT 5 TO < 15 YRS [facility] Jun 10, 2023 03:30 PM VA-TOBACCO FORMER USER [facility] Jun 10, 2023 03:30 PM VA-TOBACCO QUIT 1 TO < 5 YRS [facility] Jul 09, 2022 03:30 PM VA-TOBACCO FORMER USER [facility] Jul 09, 2022 03:30 PM VA-TOBACCO QUIT 15 YRS OR MORE [facility] Jun 08, 2021 09:00 AM VA-TOBACCO FORMER USER [facility] Jun 08, 2021 09:00 AM VA-TOBACCO QUIT < 1 YEAR [facility] Jun 20, 2020 09:38 AM VA-TOBACCO FORMER USER [facility] Jun 20, 2020 09:38 AM VA-TOBACCO QUIT 5 TO < 15 YRS [facility] Feb 10, 2019 06:20 PM VA-TOBACCO DOESNT USE WI 30 MIN WAKEUP [facility] Feb 10, 2019 06:20 PM VA-TOBACCO USE 30 YEARS OR MORE [facility] Feb 10, 2019 06:20 PM VA-TOBACCO USE ADVICE [facility] Feb 10, 2019 06:20 PM VA-TOBACCO USE [employer] AGENT NO [facility] Feb 10, 2019 06:20 PM VA-TOBACCO USE MED NO [facility] Feb 10, 2019 06:20 PM VA-TOBACCO USER SOME DAYS [facility] Mar 05, 2018 08:47 AM QUIT TOBACCO USE 1 -7 YEARS AGO [facility] Oct 07, 2017 02:29 PM QUIT TOBACCO USE IN PAST YEAR [facility] March 27, 2017 02:09 PM QUIT TOBACCO USE IN PAST Y EAR cigars [facility] Dec 04, 2016 02:35 PM [facility] Mar 19, 2016 10:33 AM V1-PT NOT INTEREST ED IN QUIT TOBACCO USE [facility] Feb 07, 2016 09:06 AM CURRENT SMOKER States he smokes cigars every couple of days [facility] Dec 06, 2014 09:39 AM CUR[facility] Oct 29, 2013 08:14 AM V1-PT DECLINES REF TO TOBACCO CESS [facility] Oct 29, 2013 08:14 AM V1-PT READY TO ROSANGELA T TOBACCO USE [facility] May 20, 2013 09:56 AM QUIT TOBACCO USE IN PAST YEAR [facility] Nov 12, 2012 08:56 AM V1-PT DECLINES REF TO TOBACCO CESS [facility] Nov 12, 2012 08:56 AM V1-PT DECLINES TOB ACCO CESSATION [facility] Nov 12, 2012 08:56 AM V1-PT THINKING ABO UT QUIT TOBACCO USE [facility] Aug 12, 2012 08:38 AM CURRENT SMOKER 4-5cigars/d [facility] Aug 05, 2011 11:00 AM CURRENT SMOKER Pt. smikes 1 cigar a day! [facility] Aug 05, 2011 11:00 AM V1-PT DECLINES REF TO TOBACCO CESS [facility] Aug 05, 2011 11:00 AM V1-PT DECLINES TOB ACCO CESSATION [facility] Aug 05, 2011 11:00 AM V1-PT THINKING ABO UT QUIT TOBACCO USE [facility] Sep 27, 2010 08:35 AM V1-PT DECLINES REF TO TOBACCO CESS [facility] Sep 27, 2010 08:35 AM V1-PT READY TO ROSANGELA T TOBACCO USE [facility] April 03, 2010 02:39 PM QUIT TOBACCO USE IN PAST YEAR [facility] Encounter Notes: All associated encounter notes This section contains the clinical notes associated to the Encounter. Date/Time Encounter Note(s) Provider Source Dec 24, 2024 11:21 AM PODIATRY NOTE: LOCAL TITLE: PODIATRY NOTE STANDARD TITLE: PODIATRY NOTE DATE OF NOTE: DEC 24, 2024@11:21 ENTRY DATE: DEC 24, 2024@11:21:24 AUTHOR: THOM KAHN COSIGNER: URGENCY: STATUS: COMPLETED NOTE: HAS RECEIVED BOTH COVID VACCINE DOSES +3 BOOSTERS AT [facility] LAST SEEN FOR TREATMENT: 08/20/2024 S: Pt. is a 79 yo alert WDWN TRENT MALE who is seen for continued podiatric care for treatment of a presenting complaint of painful ingrown toenails. Patient has been referred by: DR. RUIZ Location of symptoms are:nails 1-2-3-4-5 bilateral Onset of symptoms has been several weeks due to this being a recurrent condition that has been exacerbating over the past few months with no previous treatment. Duration of symptoms is now daily with periods of exacerbation and remission. Description of symptoms is of an aching sharp nature especially with dorsi & plantar flexion of the foot and toes. Contributing factors are: shoes and increased activity. PMH: Active problems - Computerized Problem List is the source for the following: *NOTE: REVIEWED ABOVE NOTING NO CHANGES SINCE PREVIOUS VISIT: * (OBESITY, NEUROPATHY, PRE-DM BEING CONTRIBUTORY) *NOTE: PLEASE SEE PROBLEM LIST TEMPLATE FOR COMPLETE LIST NEEDED. Family History: Non-contributory Social History: N/A *DENIES ANY RECENT CHANGES IN MEDS UPON QUESTIONING TODAY-SEE RECONCILIATION PERFORMED THIS DATE BELOW TOBACCO USE =NONE Allergies:Patient has answered NKA Previous Surgery/Hospitalization: N/A *NOTE: A1C=5.9 (LAST TAKEN: 10/2024) FBS= DNP RISK=2 HEIGHT:207 lb [94.1 kg] (01/06/2020 09:12) WEIGHT:67 in [170.2 cm] (07/09/2019 08:32) REVIEW OF SYSTEMS: DEFERRED BEING NON-CONTRIBUTORY TO THE CC & I HAVE REVIEWED THE PCP NOTES & PMH. O: DERMATOLOGICAL: Exam reveals skin color, temp & text to be WNL. There is normal distribution of hair noted. Nails are WNL and not in need of care. There are no superficial painful hyperkeratotic lesions noted at this time. There are no rashes, ulcers, indurations or nodules noted. VASCULAR: Exam reveals DP & PT pulses to be +2 equal & symmetrical bilateral. CFT is < 3 sec x 10. There are no superficial varices noted and there is no edema noted. MUSCULOSKELETAL: Exam reveals muscle strength and tone to be equal & symmetrical bilaterally & WNL for an individual of this age and present physical-medical condition. There is pain free ROM at all joints distal to and including the ankle. NEUROLOGICAL: Exam reveals S/D, vibratory, light touch & proprioception sensations to be equal & symmetrical bilaterally & WNL for an individual of this age and present physical-medical status. Protective sensation utilizing a [place] lOg monofilament is 0/10 LT and 3/10 RT. BIOMECHANICAL: Exam is deferred at this time due to the presence of pain. A: Clinical Impression is painful onychocryptic nails 1-2-3-4-5 bilateral IN THE PRESENCE OF PAIN. P: Treatment consists of trimming-reduction of all nails via manual & electirc means with curetting of th enail grooves. All care rendered without complications & the patient is progressing well after podiatric care this date and will be scheduled for periodic podiatric nail care RTC: 20 WEEKS I DISCUSSED THE FINDINGS & PLAN WITH PATIENT (UNCHANGED SINCE PREVIOUS VISIT) & PATIENT AGREES AND UNDERSTANDS PLAN ((ask about -coming home to day from hosp- ca diagnosis and now waiting for pathology to determine next course of tx. Medication Reconciliation: PERFORMED TODAY - SEE BELOW. Outpatient: Has the patient been taking medications [...] whether with a VA or non-VA provider. JLV Link Data on this list may not be complete. Please check JLV. Allergies/ADRs (Tool #5) FACILITY ALLERGY/ADR -------- [facility] NO KNOWN ALLERGIES [place] [facility] [place] [facility] No Known Allergies [facility] NO KNOWN ALLERGIES Med [facility] (Tool #1) INCLUDED IN THIS LIST: Alphabetical list of active outpatient prescriptions dispensed from this [place] (local) and dispensed from another [place] or [facility] facility (remote) as well as inpatient orders (local pending and active), local clinic medications, locally documented non-VA medications, and local prescriptions that have or been discontinued in the past 90 days. Non-VA Meds Last Documented On: Jul 30, 2024 NOTE The display of VA prescriptions dispensed from another [place] or [facility] facility (remote) is limited to active outpatient prescription entries matched to National Drug File at the originating site and may not include some items such as investigational drugs, compounds, etc. NOT INCLUDED IN THIS LIST: Medications self-entered by the patient into personal health records (i.e. [employer]) are NOT included in this list. Non-VA medications documented outside this [place], remote inpatient orders (regardless of status) and remote clinic medications are NOT included in this list. The patient and provider must always discuss medications the patient is taking, regardless of where the medication was dispensed or obtained. OUTPT AMOXICILLIN 500MG CAP (Status = Discontinued) TAKE ONE CAPSULE BY MOUTH TWICE DAILY FOR INFECTION CAUSED BY BACTERIA Rx# [id number] Last Released: Qty/Days Supply: Rx Expiration Date: 02/03/25 Refills Remainin Indication: FOR INFECTION CAUSED BY BACTERIA OUTPT AMOXICILLIN 500MG CAP (Status = ) TAKE ONE CAPSULE BY MOUTH TWICE DAILY FOR INFECTION CAUSED BY BACTERIA Rx# [id number] Last Released: 11/05/24 Qty/Days Supply: 06/06 Rx Expiration Date: 12/05/24 Refills Remainin Indication: FOR INFECTION CAUSED BY BACTERIA OUTPT DM 10/GUAIFENESN 100MG/5ML (AF & SF) LIQ (Status = Active) TAKE 10 MLS BY MOUTH EVERY 6 HOURS NEEDED FOR COUGH Rx# [id number] Last Released: 11/05/24 Qty/Days Supply: 120/90 Rx Expiration Date: 02/03/25 Refills Remainin Indication: FOR COUGH OUTPT DULOXETINE HCL 60MG EC CAP (Status = Active) TAKE ONE CAPSULE BY MOUTH ONCE DAILY Rx# [id number] Last Released: 10/30/24 Qty/Days Supply: 60/60 Rx Expiration Date: 09/15/25 Refills Remainin Indication: FOR MAJOR DEPRESSIVE DISORDER OUTPT GABAPENTIN 100MG CAP (Status = Active) TAKE ONE CAPSULE BY MOUTH EVERY MORNING AND TAKE ONE CAPSULE AT BEDTIME AND TAKE ONE CAPSULE AT NOON NEEDED FOR NERVE PAIN Rx# [id number] Last Released: 07/29/24 Qty/Days Supply: 270/90 Rx Expiration Date: 07/30/25 Refills Remainin Indication: FOR NERVE PAIN OUTPT LEVOTHYROXINE NA (SYNTHROID) 125MCG TAB (Status = Active) TAKE ONE TABLET BY MOUTH EVERY MORNING 30 MINUTES BEFORE BREAKFAST FOR THYROID - TAKE ON AN EMPTY STOMACH WITH A FULL GLASS OF WATER Rx# [id number] Last Released: 12/03/24 Qty/Days Supply: 90 Rx Expiration Date: 09/22/25 Refills Remainin OUTPT LIDOCAINE 5% PATCH (Status = Active) APPLY 1 PATCH TOPICALLY EVERY 24 HOURS FOR LOW BACK PAIN (LEAVE PATCH ON FOR 12 HOURS, THEN REMOVE PATCH) Rx# [id number] Last Released: 09/10/24 Qty/Days Supply: 90/ Rx Expiration Date: 06/16/25 Refills Remainin Indication: FOR LOW BACK PAIN OUTPT LORAZEPAM 0.5MG TAB (Status = Discontinued) TAKE ONE TABLET BY MOUTH TWICE DAILY FOR ANXIETY Rx# [id number] Last Released: 11/12/24 Qty/Days Supply: Rx Expiration Date: 03/17/25 Refills Remainin Indication: FOR ANXIETY OUTPT LORAZEPAM 0.5MG TAB (Status = Active) TAKE ONE TABLET BY MOUTH TWICE DAILY FOR ANXIETY Rx# [id number] Last Released: 12/23/24 Qty/Days Supply: Rx Expiration Date: 05/24/25 Refills Remainin Indication: FOR ANXIETY OUTPT OMEPRAZOLE 20MG EC CAP (Status = Active/Suspended) TAKE ONE CAPSULE BY MOUTH EVERY MORNING 30 MINUTES BEFORE BREAKFAST FOR GASTROESOPHAGEAL REFLUX DISEASE Rx# [id number] Last Released: 12/03/24 Qty/Days Supply: Rx Expiration Date: 12/03/25 Refills Remainin Indication: FOR GASTROESOPHAGEAL REFLUX DISEASE Non-VA OTHER CAP/TAB TAKE HYALURONIC ACID BY MOUTH ONCE DAILY Patient wants to buy from Non-[place] pharmacy. OUTPT PAROXETINE HCL 10MG TAB (Status = Active) TAKE ONE TABLET BY MOUTH AT BEDTIME FOR MOOD Rx# [id number] Last Released: 11/22/24 Qty/Days Supply: 60 Rx Expiration Date: 08/10/25 Refills Remainin Indication: FOR MAJOR DEPRESSIVE DISORDER OUTPT PEG 400 0.4%/PROP GLYCOL 0.3% OPH SOLN (Status = Active) INSTILL 1 DROP INTO EACH EYE FOUR TIMES DAILY NEEDED FOR DRY EYE Rx# [id number] Last Released: 08/18/24 Qty/Days Supply: Rx Expiration Date: 03/09/25 Refills Remainin Indication: FOR DRY EYE OUTPT PRAZOSIN HCL 5MG CAP (Status = Active/Suspended) TAKE ONE CAPSULE BY MOUTH AT BEDTIME Rx# [id number] Last Released: 11/10/24 Qty/Days Supply: 60 Rx Expiration Date: 09/29/25 Refills Remainin OUTPT ROSUVASTATIN CA 40MG TAB (Status = Active/Suspended) TAKE ONE TABLET BY MOUTH ONCE DAILY FOR CHOLESTEROL Rx# [id number] Last Released: 10/12/24 Qty/Days Supply: Rx Expiration Date: 07/30/25 Refills Remainin Indication: FOR HIGH CHOLESTEROL Non-VA VITAMIN D3 (CHOLECALCIFEROL) TAB TAKE BY MOUTH ONCE DAILY Patient wants to buy from Non-[place] pharmacy. 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
--- OUTSIDE RECORDS SUMMARY | 2025-01-04 07:00 | XMS_ITS | Encounter Summary ---
Author Name [facility] [place] [place] Organization [facility] [place] Address [address] [place] [address] Care Team Providers Care Service Technician Name Role Phone FRANCO CAMPBELL Primary Care [...] PART A Nov 24, 2010 PART A [id number] ROHINI CARBAJAL CHARD PATIENT MEDICARE (WNR) MEDICARE (M) PART A Nov 24, 2010 PART A [id number] ROHINI CARBAJAL CHARD PATIENT MEDICARE (WNR) MEDICARE (M) PART A Nov 24, 2008 PART A [id number] ROHINI CARBAJAL CHARD PATIENT MEDICARE (WNR) MEDICARE (M) PART A Nov 24, 2008 PART A [id number] [phone] SOLOMON,ROHINI TODD PATIENT Selected Encounter This section includes the information on record at [place] for the Encounter. Date/Time Encounter Type Encounter Description Reason Provider Source Jan 04, 2025 11:00 AM PSYTX W PT 60 MINUTES [facility] - IND ICD-10-CM F43.12 Post-traumatic stress disorder, chronic ABRANHUNTER Cara Encounter Template Text not used by [place] Assessments - Encounter Diagnoses This section includes the primary and secondary diagnoses documented for the Encounter. Date/Time Primary/Secondary Diagnosis Diagnosis Name Provider Source Jan 04, 2025 01:55 PM PRIMARY Post-traumatic stress disorder, HUNTER Garcia [place] Plan of Treatment: Future Appointments (+ 6 months) and Future Tests (+/- 45 days) The Plan of Treatment section includes future care activities for the patient [facility] [place] [facility] This section includes future appointments and future orders which are active, pending or scheduled. Future Appointments This section includes appointments that were scheduled to occur 6 months from the date of the Encounter, up to a maximum of 20 appointments. The data comes from all [place] treatment facilities. Appointment Date/Time Appointment Type Appointme nt Facility Name Jan 11, 2025 11:30 AM AMBULATORY - PSYCHIATRY [facility] Feb 15, 2025 10:00 AM AMBULATORY - [place]RY [place] [facility] [place] [facility] Mar 15, 2025 11:30 AM AMBULATORY - MEDICINE [facility] March 24, 2025 10:00 AM AMBULATORY PS[facility]CHIATRY [place] [facility] [place] [facility] April 22, 2025 02:30 PM AMBULATORY - MEDICINE [facility] May 03, 2025 11:00 AM AMBULATORY - PSYCHIATRY [facility] Jun 01, 2025 03:00 PM AMBULATORY - REHAB MEDICIN [facility] [place] [facility] Jun 08, 2025 08:00 AM AMBULATORY - MEDICINE [place] [facility] [place] [facility] Jun 16, 2025 11:00 AM [facility] Social History: Smoking Status (Most current) and Tobacco Use (All prior to encounter date) This section includes the most current, and the historical, smoking and tobacco- related health factors from the [place] facility where the Encounter took place. Current Smoking Status This section includes the most current smoking, or tobacco-related health factor, from the [place] facility where the Encounter took place. Date/Time Current Smoking Status Comment Facil ity Jul 29, 2024 11:00 AM VA-TOBACCO FORMER USER [place] Tobacco Use History This section includes a history of the smoking, or tobacco-related health factors, that were collected on or before the date of the Encounter. The data comes from the [place] facility where the Encounter took place. Date/Time Smoking Status/Tobacco Use Comment F acjonatan Jul 29, 2024 11:00 AM VA-TOBACCO QUIT 5 TO < 15 YRS [place] Jun 10, 2023 03:30 PM VA-TOBACCO FORMER USER [place] Jun 10, 2023 03:30 PM VA-TOBACCO QUIT 1 TO < 5 YRS [place] Jul 09, 2022 03:30 PM VA-TOBACCO FORMER USER [place] Jul 09, 2022 03:30 PM VA-TOBACCO QUIT 15 YRS OR MORE [place] Jun 08, 2021 09:00 AM VA-TOBACCO FORMER USER [place] Jun 08, 2021 09:00 AM VA-TOBACCO QUIT < 1 YEAR [place] Jun 20, 2020 09:38 AM VA-TOBACCO FORMER USER [place] Jun 20, 2020 09:38 AM VA-TOBACCO QUIT 5 TO < 15 YRS [place] Feb 10, 2019 06:20 PM VA-TOBACCO DOESNT USE WI 30 MIN WAKEUP [place] Feb 10, 2019 06:20 PM VA-TOBACCO USE 30 YEARS OR MORE [place] Feb 10, 2019 06:20 PM VA-TOBACCO USE ADVICE [place] Feb 10, 2019 06:20 PM VA-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 [place] Feb 10, 2019 06:20 PM VA-TOBACCO USE MED NO [place] Feb 10, 2019 06:20 PM VA-TOBACCO USER SOME DAYS [place] Mar 05, 2018 08:47 AM QUIT TOBACCO USE 1 -7 YEARS AGO [place] Oct 07, 2017 02:29 PM QUIT TOBACCO USE IN PAST YEAR [place] March 27, 2017 02:09 PM QUIT TOBACCO USE IN PAST Y EAR cigars [place] Dec 04, 2016 02:35 PM CURRENT SMOKER [facility] Mar 19, 2016 10:33 AM V1-PT NOT INTEREST ED IN QUIT TOBACCO USE [place] Feb 07, 2016 09:06 AM CURRENT SMOKER States he smokes cigars every couple of days [place] Dec 06, 2014 09:39 AM CURRENT [facility] Oct 29, 2013 08:14 AM V1-PT DECLINES REF TO TOBACCO CESS PRGM [place] Oct 29, 2013 08:14 AM V1-PT READY TO ROSANGELA T TOBACCO USE [place] May 20, 2013 09:56 AM QUIT TOBACCO USE IN PAST YEAR [place] Nov 12, 2012 08:56 AM V1-PT DECLINES REF TO TOBACCO CESS [facility] Nov 12, 2012 08:56 AM V1-PT DECLINES TOB ACCO CESSATION [facility] Nov 12, 2012 08:56 AM V1-PT THINKING ABO UT QUIT TOBACCO USE [place] Aug 12, 2012 08:38 AM CURRENT SMOKER 4-5cigars/d [place] Aug 05, 2011 11:00 AM CURRENT SMOKER Pt. smikes 1 cigar a day! [place] Aug 05, 2011 11:00 AM V1-PT DECLINES REF TO TOBACCO CESS [facility] Aug 05, 2011 11:00 AM V1-PT DECLINES TOB ACCO CESSATION [facility] Aug 05, 2011 11:00 AM V1-PT THINKING ABO UT QUIT TOBACCO USE [place] Sep 27, 2010 08:35 AM V1-PT DECLINES REF TO TOBACCO CESS [facility] Sep 27, 2010 08:35 AM V1-PT READY TO ROSANGELA T TOBACCO USE [place] April 03, 2010 02:39 PM QUIT TOBACCO USE IN PAST YEAR [place] Encounter Notes: All associated encounter notes This section contains the clinical notes associated to the Encounter. Date/Time Encounter Note(s) Provider Source Jan 04, 2025 01:49 PM SOCIAL WORK NOTE: LOCAL TITLE: SOCIAL WORK NOTE STANDARD TITLE: SOCIAL WORK NOTE DATE OF NOTE: JAN 04, 2025@13:49 ENTRY DATE: JAN 04, 2025@13:49:41 AUTHOR: HUNTER OSULLIVAN COSIGNER: ANDREI MILLER URGENCY: STATUS: COMPLETED INFORMED CONSENT REVIEWED: At beginning of session reviewed rights and limits of confidentiality, mandatory reporting situations, duty to warn and protect, [place] Warning, (if treatment team finds patient to be an acute danger to himself or others, that this information could be relayed to a court of law and presented to a admissions consultant), and DOD access for active duty service members. Provided Suicide Prevention Hotline number, and other contact numbers as necessary. VISIT DURATION 60 minutes DIAGNOSES: PTSD, chronic [employer] STATEMENT OF GOALS/CONCERNS: I've been seeing a therapist at the [facility] for years for my PTSD but [...] though I liked my therapist [facility], it got to where he never asked me about my symptoms and we never worked on them, but I've been getting worse all the while. SESSION FOCUS: Shazia reported that his recently underwent major surgery for cancer and is currently in recovery. discussed some of the day to day impacts of this situation, especially in terms of the help that his gives him around his memory problems. Camby stated that his 's daughter has temporarily taken some of those tasks for him. 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 This is scheduled for 01/31/25 and he expects to be in recovery two weeks after that. Scheduled RTC accordingly. INTERVENTIONS: Psychotherapeutic Interventions: Validating, active listening, reflecting [...] FOR FOLLOW-UP: Begin orientation, history, target list for EMDR therapy. This case is supervised by LOUIS Fraser. Diagnosis, treatment plan, and response to care are reviewed in standard 1-hour, or more, weekly individual supervision /oscar/ HUNTER OSULLIVAN MANAGER PET Signed: 01/04/2025 13:55 /oscar/ ANDREI MILLER POOL ATTENDANT [employer] Man Mental Health Cosigned: 01/04/2025 14:03 HUNTER OSULLIVAN
--- OUTSIDE RECORDS SUMMARY | 2025-01-11 07:30 | XMS_ITS | Encounter Summary ---
Author Name [facility] [place] [place] Organization [facility] [place] Address [address] [place] [address] Care Team Providers Care Grades 6 Through 8 Teacher Name Role Phone FRANCO CAMPBELL Primary Care [...] PART A Nov 24, 2010 PART A [id number] ROHINI CARBAJAL CHARD PATIENT MEDICARE (WNR) MEDICARE (M) PART A Nov 24, 2010 PART A [id number] [phone] SOLOMON,ROHINI CHARD PATIENT MEDICARE (WNR) MEDICARE (M) PART A Nov 24, 2008 PART A [id number] [phone] SOLOMON,ROHINI CHARD PATIENT MEDICARE (WNR) MEDICARE (M) PART A Nov 24, 2008 PART A [id number] [phone] SOLOMON,ROHINI TODD PATIENT Selected Encounter This section includes the information on record at [place] for the Encounter. Date/Time Encounter Type Encounter Description Reason Provider Source Jan 11, 2025 11:30 AM OFFICE O/P EST LOW 20 MIN [facility] - IND ICD-10-CM G31.84 Mild cognitive impairment of uncertain or unknown etiology KYLE BREWER Bassam [facility] Encounter Template Text not used by [place] Assessments - Encounter Diagnoses This section includes the primary and secondary diagnoses documented for the Encounter. Date/Time Primary/Secondary Diagnosis Diagnosis Name Provider Source Jan 11, 2025 12:51 PM PRIMARY Mild cognitive impairment of uncertain or unknown etiology KYLE BREWER [place] Plan of Treatment: Future Appointments (+ 6 months) and Future Tests (+/- 45 days) The Plan of Treatment section includes future care activities for the patient from all [place] [facility] This section includes future appointments and future orders which are active, pending or scheduled. Future Appointments This section includes appointments that were scheduled to occur 6 months from the date of the Encounter, up to a maximum of 20 appointments. The data comes from all [place] treatment facilities. Appointment Date/Time Appointment Type Appointme nt Facility Name Feb 15, 2025 10:00 AM AMBULATORY - PS[facility]CHIATRY [place] [facility] [place] [facility] Mar 15, 2025 11:30 AM AMBULATORY - MEDICINE [facility] March 24, 2025 10:00 AM [facility] April 22, 2025 02:30 PM AMBULATORY - MEDICINE [facility] May 03, 2025 11:00 AM AMBULATORY - PSYCHIATRY [facility] Jun 01, 2025 03:00 PM AMBULATORY - REHAB MEDICIN E [place] [facility] [facility] Jun 08, 2025 08:00 AM [facility] Jun 16, 2025 11:00 AM [facility] Social History: Smoking Status (Most current) and Tobacco Use (All prior to encounter date) This section includes the most current, and the historical, smoking and tobacco- related health factors from the [place] facility where the Encounter took place. Current Smoking Status This section includes the most current smoking, or tobacco-related health factor, from the [place] facility where the Encounter took place. Date/Time Current Smoking Status Comment [facility] Jul 29, 2024 11:00 AM VA-TOBACCO FORMER USER [place] Tobacco Use History This section includes a history of the smoking, or tobacco-related health factors, that were collected on or before the date of the Encounter. The data comes from the [place] facility where the Encounter took place. Date/Time Smoking Status/Tobacco Use Comment F acility Jul 29, 2024 11:00 AM VA-TOBACCO QUIT 5 TO < 15 YRS [facility] Jun 10, 2023 03:30 PM VA-TOBACCO FORMER USER [place] Jun 10, 2023 03:30 PM VA-TOBACCO QUIT 1 TO < 5 YRS [facility] Jul 09, 2022 03:30 PM VA-TOBACCO FORMER USER [facility] Jul 09, 2022 03:30 PM VA-TOBACCO QUIT 15 YRS OR MORE [facility] Jun 08, 2021 09:00 AM VA-TOBACCO FORMER USER [place] Jun 08, 2021 09:00 AM VA-TOBACCO QUIT < 1 YEAR [facility] Jun 20, 2020 09:38 AM VA-TOBACCO FORMER USER [place] Jun 20, 2020 09:38 AM VA-TOBACCO QUIT 5 TO < 15 YRS [place] Feb 10, 2019 06:20 PM VA-TOBACCO DOESNT USE WI 30 MIN WAKEUP [facility] Feb 10, 2019 06:20 PM VA-TOBACCO USE 30 YEARS OR MORE [facility] Feb 10, 2019 06:20 PM VA-TOBACCO USE ADVICE [facility] Feb 10, 2019 06:20 PM VA-TOBACCO USE ULTRASOUND APPLICATIONS SPECIALIST NO [facility] Feb 10, 2019 06:20 PM VA-TOBACCO USE MED NO [facility] Feb 10, 2019 06:20 PM VA-TOBACCO USER SOME DAYS [facility] Mar 05, 2018 08:47 AM QUIT TOBACCO USE 1 -7 YEARS AGO [facility] Oct 07, 2017 02:29 PM QUIT TOBACCO USE IN PAST YEAR [facility] March 27, 2017 02:09 PM QUIT TOBACCO USE IN PAST Y EAR cigars [facility] Dec 04, 2016 02:35 PM CUR[facility] Mar 19, 2016 10:33 AM V1-PT NOT INTEREST ED IN QUIT TOBACCO USE [facility] Feb 07, 2016 09:06 AM CURRENT SMOKER States he smokes cigars every couple of days [facility] Dec 06, 2014 09:39 AM CURRENT [facility] Oct 29, 2013 08:14 AM V1-PT DECLINES REF TO TOBACCO CESS PRGM [facility] Oct 29, 2013 08:14 AM V1-PT READY TO ROSANGELA T TOBACCO USE [facility] May 20, 2013 09:56 AM QUIT TOBACCO USE IN PAST YEAR [facility] Nov 12, 2012 08:56 AM V1-PT DECLINES REF TO TOBACCO CESS [facility] Nov 12, 2012 08:56 AM V1-PT DECLINES TOB ACCO CESSATION [facility] Nov 12, 2012 08:56 AM V1-PT THINKING ABO UT QUIT TOBACCO USE [facility] Aug 12, 2012 08:38 AM CURRENT SMOKER 4-5cigars/d [facility] Aug 05, 2011 11:00 AM CURRENT SMOKER Pt. smikes 1 cigar a day! [facility] Aug 05, 2011 11:00 AM V1-PT DECLINES REF TO TOBACCO CESS [facility] Aug 05, 2011 11:00 AM V1-PT DECLINES TOB ACCO CESSATION [facility] Aug 05, 2011 11:00 AM V1-PT THINKING ABO UT QUIT TOBACCO USE [place] Sep 27, 2010 08:35 AM V1-PT DECLINES REF TO TOBACCO CESS [facility] Sep 27, 2010 08:35 AM V1-PT READY TO ROSANGELA T TOBACCO USE [facility] April 03, 2010 02:39 PM QUIT TOBACCO USE IN PAST YEAR [facility] Encounter Notes: All associated encounter notes This section contains the clinical notes associated to the Encounter. Date/Time Encounter Note(s) Provider Source Jan 11, 2025 12:34 PM CLINICAL NURSE SPE CIALIST NOTE: LOCAL TITLE: CLINICAL NURSE SPECIALIST/MENTAL HEALTH STANDARD TITLE: CLINICAL NURSE SPECIALIST NOTE DATE OF NOTE: JAN 11, 2025@12:34 ENTRY DATE: JAN 11, 2025@12:34:06 AUTHOR: KYLE BREWER EXP COSIGNER: URGENCY: STATUS: COMPLETED Pertinent symptoms: PTSD, chronic symptoms. - In person 30 min- - medication management. Followed by Ana Lilia Oswald [facility] for counseling Taking Duloxetine for mood and neuropathic pain, taking 40 mg. He states that he [...] disease); Major Depressive Disorder, recurrent; Chronic PTSD Hw reports that his has cancer surgery last week- and is recovering slowly. -Attending SIN meetings . Remains active as much as he can. He is driving. He states he still has periods of depression- but improved He is followed at the [facility]-and now [facility]. 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 Renew Ambien 5 mg at he for sleep prn. Lorazepam .5 mg bid x 30 days for anxiety takes usually one tab daily. Concerned about his health Labs/Radiology/Tests/Consultation _ none ordered __ obtained: labs [...] this patient. I asked the patient call [phone] ([facility]) or to come to open access if needed Depression Monitoring (PHQ-9): PHQ-9 A PHQ-9 screen was performed. The score was 3. 1. Little interest or pleasure in doing things Not at all 2. Feeling down, depressed, or hopeless Several days 3. Trouble falling or staying asleep, or sleeping too much Not at all 4. Feeling tired or having little energy Several days 5. Poor appetite or overeating Not at all 6. Feeling bad about yourself or that you are a failure or have let yourself or your family down Not at all 7. Trouble concentrating on things, such as reading the newspaper or watching television Several days 8. Moving or speaking so slowly that other people could have noticed. Or the opposite being so fidgety or restless that you have been moving around a lot more than usual Not at all 9. Thoughts that you would be better off or of hurting yourself in some way Not at all 10. If you checked off any problems, how DIFFICULT have these problems made it for you to do your work, take care of things at home or get along with other people? Somewhat difficult [place] had no previous PHQ-9 score to compare to current score to gauge improvement Interprofessional Communication: No communication needed /oscar/ Kyle Brewer APRN, STAFF CLINICAL NURSE SPECIALIST Signed: 01/11/2025 12:51 KYLE BREWERFIELD
--- OUTSIDE RECORDS SUMMARY | 2025-02-15 06:00 | XMS_ITS | Encounter Summary ---
Author Name [facility] [place] [facility] [place] Address [address] [place] [address] Care Team Providers Care Lumber Tripper Name Role Phone FRANCO CAMPBELL Primary Care [...] PART A Nov 24, 2010 PART A [id number] ROHINI CARBAJAL CHARD PATIENT MEDICARE (WNR) MEDICARE (M) PART A Nov 24, 2010 PART A [id number] ROHINI CARBAJAL CHARD PATIENT MEDICARE (WNR) MEDICARE (M) PART A Nov 24, 2008 PART A [id number] ROHINI CARBAJAL CHARD PATIENT MEDICARE (WNR) MEDICARE (M) PART A Nov 24, 2008 PART A [id number] [phone] SOLOMON,ROHINI TODD PATIENT Selected Encounter This section includes the information on record at [place] for the Encounter. Date/Time Encounter Type Encounter Description Reason Provider Source Feb 15, 2025 10:00 AM PSYTX W PT 60 [facility]UTES [facility] - IND ICD-10-CM F43.12 Post-traumatic stress disorder, chronic ABRANHUNTER Cara Encounter Template Text not used by [place] Assessments - Encounter Diagnoses This section includes the primary and secondary diagnoses documented for the Encounter. Date/Time Primary/Secondary Diagnosis Diagnosis Name Provider Source Feb 15, 2025 10:58 AM PRIMARY Post-traumatic stress disorder, chronic HUNTER OSULLIVAN [place] Plan of Treatment: Future Appointments (+ 6 months) and Future Tests (+/- 45 days) The Plan of Treatment section includes future care activities for the patient from all [place] [facility]. This section includes future appointments and future orders which are active, pending or scheduled. Future Appointments This section includes appointments that were scheduled to occur 6 months from the date of the Encounter, up to a maximum of 20 appointments. The data comes from all [place] treatment facilities. Appointment Date/Time Appointment Type Appointme nt Facility Name Mar 15, 2025 11:30 AM AMBULATORY - MEDICINE [facility] March 24, 2025 10:00 AM [facility] April 22, 2025 02:30 PM AMBULATORY - MEDICINE [facility] May 03, 2025 11:00 AM AMBULATORY - PSYCHIATRY [facility] Jun 01, 2025 03:00 PM AM[place] [facility] Jun 08, 2025 08:00 AM AM[place]UL[place]ORY [place]ICINE [place] [facility] [place] [facility] Jun 16, 2025 11:00 AM AMBULATORY - [place]IATRY [place] [facility] [place] [facility] Jul 20, 2025 03:00 PM AMBULATORY - MEDICINE [facility] Jul 28, 2025 09:00 AM [facility]UL[facility] Social History: Smoking Status (Most current) and Tobacco Use (All prior to encounter date) This section includes the most current, and the historical, smoking and tobacco- related health factors from the [place] facility where the Encounter took place. Current Smoking Status This section includes the most current smoking, or tobacco-related health factor, from the [place] facility where the Encounter took place. Date/Time Current Smoking Status Comment Facil ity Jul 29, 2024 11:00 AM VA-TOBACCO FORMER USER [place] Tobacco Use History This section includes a history of the smoking, or tobacco-related health factors, that were collected on or before the date of the Encounter. The data comes from the [place] facility where the Encounter took place. Date/Time Smoking Status/Tobacco Use Comment F acility Jul 29, 2024 11:00 AM VA-TOBACCO QUIT 5 TO < 15 YRS [place] Jun 10, 2023 03:30 PM VA-TOBACCO FORMER USER [place] Jun 10, 2023 03:30 PM VA-TOBACCO QUIT 1 TO < 5 YRS [place] Jul 09, 2022 03:30 PM VA-TOBACCO FORMER USER [place] Jul 09, 2022 03:30 PM VA-TOBACCO QUIT 15 YRS OR MORE [place] Jun 08, 2021 09:00 AM VA-TOBACCO FORMER USER [place] Jun 08, 2021 09:00 AM VA-TOBACCO QUIT < 1 YEAR [place] Jun 20, 2020 09:38 AM VA-TOBACCO FORMER USER [place] Jun 20, 2020 09:38 AM VA-TOBACCO QUIT 5 TO < 15 YRS [place] Feb 10, 2019 06:20 PM VA-TOBACCO DOESNT USE WI 30 MIN WAKEUP [place] Feb 10, 2019 06:20 PM VA-TOBACCO USE 30 YEARS OR MORE [place] Feb 10, 2019 06:20 PM VA-TOBACCO USE ADVICE [place] Feb 10, 2019 06:20 PM VA-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 Mar 19, 2016 10:33 AM V1-PT NOT INTEREST ED IN QUIT TOBACCO USE [place] Feb 07, 2016 09:06 AM CURRENT SMOKER States he smokes cigars every couple of days [place] Dec 06, 2014 09:39 AM [facility] Oct 29, 2013 08:14 AM V1-PT DECLINES REF TO TOBACCO CESS PRGM [place] Oct 29, 2013 08:14 AM V1-PT READY TO ROSANGELA T TOBACCO USE [place] May 20, 2013 09:56 AM QUIT TOBACCO USE IN PAST YEAR [place] Nov 12, 2012 08:56 AM V1-PT DECLINES REF TO TOBACCO CESS [facility] [place] Nov 12, 2012 08:56 AM V1-PT DECLINES TOB ACCO CESSATION [facility] Nov 12, 2012 08:56 AM V1-PT THINKING ABO UT QUIT TOBACCO USE [place] Aug 12, 2012 08:38 AM CURRENT SMOKER 4-5cigars/d [place] Aug 05, 2011 11:00 AM CURRENT SMOKER Pt. smikes 1 cigar a day! [place] Aug 05, 2011 11:00 AM V1-PT DECLINES REF TO TOBACCO CESS [facility] Aug 05, 2011 11:00 AM V1-PT DECLINES TOB ACCO CESSATION [facility] Aug 05, 2011 11:00 AM V1-PT THINKING ABO UT QUIT TOBACCO USE [place] Sep 27, 2010 08:35 AM V1-PT DECLINES REF TO TOBACCO CESS [facility] Sep 27, 2010 08:35 AM V1-PT READY TO ROSANGELA T TOBACCO USE [place] April 03, 2010 02:39 PM QUIT TOBACCO USE IN PAST YEAR [place] Encounter Notes: All associated encounter notes This section contains the clinical notes associated to the Encounter. Date/Time Encounter Note(s) Provider Source Feb 15, 2025 10:54 AM SOCIAL WORK NOTE: LOCAL TITLE: SOCIAL WORK NOTE STANDARD TITLE: SOCIAL WORK NOTE DATE OF NOTE: FEB 15, 2025@10:54 ENTRY DATE: FEB 15, 2025@10:55:01 AUTHOR: HUNTER OSULLIVAN EXP COSIGNER: ANDREI MILLER URGENCY: STATUS: COMPLETED INFORMED CONSENT REVIEWED: At beginning of session reviewed rights and limits of confidentiality, mandatory reporting situations, duty to warn and protect, [place] Warning, (if treatment team finds patient to be an acute danger to himself or others, that this information could be relayed to a court of law and presented to a reheater), and DOD access for active duty service members. Provided Suicide Prevention Hotline number, and other contact numbers as necessary. VISIT DURATION 60 minutes DIAGNOSES: PTSD, chronic [employer] STATEMENT OF GOALS/CONCERNS: I've been seeing a therapist at the [facility] for years for my PTSD but [...] though I liked my therapist at the [facility], it got to where he never asked me about my symptoms and we never worked on them, but I've been getting worse all the while. 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 [place] reports depression, lethargy, and physical pain in his body. stated that with his also in treatment for cancer that they are having trouble making their daily lives feel fulfillilng. [place] and Core Sticker discussed options to address his racing/uncomfortable thoughts while in a reduced mobility state. INTERVENTIONS: Psychotherapeutic Interventions: Validating, active listening, reflecting [...] Denies current suicidal/homicidal ideation PLAN FOR FOLLOW-UP: RTC March, follow up on meditation and recovery. This case is supervised by LOUIS Pardo. Diagnosis, treatment plan, and response to care are reviewed in standard 1-hour, or more, weekly individual supervision /oscar/ HUNTER OSULLIVAN BEHAVIORIST Signed: 02/15/2025 10:58 /oscar/ LOUIS PARDO Rubber Goods Tester Mental Health Cosigned: 02/15/2025 11:36 HUNTER OSULLIVAN [place]
--- OUTSIDE RECORDS SUMMARY | 2025-03-03 12:13 | XMS_ITS | Encounter Summary ---
Author Name [facility] [place] [facility] [place] Address [address] [place] [address] Care Team Providers Care Circular Knitter Name Role Phone FRANCO CAMPBELL Primary Care [...] PART A Nov 24, 2010 PART A [id number] SOLOMONROHINI CHARD PATIENT MEDICARE (WNR) MEDICARE (M) PART A Nov 24, 2010 PART A [id number] SOLOMON,ROHINI CHARD PATIENT MEDICARE (WNR) MEDICARE (M) PART A Nov 24, 2008 PART A [id number] 56A SOLOMON,ROHINI CHARD PATIENT MEDICARE (WNR) MEDICARE (M) PART A Nov 24, 2008 PART A [id number] ROHINI CABRAJAL PATIENT Selected Encounter This section includes the [place] for the Encounter. Date/Time Encounter Type Encounter Description Reason Provider Source Mar 03, 2025 04:13 PM NQHP OL DIG ASSMT&MGMT 5-10 PULMONARY/CHEST ICD-10-CM Z12.2 Encntr screen for malignant neoplasm of respiratory organs DELORIS JULIEN IHE Encounter Template Text not used by [facility] Assessments - Encounter Diagnoses This section includes the primary and secondary diagnoses documented for the Encounter. Date/Time Primary/Secondary Diagnosis Diagnosis Name Provider Source Mar 03, 2025 04:20 PM PRIMARY Encntr screen for malignant neoplasm of respiratory organs DELORIS JULIEN [place] [facility] [facility] Plan of Treatment: Future Appointments (+ 6 months) and Future Tests (+/- 45 days) The Plan of Treatment section includes future care activities for the [place] from all [place] treatmentfacilities. This section includes future appointments and future orders which are active, pending or scheduled. Future Appointments This section includes appointments that were scheduled to occur 6 months from the date of the Encounter, up to a maximum of 20 appointments. The data comes from all [place] treatment facilities. Appointment Date/Time Appointment Type Appointme nt Facility Name Mar 15, 2025 11:30 AM [facility] March 24, 2025 10:00 AM AMBUL[place]ORY [place] [facility] [facility] April 22, 2025 02:30 PM AMBULATORY - MEDICINE [facility] May 03, 2025 11:00 AM AMBULATORY - PS[facility]CHIATRY [facility] Jun 01, 2025 03:00 PM AMBULATORY - REHAB MEDICIN [place] [facility] [place] [facility] Jun 08, 2025 08:00 AM AMBULATORY - [place]IC[place] [facility] [facility] Jun 16, 2025 11:00 AM AMBULATORY - [place]AT[place] [facility] [place] [facility] Jul 20, 2025 03:00 PM AM[facility]ULATORY - MEDICINE [facility] Jul 28, 2025 09:00 AM AM[place]ULATORY [place] [facility] [facility] Aug 19, 2025 02:30 PM [facility] Aug 25, 2025 11:00 AM AMBUL[place]ORY [place] [facility] [place] [facility] Social History: Smoking Status (Most current) and Tobacco Use (All prior to encounter date) This section includes the most current, and the historical, smoking and tobacco- related health factors from the [place] facility where the Encounter took place. Current Smoking Status This section includes the most current smoking, or tobacco-related health factor, from the [place] facility where the Encounter took place. Date/Time Current Smoking Status Comment [place] ity May 26, 2012 03:48 PM V1-PT DECLINES TOB ACCO CESSATION MEDS [facility] Tobacco Use History This section includes a history of the smoking, or tobacco-related health factors, that were collected on or before the date of the Encounter. The data comes from the [place] facility where the Encounter took place. Date/Time Smoking Status/Tobacco Use Comment F acility May 26, 2012 03:48 PM V1-PT NOT INTEREST ED IN QUIT TOBACCO USE [facility] Encounter Notes: All associated encounter notes This section contains the clinical notes associated to the Encounter. Date/Time Encounter Note(s) Provider Source Mar 03, 2025 04:13 PM PREVENTIVE MEDICINE RISK ASSESSMENT SCREENING NOTE: LOCAL TITLE: LUNG CANCER SCREENING DOCUMENTATION STANDARD TITLE: PREVENTIVE MEDICINE RISK ASSESSMENT SCREENING NO DATE OF NOTE: MAR 03, 2025@16:13 ENTRY DATE: MAR 03, 2025@16:13:37 AUTHOR: DAWIT JULIENIGNER: URGENCY: STATUS: COMPLETED had an Outside CT Chest Angio completed at [facility] on 11/15/24. Outside images were received and uploaded. Radiologist, Dr. Nevarez, reviewed outside study, advised no nodules noted, and recommended to retime [place]'s annual LCS LDCT to 10/2025. The following documentation serves to retime 's annual LCS LDCT scan on the [facility] LCS tracking tool: Date of most recent follow-up image: Date: November 15, 2024 The diagnostic evaluation determined: OUTSIDE CT Chest Angio completed on 11/15/2024 at [facility]. (see [place] for report) Procedures completed during evaluation: CT (other than LDCT) Plan: Continue routine annual lung cancer screening. Patient Notification of results: Patient contacted by telephone. Left message on voicemail, identifying as LCS nurse, advised as per prior conversaton with [place], the outside images were received, and that our Radiologist reviewed, and recommendation is to retime annual LCS LDCT scan to 10/2025. Communicated to Primary Care Provider via TEAMs and as second signer in CPRS. LCS LDCT order placed for 11/15/2025, held for PCP signature. /oscar/ CODY TUCKERN,RN. LUNG CANCER SCREENING NURSE Signed: 03/03/2025 16:20 Receipt Acknowledged By: 03/04/2025 08:02 /oscar/ RAOUL MCKEON, SEO ENGINEER-C CERTIFIED NURSE PRACTITIONER DAWIT JULIEN [facility]
--- OUTSIDE RECORDS SUMMARY | 2025-03-15 07:30 | XMS_ITS | Encounter Summary ---
Author Name [facility] [place] [facility] [place] [facility] [place] Address [address] [place] [address] Care Team Providers Care Wash Tub Machine Operator Name Role Phone PAULINA CAMPBELL Primary Care Provider Unavail able Insurance [...] PART A Nov 24, 2010 PART A [id number] [phone] ROHINI CARBAJAL CHARD PATIENT MEDICARE (WNR) MEDICARE (M) PART A Nov 24, 2010 PART A [id number] SOLOMON,ROHINI CHARD PATIENT MEDICARE (WNR) MEDICARE (M) PART A Nov 24, 2008 PART A [id number] [phone] SOLOMON,ROHINI CHARD PATIENT MEDICARE (WNR) MEDICARE (M) PART A Nov 24, 2008 PART A [id number] SOLOMONROHINI PATIENT Selected Encounter This section includes the information on record at [place] for the Encounter. Date/Time Encounter Type Encounter Description Reason Provider Source Mar 15, 2025 11:30 AM OFFICE O/P EST MOD 30 MIN PRIMARY CARE/MEDICINE ICD-10-CM R73.03 Prediabetes ROBYNRAMIROBALA PRATTCINTHIA WONG Axel [place] Encounter Template Text not used by [place] Assessments - Encounter Diagnoses This section includes the primary and secondary diagnoses documented for the Encounter. Date/Time Primary/Secondary Diagnosis Diagnosis Name Provider Source April 01, 2025 03:57 PM PRIMARY Prediabetes RODERICK CAMPBELL Axel [place] April 01, 2025 03:57 PM SECONDARY Chronic kidney disease, stage 3 unspecified RODERICK CAMPBELL Axel [place] April 01, 2025 03:57 PM SECONDARY Gastro-esophageal reflux disease without esophagitis RODERICK CAMPBELL Axel [place] April 01, 2025 03:57 PM SECONDARY Intervertebral disc disorders w radiculopathy, lumbar region RODERICK CAMPBELL Axel [place] April 01, 2025 03:57 PM SECONDARY Neuralgia and neuritis, unspecified RODERICK CAMPBELL Axel [place] April 01, 2025 03:57 PM SECONDARY Obesity, unspecified ADRIANBALACINTHIA WONG [facility] Plan of Treatment: Future Appointments (+ 6 months) and Future Tests (+/- 45 days) The Plan of Treatment section includes future care activities for the patient from all [place] treatmentfacilities. This section includes future appointments and future orders which are active, pending or scheduled. Future Appointments This section includes appointments that were scheduled to occur 6 months from the date of the Encounter, up to a maximum of 20 appointments. The data comes from all [place] treatment facilities. Appointment Date/Time Appointment Type Appointme nt Facility Name March 24, 2025 10:00 AM [place] [facility] [place] [facility] April 22, 2025 02:30 PM AMBULATORY - MEDICINE [facility] May 03, 2025 11:00 AM AMBULATORY - PSYCHIATRY [facility] Jun 01, 2025 03:00 PM [facility] [place] [facility] Jun 08, 2025 08:00 AM AM[facility]ULATORY [facility]IC[facility] [place] [facility] Jun 16, 2025 11:00 AM [facility] [place] [facility] Jul 20, 2025 03:00 PM AM[facility]ORY - MEDICINE [facility] Jul 28, 2025 09:00 AM AM[facility]ULATORY [facility] MEDICINE [facility] Aug 19, 2025 02:30 PM AMBULATORY - MEDICINE [facility] Aug 25, 2025 11:00 AM [place] [facility] Vital Signs: All taken on the encounter date This section contains inpatient and outpatient Vital Signs collected on the date of the Encounter. Date/Time Temperature Pulse Blood Pressure Respiratory Rate SP02 Pain Height Weight Body Mass Index Source Mar 15, 2025 11:51 AM 82 123/76 95 200 32 [facility] Social History: Smoking Status (Most current) and Tobacco Use (All prior to encounter date) This section includes the most current, and the historical, smoking and tobacco- related health factors from the [place] facility where the Encounter took place. Current Smoking Status This section includes the most current smoking, or tobacco-related health factor, from the [place] facility where the Encounter took place. Date/Time Current Smoking Status Comment Facil ity Jul 29, 2024 11:00 AM VA-TOBACCO FORMER USER [place] Tobacco Use History This section includes a history of the smoking, or tobacco-related health factors, that were collected on or before the date of the Encounter. The data comes from the [place] facility where the Encounter took place. Date/Time Smoking Status/Tobacco Use Comment F acility Jul 29, 2024 11:00 AM VA-TOBACCO QUIT 5 TO < 15 YRS [place] Jun 10, 2023 03:30 PM VA-TOBACCO FORMER USER [place] Jun 10, 2023 03:30 PM VA-TOBACCO QUIT 1 TO < 5 YRS [place] Jul 09, 2022 03:30 PM VA-TOBACCO FORMER USER [place] Jul 09, 2022 03:30 PM VA-TOBACCO QUIT 15 YRS OR MORE [place] Jun 08, 2021 09:00 AM VA-TOBACCO FORMER USER [place] Jun 08, 2021 09:00 AM VA-TOBACCO QUIT < 1 YEAR [place] Jun 20, 2020 09:38 AM VA-TOBACCO FORMER USER [place] Jun 20, 2020 09:38 AM VA-TOBACCO QUIT 5 TO < 15 YRS [place] Feb 10, 2019 06:20 PM VA-TOBACCO DOESNT USE WI 30 MIN WAKEUP [place] Feb 10, 2019 06:20 PM VA-TOBACCO USE 30 YEARS OR MORE [place] Feb 10, 2019 06:20 PM VA-TOBACCO USE ADVICE [place] Feb 10, 2019 06:20 PM VA-TOBACCO USE ASSISTIVE TECHNOLOGY SPECIALIST NO [place] Feb 10, 2019 06:20 PM VA-TOBACCO USE MED NO [place] Feb 10, 2019 06:20 PM VA-TOBACCO USER SOME DAYS [place] Mar 05, 2018 08:47 AM QUIT TOBACCO USE 1 -7 YEARS AGO [place] Oct 07, 2017 02:29 PM QUIT TOBACCO USE IN PAST YEAR [place] March 27, 2017 02:09 PM QUIT TOBACCO USE IN PAST Y EAR cigars [place] Dec 04, 2016 02:35 PM [facility] Mar 19, 2016 10:33 AM V1-PT NOT INTEREST ED IN QUIT TOBACCO USE [place] Feb 07, 2016 09:06 AM CURRENT SMOKER States he smokes cigars every couple of days [place] Dec 06, 2014 09:39 AM CURRENT SMOKER [facility] Oct 29, 2013 08:14 AM V1-PT DECLINES REF TO TOBACCO CESS [facility] Oct 29, 2013 08:14 AM V1-PT READY TO ROSANGELA T TOBACCO USE [place] May 20, 2013 09:56 AM QUIT TOBACCO USE IN PAST YEAR [place] Nov 12, 2012 08:56 AM V1-PT DECLINES REF TO TOBACCO CESS [facility] Nov 12, 2012 08:56 AM V1-PT DECLINES TOB ACCO CESSATION [facility] Nov 12, 2012 08:56 AM V1-PT THINKING ABO UT QUIT TOBACCO USE [place] Aug 12, 2012 08:38 AM CURRENT SMOKER 4-5cigars/d [place] Aug 05, 2011 11:00 AM CURRENT SMOKER Pt. smikes 1 cigar a day! [place] Aug 05, 2011 11:00 AM V1-PT DECLINES REF TO TOBACCO CESS [facility] Aug 05, 2011 11:00 AM V1-PT DECLINES TOB ACCO CESSATION [facility] Aug 05, 2011 11:00 AM V1-PT THINKING ABO UT QUIT TOBACCO USE [place] Sep 27, 2010 08:35 AM V1-PT DECLINES REF TO TOBACCO CESS [facility] Sep 27, 2010 08:35 AM V1-PT READY TO ROSANGELA T TOBACCO USE [place] April 03, 2010 02:39 PM QUIT TOBACCO USE IN PAST YEAR [place] Radiology Reports: +/- 30 days of the [...] the Encounter. The data comes from all [place] treatment facilities. Date/Time Radiology Report Provider Source April 14, 2025 12:07 PM SPINE LUMBOSACRAL MIN 2 VIEWS: CAMACHO CARBAJAL [id number] -[id number] M Ex Date: APRIL 14, 2025@12:07 Req Phys: JOSE DAVID RIVERA Loc: [facility] PACT EIGHT MD [place] (Req'g Lo Img Loc: [facility] 1 Service: [facility] [place] [address] (Case [id number] COMPLETE) SPINE LUMBOSACRAL MIN 2 VIEWS (RAD Detailed) CPT:71865 Reason for Study: chronic LBP with right sided [id number]. Clinical History: Covering resident, fellow, SUPERVISOR LANDSCAPE or attending: Greg Moore [place] Pager: [phone] [id number] Backup pager: History: chronic LBP with right sided [id number]. s/p PT, Accupucncture, CS Inj pending neurosurgical evaluation. Report Status: Verified Date Reported: APRIL 14, 2025 Date Verified: APRIL 14, 2025 Airplane Navigator E-Sig:/ES/DORYS HERNANDEZ JR Report: Study: AP, lateral and magnified lateral views of the lumbar spine. Comparison: Lumbar spine radiographs from May 26, 2023 Findings: The patient is status post interval aortic endovascular biiliac stent graft placement with stents single bilateral renal artery stents. There are 5 lumbar vertebral bodies. There is intervertebral disc space narrowing, vertebral endplate sclerosis and anterior osteophytosis throughout the visualized thoracic and the entire lumbar spine consistent with degenerative disc disease. This is stable and moderate in degree and is most prominent at the L4-L5 level with new grade 1 anterolisthesis of L4 on L5 present with overall stable straightening of the normal lumbar lordosis again seen along with a mild stable lumbar dextroscoliotic curvatureThe vertebral heights are normal. There is moderate diffuse facet joint hypertrophic change. The bony mineralization is normal. No bony fracture, dislocation or subluxation is identified. The visualized sacrum is normal and the visualized sacroiliac joints are normal for age. Impression: Multilevel degenerative changes to the lumbar spine, as described above. Primary Diagnostic Code: No immediate attention required Primary Interpreting Staff: DORYS HERNANDEZ JR, Radiologist (Airplane Navigator) /DORYS ROBERTS JR [facility] Encounter Notes: All associated encounter notes This section contains the clinical notes associated to the Encounter. Date/Time Encounter Note(s) Provider Source Mar 15, 2025 03:35 PM PHYSICIAN NOTE: LOCAL TITLE: MD NOTE STANDARD TITLE: PHYSICIAN NOTE DATE OF NOTE: MAR 15, 2025@15:35 ENTRY DATE: APRIL 01, 2025@15:35:46 AUTHOR: PAULINA CAMPBELL EXP COSIGNER: URGENCY: STATUS: COMPLETED Chief complaint:Pt is a 79 year old who comes in for follow up of medical problems as noted below. PMH: Active problems - Computerized Problem List is the source for the followin. Prediabetes 07/15/24 A1c 5.6 11/15/24 A1c 5.9 2. CKD stage 3 07/15/24 GFR 54 11/15/24 GFR 51 3. Bilateral hearing loss 4. Emphysema of lung 5. Former smoker 6. Radiculopathy due to lumbar intervertebral disc disorder gets x0ghjli injections - [facility] 7. Providers Urology vascular surgery Dr. Eugene Marques cardiology Dr. Andrey Stringer Ortho - [facility] Primary Care: Juwan Hogan 8. History of right total knee replacement 10/09/22 - Dr Eastman/[facility] 9. Solitary nodule of lung 01/26/2024 screening LDCT - no mention of nodule, + emphysema 02/14/[address] - left upper lobe 3.6mm 02/14/[address] - left upper lobe nodule 3.6mm 10. Obstructive sleep apnea cpap Home Sleep Study completed 12/13/21 - diagnosed as Moderate 11. Thoracic aortic aneurysm without rupture (SNOMED CT [id number]) 07/29/24 increased in size to 4.3cm 11/15/24 TAA measures 2.4x2.6cm 02/14/22 CT Chest: 3.7cm - repeat surveillance 1 year 02/14/23 CT Chest: no significant interval change - repeat 1 year 12. Mild cognitive impairment 13. Abdominal aortic aneurysm 08/03/20 - incidental fiinding on CT Abd @ [facility] - 3.9cm infrarenal - recommend f/u by U/S or CTA in 3 yrs 05/03/24 AAA increased to 4.7cm followed by vascular surgery 11/15/24 AAA measures 5.1cm 02/14/22 U/S - 4.3 cm (was 2.9cm in 02/08/11) - repeat surveillance in 1 year 02/14/23 U/S - 4.1 cm distal AAA - repeat 6 mths 14. Obesity 07/29/24 BMI 32 11/05/24 BMI 33 15. Benign prostatic hypertrophy 16. Restless legs syndrome 17. Constipation 18. Peripheral neuropathic pain 19. Gastroesophageal reflux disease 20. Depression (SNOMED CT [id number]) 21. Colonoscopy Screening 2005 +polyps 11/2014 - no polyps, mild sigmoid tics 10/02/21 Dr. Hill Saeed No change Reported, Spoke to Helen @ Dr. Alejandre no furthur screening due to age 22. Hyperlipidemia (SNOMED CT 60204262) 11/15/24 lipids wnl 23. Hypothyroidism (SNOMED CT 76032983) 07/15/24 TSH .74 11/15/24 TSH 0.87 24. Posttraumatic stress disorder (SNOMED CT 16146115) Allergies: Patient has answered NKA The following VA and Non-VA meds were reconciled with patient: Active and Recently Outpatient Medications (excluding Supplies): Active Outpatient Medications Status 1) DULOXETINE HCL 60MG EC CAP TAKE ONE CAPSULE BY MOUTH ONCE ACTIVE DAILY Indication: FOR MAJOR DEPRESSIVE DISORDER 2) GABAPENTIN 100MG CAP TAKE TWO CAPSULES BY MOUTH TWICE DAILY ACTIVE Indication: FOR NERVE PAIN 3) LEVOTHYROXINE NA 125MCG TAB TAKE ONE TABLET BY MOUTH EVERY ACTIVE (S) MORNING 30 MINUTES BEFORE BREAKFAST FOR THYROID - TAKE ON AN EMPTY STOMACH WITH A FULL GLASS OF WATER 4) LIDOCAINE 5% PATCH APPLY 1 PATCH TOPICALLY EVERY 24 HOURS ACTIVE (LEAVE PATCH ON FOR 12 HOURS, THEN REMOVE PATCH) Indication: FOR LOW BACK PAIN 5) LORAZEPAM 0.5MG TAB TAKE ONE TABLET BY MOUTH TWICE DAILY ACTIVE Indication: FOR ANXIETY 6) OMEPRAZOLE 20MG EC CAP TAKE ONE CAPSULE BY MOUTH EVERY ACTIVE (S) MORNING 30 MINUTES BEFORE BREAKFAST Indication: FOR GASTROESOPHAGEAL REFLUX DISEASE 7) PAROXETINE HCL 10MG TAB TAKE ONE TABLET BY MOUTH AT BEDTIME ACTIVE FOR MOOD Indication: FOR MAJOR DEPRESSIVE DISORDER 8) QUETIAPINE FUMARATE 25MG TAB TAKE ONE TABLET BY MOUTH AT ACTIVE (S) BEDTIME (MAY TAKE TWO TABLETS IF NEEDED) Indication: NIGHTMARES 9) ROSUVASTATIN CA 40MG TAB TAKE ONE TABLET BY MOUTH ONCE DAILY ACTIVE (S) FOR CHOLESTEROL Indication: FOR HIGH CHOLESTEROL 10) TRAMADOL HCL 50MG TAB TAKE ONE TABLET BY MOUTH ONCE DAILY ACTIVE NEEDED Indication: FOR PAIN 11) ZOLPIDEM TARTRATE 5MG TAB TAKE ONE TABLET BY MOUTH AT ACTIVE BEDTIME NEEDED FOR SLEEP Inactive Outpatient Medications Status 1) PEG 400 0.4%/PROP GLYCOL 0.3% OPH SOLN INSTILL 1 DROP INTO EACH EYE FOUR TIMES DAILY NEEDED Indication: FOR DRY EYE Active Non-VA Medications Status 1) Non-VA OTHER CAP/TAB HYALURONIC ACID BY MOUTH ONCE DAILY ACTIVE 13 Total Medications No Active Remote Medications for this patient On examination: 123/76 (03/15/2025 11:51)97.9 F [36.6 C] (11/05/2024 11:44)18 (11/05/2024 11:44)82 (03/15/2025 11:51)0 (04/16/2024 14:14)X3 BMI: 32.3200 lb [90.72 kg] (03/15/2025 11:51) CC: 3 Mo f/u , Last Seen in PCP: Jul 2024 HPI: 79 y/o M with PMH of HLD, TAA, AAA, GERD, BPH, urinary incontinence, CKD3, hypothyroidism, MDD, Anxiety, PTSD, SOURAV on CPAP, LBP with radiculopathy, obesity came to clinic today for F2F visit. This is 1st visit with the by this PCP. [facility] is still complaining of his long low back pain right side mostly. Pain radiates to his right leg and has a pain intermittent all day every day. Asked to see medication refills for pain and increased dose of gabapentin [facility] also asked if he is a candidate for Ozempic Needs meds refilled. Pt denies any recent travel, sick contacts, fever, chills, cough, palpitations, CP, SOB, SOSA, numbness, tingling, weakness, dizziness, abd pain, N/V/D, dysuria, constipation, LE edema, BW changes. No changes in ET, can walk 4+ blocks, can climb 1-2 flight of stairs, denies any orthopnea, PND. Pt is compliant with medications. ROS: as mentioned in HPI PSH: R TKR SH: quit smoking ; rare alcohol; denies drug use; lives with FH: [place] Outside PCP: yes Dr Juwan Hogan PE: GA: AOx3, elderly male, in NAD, pleasant, HEENT: NC/AT, MMM; Neck: supple, no LNs, no JVD; HRT: normal S1/S2, no MRGs Chest: CTA b/l normal breath sounds, no wheezing Abd: soft, NTTP, BS+ Extremities: no leg edema, no cyanosis b/l , PPP; Labs : No new labs Imaging/Tests: none Assessment/Plan: LBP with radiculopathy: Followed by outside neurosurgery Dr. Lakhani, Increase gabapentin to 200 mg twice daily, refilled On tramadol 50 mg daily as needed refilled Obesity: BMI 32, no big change is not diabetic any [facility] is not eligible for GLP-1 agonists HLD, TAA, AAA: f/b outside cardiology and vascular Blood pressure well-controlled No new LDL on rosuvastatin 40 : GERD: Stable on PPI On omeprazole 20 mg BPH, urinary incontinence: Followed by the outside Stable no issues Hypothyroidism: TSH at goal continue with levothyroxine 125 mcg CKD3: GFR 51, mild stable Pre DM: A1c 5.9 stable Counseled on diet Records reviewed. New labs, imaging reviewed, discussed, questions answered. Meds refilled. verbalized understanding of the plan and agreed to it. Patient follows with non-VA providers and defers to them for medications management and management of chronic conditions. [facility] HM: Colonoscopy: Did not discuss today RTC 6 mo or sooner PRN F2F visit Fasting labs prior Addendum: PACT 8 TEAM: Alert to PACT Nurses - Labs as necessary to address clinical status. See RTC above Narrative of this note is partially produced using [employer] voice recognition software. Some errors in words, composition, structure are possible. Medication Reconciliation: Outpatient: Has the patient been taking medications as documented in the EMLR? YES: The patient has been taking medications as documented in the EMLR. Essential Medication List for Review used to complete this medication reconciliation. INCLUDED IN THIS LIST: Alphabetical list of active outpatient prescriptions dispensed from this [place] (local) and dispensed from another [place] or [place] facility (remote) as well as [...] with a VA or non-VA provider. /oscar/ Paulina Campbell MD MD PRIMARY CARE PHYSICIAN Signed: 04/01/2025 15:57 PAULINA CAMPBELL [place] Mar 15, 2025 11:51 AM PREVENTIVE MEDICIN E NURSING NOTE: LOCAL TITLE: CLINICAL REMINDERS/NURSING STANDARD TITLE: PREVENTIVE MEDICINE NURSING NOTE DATE OF NOTE: MAR 15, 2025@11:51 ENTRY DATE: MAR 15, 2025@11:51:45 AUTHOR: ZULEMA STAN[place]ORD COSIGNER: URGENCY: STATUS: COMPLETED Homelessness/Food Insecurity Screen: In the past 2 months, have you been living in stable housing that you own, rent, or stay in as part of a household? Yes - Living in stable housing. Are you worried or concerned that in the next 2 months you may NOT have stable housing that you own, rent, or stay in as part of a household? No - Not worried about housing near future The [facility] reports the following: Within the past 12 months, you worried whether your food would run out before you got money to buy more. Never true Within the past 12 months, the food you bought just didn't last and you didn't have money to get more. Never true RHS Screen: RHS Screen Environmental Check Upon inquiry, the individual reports that the environment is safe to proceed. Informed Consent to Screen and Document The individual consents to proceed with screening. The individual consents to documentation of responses. PRIMARY SCREEN: In the past 12 months, how often did a current or former intimate partner (e.g., boyfriend, girlfriend, , , sexual partner): 1. Scream or curse at you Never 2. Insult or talk down to you Never 3. Threaten you with harm Never 4. Physically hurt you Never 5. Force or pressure you to have sexual contact against your will, or when you were unable to say no Never The HITS tool (items 1-4 above) is [place] copyright protected by Antwon Eckert MD, and the user has full rights to use it throughout the [place] system. PRIMARY SCREEN RESULT: The Primary Screen is NEGATIVE. The individual answered never to all forms of IPV above (i.e., answered never to all 5 items) The individual accepts education and/or resources: No EDUCATION: The individual indicated readiness to learn. Education offered during this session as noted above. The individual indicated understanding by asking relevant questions and making appropriate comments. No barriers to learning were observed or identified. /oscar/ ZULEMA STANFORD LPN Licensed Practical Nurse Signed: 03/15/2025 11:52 ZULEMA [place]
--- OUTSIDE RECORDS SUMMARY | 2025-03-21 18:23 | XMS_ITS ---
Author Name [facility] [place] [facility] [place] Organization [facility] [place] Address [address] [place] [address] Care Team Providers Care Mapping Specialist Name Role Phone MACIFRANCO PRATT Primary Care Provider Unavail able Insurance Providers: [...] PART A Nov 24, 2010 PART A [id number] SOLOMONROHINI CHARD PATIENT MEDICARE (WNR) MEDICARE (M) PART A Nov 24, 2010 PART A [id number] [phone] SOLOMON,ROHINI CHARD PATIENT MEDICARE (WNR) MEDICARE (M) PART A Nov 24, 2008 PART A [id number] [phone] SOLOMONROHINI CHARD PATIENT MEDICARE (WNR) MEDICARE (M) PART A Nov 24, 2008 PART A [id number] ROHINI CARBAJAL PATIENT Selected Encounter This section includes the information on record at [place] for the Encounter. Date/Time Encounter Type Encounter Description Reason Pro vider Source Mar 21, 2025 10:23 PM Outpatient Encounter ADMIN PAT ACTIVTIES (MASNONCT) IHE Encounter Template Text not used by [place] Plan of Treatment: Future Appointments (+ 6 months) and Future Tests (+/- 45 days) The Plan of Treatment section includes future care activities for the patient from all [place] treatmentfacilities. This section includes future appointments and future orders which are active, pending or scheduled. Future Appointments This section includes appointments that were scheduled to occur 6 months from the date of the Encounter, up to a maximum of 20 appointments. The data comes from all [facility]. Appointment Date/Time Appointment Type Appointme nt Facility Name March 24, 2025 10:00 AM [facility] April 22, 2025 02:30 PM AMBULATORY - MEDICINE [facility] May 03, 2025 11:00 AM AMBULATORY - PSYCHIATRY [facility] Jun 01, 2025 03:00 PM [facility] Jun 08, 2025 08:00 AM [facility] Jun 16, 2025 11:00 AM [facility] Jul 20, 2025 03:00 PM [facility] - [facility]IC[facility] Jul 28, 2025 09:00 AM [facility] - [facility]IC[facility] Aug 19, 2025 02:30 PM [facility] Aug 25, 2025 11:00 AM [facility] Sep 15, 2025 11:00 AM AMBULATORY - MEDICINE [facility] Active, Pending, and Scheduled Orders This section includes a listing of several types of active, pending, and scheduled orders, including clinic medications orders, diagnostic test orders, procedure orders and consult orders; where the start date of the order is 45 days before the date of the Encounter or 45 days after the date of theEncounter. The data comes from all [facility]. 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 The data comes from the [place] facility where the Encounter took place. Date/Time Smoking Status/Tobacco Use Comment F acility May 26, 2012 03:48 PM V1-PT NOT INTEREST ED IN QUIT TOBACCO USE [facility] Radiology Reports: +/- 30 days of the [...] the Encounter. The data comes from all [place] treatment facilities. Date/Time Radiology Report Provider Source April 14, 2025 12:07 PM SPINE LUMBOSACRAL MIN 2 VIEWS: SOLOMONCAMACHO [id number] -1945 M Ex Date: APRIL 14, 2025@12:07 Req Phys: JOSE DAVID RIVERA Loc: [facility] EIGHT (Req'g Lo Img Loc: [facility] Service: [facility] [place] [address] (Case [id number] COMPLETE) SPINE LUMBOSACRAL MIN 2 VIEWS (RAD Detailed) CPT:68929 Reason for Study: chronic LBP with right sided [id number]. Clinical History: Covering resident, fellow, MANAGER PRINT or attending: Greg Moore [place] Pager: [phone] [id number] Backup pager: History: chronic LBP with right sided [id number]. s/p PT, Accupucncture, CS Inj pending neurosurgical evaluation. Report Status: Verified Date Reported: APRIL 14, 2025 Date Verified: APRIL 14, 2025 Medical Assisting Instructor E-Sig:/ES/DORYS HERNANDEZ JR Report: Study: AP, lateral [...] Primary Interpreting Staff: DORYS HERNANDEZ JR, Radiologist (Medical Assisting Instructor) /DORYS ROBERTS JR [facility] Encounter Notes: All associated encounter notes This section contains the clinical notes associated to the Encounter. Date/Time Encounter Note(s) Provider Source Mar 21, 2025 10:23 PM PHARMACY NOTE: LOCAL TITLE: V1 PHARMACY CUSTOMER CARE MEDICATION RENEWAL STANDARD TITLE: PHARMACY NOTE DATE OF NOTE: MAR 21, 2025@22:23 ENTRY DATE: MAR 21, 2025@22:23:59 AUTHOR: GREG TEJEDA COSIGNER: URGENCY: STATUS: COMPLETED Date: Feb Division: [place] Pt referred by Pharmacy Call Center for medication renewal: Non-controlled/maintenance medication Medications requested: [id number] LEVOTHYROXINE NA 125MCG TAB Defer to primary care provider To be mailed . Please review and renew if appropriate. *This note was generated by [facility] Customer Care. If you have any questions or need assistance, do not contact this author. Please refer all questions to your local, on-site pharmacy departments. /oscar/ GREG TEJEDA CPhT Signed: 03/21/2025 22:24 Receipt Acknowledged By: 03/22/2025 08:39 /oscar/ OFELIA DAVIES CERTIFIED NURSE PRACTITIONER 03/22/2025 08:37 /oscar/ DORITA VIERA RN REGISTERED NURSE GREG TEJEDA [facility]
--- OUTSIDE RECORDS SUMMARY | 2025-04-06 10:10 | XMS_ITS ---
Author Name [facility] [place] Organization [facility] [place] Address [address] [place] [address] Care Team Providers Care Seat Pack Inspector Name Role Phone ADRIANBALASUMANTH Primary Care Provider Unavail able Insurance Providers: [...] PART A Nov 24, 2010 PART A [id number] SOLOMONROHINI CHARSaundra PATIENT MEDICARE (WNR) MEDICARE (M) PART A Nov 24, 2010 PART A [id number] SOLOMON,ROHINI TODD PATIENT MEDICARE (WNR) MEDICARE (M) PART A Nov 24, 2008 PART A [id number] SOLOMONROHINI PATIENT MEDICARE (WNR) MEDICARE (M) PART A Nov 24, 2008 PART A [id number] [phone] SOLOMONROHINI PATIENT Selected Encounter This section includes the information on record at [place] for the Encounter. Date/Time Encounter Type Encounter Description Reason Pro vider Source April 06, 2025 02:10 PM Outpatient Encounter COMMUNITY CARE CONSULT IHE Encounter Template Text not used by [place] Plan of Treatment: Future Appointments (+ 6 months) and Future Tests (+/- 45 days) The Plan of Treatment section includes future care activities for the patient [facility] [place] [facility] This section includes future appointments and future orders which are active, pending or scheduled. Future Appointments This section includes appointments that were scheduled to occur 6 months from the date of the Encounter, up to a maximum of 20 appointments. The data comes from all [place] treatment [facility]. Appointment Date/Time Appointment Type Appointme nt Facility Name April 22, 2025 02:30 PM AMBULATORY - MEDICINE [facility] May 03, 2025 11:00 AM AMBULATORY - PSYCHIATRY [facility] Jun 01, 2025 03:00 PM AMBULATORY - [facility] Jun 08, 2025 08:00 AM [facility] - [facility]IC[facility] Jun 16, 2025 11:00 AM AMBULATORY - PS[place]IATRY [facility] [place] [facility] Jul 20, 2025 03:00 PM AMBULATORY - MEDICINE [facility] Jul 28, 2025 09:00 AM AMBULATORY - MEDICINE [place] [facility] [place] [facility] Aug 19, 2025 02:30 PM AMBULATORY - MEDICINE [facility] Aug 25, 2025 11:00 AM [facility] [place] [facility] Sep 15, 2025 11:00 AM AMBULATORY - MEDICINE [facility] Active, Pending, and Scheduled Orders This section includes a listing of several types of active, pending, and scheduled orders, including clinic medications orders, diagnostic test orders, procedure orders and consult orders; where the start date of the order is 45 days before the date of the Encounter or 45 days after the date of theEncounter. The data comes from all [facility]. Test Date/Time Test Type Test Details Facility Name May 04, 2025 10:40 AM Consult Order COMMUNITY CARE-SUMMER SCHOOL COORDINATOR Cons Candy Cooker Helper's Choice [facility] Social History: Smoking Status (Most current) and Tobacco Use (All prior to encounter date) This section includes the most current, and the historical, smoking and tobacco- related health factors from the [place] facility where the Encounter took place. Current Smoking Status This section includes the most current smoking, or tobacco-related health factor, from the [place] facility where the Encounter took place. Date/Time Current Smoking Status Comment Facil ity May 26, 2012 03:48 PM V1-PT DECLINES TOB ACCO CESSATION MEDS [facility] Tobacco Use History This section includes a history of the smoking, or tobacco-related health factors, that were collected on or before the date of the Encounter. The data comes from the [place] facility where the Encounter took place. Date/Time Smoking Status/Tobacco Use Comment F acility May 26, 2012 03:48 PM V1-PT NOT INTEREST ED IN QUIT [facility]ACCO [facility] Radiology Reports: +/- 30 days of [...] the Encounter. The data comes from all [place] treatment facilities. Date/Time Radiology Report Provider Source April 14, 2025 12:07 PM SPINE LUMBOSACRAL MIN 2 VIEWS: CAMACHO CARBAJAL [id number] -[id number] M Exm Date: APRIL 14, 2025@12:07 Req Phys: JOSE DAVID RIVERA [facility] Loc: [facility] 1 Service: [place] [address] (Case [id number] COMPLETE) SPINE LUMBOSACRAL MIN 2 VIEWS (RAD Detailed) CPT:07765 Reason for Study: chronic LBP with right sided [id number]. 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 s/p PT, Accupucncture, CS Inj pending neurosurgical evaluation. Report Status: Verified Date Reported: APRIL 14, 2025 Date Verified: APRIL 14, 2025 Bond Underwriter E-Sig:/ES/DORYS HERNANDEZ JR Report: Study: AP, lateral [...] Primary Interpreting Staff: DORYS HERNANDEZ JR, Radiologist (Bond Underwriter) /DORYS ROBERTS JR [facility] Encounter Notes: All associated encounter notes This section contains the clinical notes associated to the Encounter. Date/Time Encounter Note(s) Provider Source April 06, 2025 02:10 PM ADMINISTRATIVE NOTE: LOCAL TITLE: ADMINISTRATIVE NOTE STANDARD TITLE: ADMINISTRATIVE NOTE DATE OF NOTE: APRIL 06, 2025@14:10 ENTRY DATE: APRIL 06, 2025@14:10:39 AUTHOR: ALEX SMITH EXP COSIGNER: URGENCY: STATUS: COMPLETED ADMINISTRATIVE NOTE Has ADDENDA Regarding [facility] neurosurgery consult. Last MRI was 1 year and 4 months ago. [facility] Neurosurgery is very strict about MRI within 1 year of consult. Please order MRI, either at [place] or via MRI consult. Thank you. /nancy SMITH [facility] RN Signed: 04/06/2025 14:13 Receipt Acknowledged By: 04/07/2025 19:55 /oscar/ Paulina Hernandez MD MD PRIMARY CARE PHYSICIAN 04/06/2025 15:42 /oscar/ DORITA VIERA RN REGISTERED NURSE 04/06/2025 ADDENDUM STATUS: COMPLETED MRI at [place] ordered and awaiting PCP signature. /oscar/ DORITA VIERA RN REGISTERED NURSE Signed: 04/06/2025 15:42 ALEX SMITH [facility]
--- OUTSIDE RECORDS SUMMARY | 2025-04-22 10:30 | XMS_ITS | Encounter Summary ---
Author Name [facility] Organization [facility] [place] Address [address] [place] [address] Care Team Providers Care Test Tech Name Role Phone FRANCO CAMPBELL Primary Care [...] PART A Nov 24, 2010 PART A [id number] ROHINI CARBAJAL CHARD PATIENT MEDICARE (WNR) MEDICARE (M) PART A Nov 24, 2010 PART A [id number] [phone] SOLOMON,ROHINI CHARD PATIENT MEDICARE (WNR) MEDICARE (M) PART A Nov 24, 2008 PART A [id number] [phone] SOLOMON,ROHINI CHARD PATIENT MEDICARE (WNR) MEDICARE (M) PART A Nov 24, 2008 PART A [id number] [phone] SOLOMON,ROHINI TODD PATIENT Selected Encounter This section includes the information on record at [place] for the Encounter. Date/Time Encounter Type Encounter Description Reason Provider Source April 22, 2025 02:30 PM OFFICE O/P EST LOW 20 MIN PODIATRY ICD-10-CM L60.0 Ingrowing nail THOM KAHN Cara Encounter Template Text not used by [place] Assessments - Encounter Diagnoses This section includes the primary and secondary diagnoses documented for the Encounter. Date/Time Primary/Secondary Diagnosis Diagnosis Name Provider Source April 22, 2025 02:53 PM PRIMARY Ingrowing nail FEMITHOM Banegas DANIELE April 22, 2025 02:53 PM SECONDARY Idiopathic progressive neuropathy THOM KAHN April 22, 2025 02:53 PM SECONDARY Pain in left toe(s) THOM KAHN April 22, 2025 02:53 PM SECONDARY Pain in right toe(s) THOM KAHN Plan of Treatment: Future Appointments (+ 6 months) and Future Tests (+/- 45 days) The Plan of Treatment section includes future care activities for the [facility] This section includes future appointments and future orders which are active, pending or scheduled. Future Appointments This section includes appointments that were scheduled to occur 6 months from the date of the Encounter, up to a maximum of 20 appointments. The data comes from all [place] treatment facilities. Appointment Date/Time Appointment Type Appointme nt Facility Name May 03, 2025 11:00 AM AMBULATORY - PSYCHIATRY [facility] Jun 01, 2025 03:00 PM AMBULATORY - REHAB MEDICIN [facility] [place] [facility] [place] [facility] Jun 08, 2025 08:00 AM [facility] Jun 16, 2025 11:00 AM AMBULATORY - PSYCHIATRY [facility] [place] [facility] Jul 20, 2025 03:00 PM AMBULATORY - MEDICINE [facility] Jul 28, 2025 09:00 AM AMBULATORY - MEDICINE [facility] [place] [facility] Aug 19, 2025 02:30 PM [facility] Aug 25, 2025 11:00 AM AMBULATORY - PSYCHIATRY [facility] [place] [facility] Sep 15, 2025 11:00 AM [facility] Active, Pending, and Scheduled Orders This section includes a listing of several types of active, pending, and scheduled orders, including clinic medications orders, diagnostic test orders, procedure orders and consult orders; where the start date of the order is 45 days before the date of the Encounter or 45 days after the date of theEncounter. The data comes from all [place] treatment facilities. 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 Current Smoking Status This section includes the most current smoking, or tobacco-related health factor, from the [place] facility where the Encounter took place. Date/Time Current Smoking Status Comment Facil ity Jul 29, 2024 11:00 AM VA-TOBACCO FORMER USER [facility] Tobacco Use History This section includes a history of the smoking, or tobacco-related health factors, that were collected on or before the date of the Encounter. The data comes from the [place] facility where the Encounter took place. Date/Time Smoking Status/Tobacco Use Comment F acility Jul 29, 2024 11:00 AM VA-TOBACCO QUIT 5 TO < 15 YRS [facility] Jun 10, 2023 03:30 PM VA-TOBACCO FORMER USER [facility] Jun 10, 2023 03:30 PM VA-TOBACCO QUIT 1 TO < 5 YRS [facility] Jul 09, 2022 03:30 PM VA-TOBACCO FORMER USER [facility] Jul 09, 2022 03:30 PM VA-TOBACCO QUIT 15 YRS OR MORE [facility] Jun 08, 2021 09:00 AM VA-TOBACCO FORMER USER [facility] Jun 08, 2021 09:00 AM VA-TOBACCO QUIT < 1 YEAR [facility] Jun 20, 2020 09:38 AM VA-TOBACCO FORMER USER [facility] Jun 20, 2020 09:38 AM VA-TOBACCO QUIT 5 TO < 15 YRS [facility] Feb 10, 2019 06:20 PM VA-TOBACCO DOESNT USE WI 30 MIN WAKEUP [facility] Feb 10, 2019 06:20 PM VA-TOBACCO USE 30 YEARS OR MORE [facility] Feb 10, 2019 06:20 PM VA-TOBACCO USE ADVICE [facility] Feb 10, 2019 06:20 PM VA-TOBACCO USE INTELLIGENCE OFFICER NO [facility] Feb 10, 2019 06:20 PM VA-TOBACCO USE MED NO [facility] Feb 10, 2019 06:20 PM VA-TOBACCO USER SOME DAYS [facility] Mar 05, 2018 08:47 AM QUIT TOBACCO USE 1 -7 YEARS AGO [facility] Oct 07, 2017 02:29 PM QUIT TOBACCO USE IN PAST YEAR [facility] March 27, 2017 02:09 PM QUIT TOBACCO USE IN PAST Y EAR cigars [facility] Dec 04, 2016 02:35 PM CURRENT SMOKER MAURA RODRIGUEZ Mar 19, 2016 10:33 AM V1-PT NOT INTEREST ED IN QUIT TOBACCO USE [facility] Feb 07, 2016 09:06 AM CURRENT SMOKER States he smokes cigars every couple of days [facility] Dec 06, 2014 09:39 AM CURRENT [facility] Oct 29, 2013 08:14 AM V1-PT DECLINES REF TO TOBACCO CESS [facility] Oct 29, 2013 08:14 AM V1-PT READY TO ROSANGELA T TOBACCO USE [facility] May 20, 2013 09:56 AM QUIT TOBACCO USE IN PAST YEAR [facility] Nov 12, 2012 08:56 AM V1-PT DECLINES REF TO TOBACCO CESS [facility] Nov 12, 2012 08:56 AM V1-PT DECLINES TOB ACCO CESSATION [facility] Nov 12, 2012 08:56 AM V1-PT THINKING ABO UT QUIT TOBACCO USE [facility] Aug 12, 2012 08:38 AM CURRENT SMOKER 4-5cigars/d [facility] Aug 05, 2011 11:00 AM CURRENT SMOKER Pt. smikes 1 cigar a day! [facility] Aug 05, 2011 11:00 AM V1-PT DECLINES REF TO TOBACCO CESS [facility] Aug 05, 2011 11:00 AM V1-PT DECLINES TOB ACCO CESSATION [facility] Aug 05, 2011 11:00 AM V1-PT THINKING ABO UT QUIT TOBACCO USE [facility] Sep 27, 2010 08:35 AM V1-PT DECLINES REF TO TOBACCO CESS [facility] Sep 27, 2010 08:35 AM V1-PT READY TO ROSANGELA T TOBACCO USE [facility] April 03, 2010 02:39 PM QUIT TOBACCO USE IN PAST YEAR [facility] Radiology Reports: +/- 30 days of the [...] the Encounter. The data comes from all [place] treatment facilities. Date/Time Radiology Report Provider Source April 14, 2025 12:07 PM SPINE LUMBOSACRAL MIN 2 VIEWS: CAMACHO CARBAJAL [id number] -[phone] M Ex Date: APRIL 14, 2025@12:07 Req Phys: JOSE DAVID RIVERA [facility] PA[facility] MD [place] (Req'g Lo Img Loc: [facility]ING 1 Service: Unknown [place] [address] (Case [id number] COMPLETE) SPINE LUMBOSACRAL MIN 2 VIEWS (RAD Detailed) CPT:10062 Reason for Study: chronic LBP with right sided [id number]. Clinical History: Covering resident, fellow, REBRANDER or attending: Greg Moore [place] Pager: [phone] [id number] Backup pager: History: chronic LBP with right sided [id number]. s/p PT, Accupucncture, CS Inj pending neurosurgical evaluation. Report Status: Verified Date Reported: APRIL 14, 2025 Date Verified: APRIL 14, 2025 Bingo Worker E-Sig:/ES/DORYS HERNANDEZ JR Report: Study: AP, lateral [...] Primary Interpreting Staff: DORYS HERNANDEZ JR, Radiologist (Bingo Worker) /DORYS ROBERTS JR [place] [facility] [place] [facility] Encounter Notes: All associated encounter notes This section contains the clinical notes associated to the Encounter. Date/Time Encounter Note(s) Provider Source April 22, 2025 12:46 PM PODIATRY NOTE: LOCAL TITLE: PODIATRY NOTE STANDARD TITLE: PODIATRY NOTE DATE OF NOTE: APRIL 22, 2025@12:46 ENTRY DATE: APRIL 22, 2025@12:46:20 AUTHOR: THOM KAHN COSIGNER: URGENCY: STATUS: COMPLETED NOTE: HAS RECE[facility] 12/24/2024 S: Pt. is a 79 yo alert [...] present physical-medical status. Protective sensation utilizing a Hancock-Yobani lOg monofilament is 0/10 LT and 3/10 [...] VISIT) & PATIENT AGREES AND UNDERSTANDS PLAN ( IS DOING WELL HAD HER LAST CHEMO WITH A NEW SURGEON ANDF FORMER SURGEON CALLED TO APOLOGIZE THAT HE MISSED THE ORIGINAL PROBLEM- PT STATED THAT IT WORKED OUT BETTER THIS WAY FOR ALL CONCERNED Medication Reconciliation: PERFORMED TODAY - SEE BELOW. Outpatient: Has the patient been taking medications as documented in the EMLR? YES: The patient has been taking medications as documented in the EMLR. Essential Medication List for Review used to complete this medication reconciliation. INCLUDED IN THIS LIST: Alphabetical list of active outpatient prescriptions dispensed from this [facility] (local) and dispensed from another [place] or [facility]D facility (remote) as well as [...] JLV. Allergies/ADRs (Tool #5) [facility]ACILITY ALL[facility]ADR -------- [facility] NO KNOWN ALLERGIES [facility] [place] [facility] No Known Allergies [facility] NO KNOWN ALLERGIES Med [facility] Katya (Tool #1) INCLUDED IN THIS LIST: Alphabetical list of active outpatient prescriptions dispensed from this [place] (local) and dispensed from another VA or [...] the patient into personal health records (i.e. [employer]) are NOT included in this list. Non-VA medications documented outside this [place], remote inpatient orders (regardless of status) and remote clinic medications are NOT included in this list. The patient and provider must always discuss medications the patient is taking, regardless of where the medication was dispensed or obtained. OUTPT DM 10/GUAIFENESN 100MG/5ML (AF & SF) LIQ (Status = ) TAKE 10 MLS BY MOUTH EVERY 6 HOURS NEEDED FOR COUGH Rx# [id number] Last Released: 11/05/24 Qty/Days Supply: 120/90 Rx Expiration Date: 02/03/25 Refills Remainin Indication: FOR COUGH OUTPT DULOXETINE HCL 60MG EC CAP (Status = Active) TAKE ONE CAPSULE BY MOUTH ONCE DAILY Rx# [id number] Last Released: 02/22/25 Qty/Days Supply: 60/60 Rx Expiration Date: 09/15/25 Refills Remainin Indication: FOR MAJOR DEPRESSIVE DISORDER OUTPT GABAPENTIN 100MG CAP (Status = Discontinued) TAKE ONE CAPSULE BY MOUTH EVERY MORNING AND TAKE ONE CAPSULE AT BEDTIME AND TAKE ONE CAPSULE AT NOON NEEDED FOR NERVE PAIN Rx# [id number] Last Released: 07/29/24 Qty/Days Supply: 270/90 Rx Expiration Date: 07/30/25 Refills Remainin Indication: FOR NERVE PAIN OUTPT GABAPENTIN 100MG CAP (Status = Active) TAKE TWO CAPSULES BY MOUTH TWICE DAILY Rx# [id number] Last Released: 03/16/25 Qty/Days Supply: 360/90 Rx Expiration Date: 03/16/26 Refills Remainin Indication: FOR NERVE PAIN OUTPT LEVOTHYROXINE NA 125MCG TAB (Status = Discontinued) TAKE ONE TABLET BY MOUTH EVERY MORNING 30 MINUTES BEFORE BREAKFAST FOR THYROID - TAKE ON AN EMPTY STOMACH WITH A FULL GLASS OF WATER Rx# [id number] Last Released: 12/03/24 Qty/Days Supply: 90 Rx Expiration Date: 09/22/25 Refills Remainin OUTPT LEVOTHYROXINE NA 125MCG TAB (Status = Discontinued) TAKE ONE TABLET BY MOUTH EVERY MORNING 30 MINUTES BEFORE BREAKFAST FOR THYROID - TAKE ON AN EMPTY STOMACH WITH A FULL GLASS OF WATER Rx# [id number] Last Released: 03/24/25 Qty/Days Supply: 90 Rx Expiration Date: 06/20/25 Refills Remainin OUTPT LEVOTHYROXINE NA 125MCG TAB (Status = Active/Suspended) TAKE ONE TABLET BY MOUTH EVERY MORNING 30 MINUTES BEFORE BREAKFAST FOR THYROID - TAKE ON AN EMPTY STOMACH WITH A FULL GLASS OF WATER Rx# [id number] Last Released: Qt Supply: Rx Expiration Date: 03/25/26 Refills Remainin OUTPT LIDOCAINE 5% PATCH (Status = Active) APPLY 1 PATCH TOPICALLY EVERY 24 HOURS FOR LOW BACK PAIN (LEAVE PATCH ON FOR 12 HOURS, THEN REMOVE PATCH) Rx# [id number] Last Released: 09/10/24 Qty/Days Supply: Rx Expiration Date: 06/16/25 Refills Remainin Indication: FOR LOW BACK PAIN OUTPT LORAZEPAM 0.5MG TAB (Status = Active) TAKE ONE TABLET BY MOUTH TWICE DAILY FOR ANXIETY Rx# [id number] Last Released: 03/21/25 Qty/Days Supply: Rx Expiration Date: 05/24/25 Refills Remainin Indication: FOR ANXIETY OUTPT OMEPRAZOLE 20MG EC CAP (Status = Active/Suspended) TAKE ONE CAPSULE BY MOUTH EVERY MORNING 30 MINUTES BEFORE BREAKFAST FOR GASTROESOPHAGEAL REFLUX DISEASE Rx# [id number] Last Released: 02/12/25 Qty/Days Supply: Rx Expiration Date: 12/03/25 Refills Remainin Indication: FOR GASTROESOPHAGEAL REFLUX DISEASE Non-VA OTHER CAP/TAB TAKE HYALURONIC ACID BY MOUTH ONCE DAILY Patient wants to buy from Non-VA pharmacy. OUTPT PAROXETINE HCL 10MG TAB (Status = Active) TAKE ONE TABLET BY MOUTH AT BEDTIME FOR MOOD Rx# [id number] Last Released: 03/10/25 Qty/Days Supply: Rx Expiration Date: 01/12/26 Refills Remainin Indication: FOR MAJOR DEPRESSIVE DISORDER OUTPT PEG 400 0.4%/PROP GLYCOL 0.3% OPH SOLN (Status = ) INSTILL 1 DROP INTO EACH EYE FOUR TIMES DAILY NEEDED FOR DRY EYE Rx# [id number] Last Released: 08/18/24 Qty/Days Supply: Rx Expiration Date: 03/09/25 Refills Remainin Indication: FOR DRY EYE OUTPT PRAZOSIN HCL 5MG CAP (Status = Discontinued) TAKE ONE CAPSULE BY MOUTH AT BEDTIME Rx# [id number] Last Released: 01/08/25 Qty/Days Supply: Rx Expiration Date: 09/29/25 Refills Remainin OUTPT QUETIAPINE FUMARATE 25MG TAB (Status = Discontinued) TAKE ONE TABLET BY MOUTH AT BEDTIME (MAY TAKE TWO TABLETS IF NEEDED) Rx# [id number] Last Released: 02/09/25 Qty/Days Supply: Rx Expiration Date: 03/11/25 Refills Remainin Indication: N[place] OUTPT QUETIAPINE FUMARATE 25MG TAB (Status = Active) TAKE ONE TABLET BY MOUTH AT BEDTIME (MAY TAKE TWO TABLETS IF NEEDED) Rx# [id number] Last Released: 04/02/25 Qty/Days Supply: Rx Expiration Date: 03/22/26 Refills Remainin Indication: [place] OUTPT ROSUVASTATIN CA 40MG TAB (Status = Active) TAKE ONE TABLET BY MOUTH ONCE DAILY FOR CHOLESTEROL Rx# [id number] Last Released: 04/02/25 Qty/Days Supply: Rx Expiration Date: 07/30/25 Refills Remainin Indication: FOR HIGH CHOLESTEROL OUTPT TRAMADOL HCL 50MG TAB (Status = ) TAKE ONE TABLET BY MOUTH ONCE DAILY NEEDED Rx# [id number] Last Released: 03/17/25 Qty/Days Supply: Rx Expiration Date: 04/14/25 Refills Remainin Indication: FOR PAIN Non-VA VITAMIN D3 (CHOLECALCIFEROL) TAB TAKE BY MOUTH ONCE DAILY Patient wants to buy from Non-VA pharmacy. OUTPT ZOLPIDEM TARTRATE 5MG TAB (Status = Active) TAKE ONE TABLET BY MOUTH AT BEDTIME NEEDED FOR SLEEP Rx# [id number] Last Released: 01/28/25 Qty/Days Supply: Rx Expiration Date: 07/14/25 Refills Remainin SUPPLIES /oscar/ THOM KAHN DPM RISK CONTROL SPECIALIST Signed: 04/22/2025 14:54 THOM KAHNFIELD
--- OUTSIDE RECORDS SUMMARY | 2025-05-03 07:00 | XMS_ITS | Encounter Summary ---
Author Name [facility] [place] Organization [place] Address [address] [place] [address] Care Team Providers Care Cartridge Filler Name Role Phone FRANCO CAMPBELL Primary Care [...] PART A Nov 24, 2010 PART A [id number] ROHINI CARBAJAL CHARD PATIENT MEDICARE (WNR) MEDICARE (M) PART A Nov 24, 2010 PART A [id number] [phone] [id number] SOLOMON,ROHINI CHARD PATIENT MEDICARE (WNR) MEDICARE (M) PART A Nov 24, 2008 PART A [id number] [phone] SOLOMON,ROHINI CHARD PATIENT MEDICARE (WNR) MEDICARE (M) PART A Nov 24, 2008 PART A [id number] SOLOMON,ROHINI TODD PATIENT Selected Encounter This section includes the information on record at [place] for the Encounter. Date/Time Encounter Type Encounter Description Reason Provider Source May 03, 2025 11:00 AM OFFICE O/P EST LOW 20 MIN [facility] - IND ICD-10-CM F43.12 Post-traumatic stress disorder, chronic JANELLE BREWER [facility] Encounter Template Text not used by [place] Assessments - Encounter Diagnoses This section includes the primary and secondary diagnoses documented for the Encounter. Date/Time Primary/Secondary Diagnosis Diagnosis Name Provider Source May 03, 2025 11:33 AM PRIMARY Post-traumatic stress disorder, chronic BREWERJANELLE Bassam [place] Plan of Treatment: Future Appointments (+ 6 months) and Future Tests (+/- 45 days) The Plan of Treatment section includes future care activities for the patient from all [place] [facility]. This section includes future appointments and future orders which are active, pending or scheduled. Future Appointments This section includes appointments that were scheduled to occur 6 months from the date of the Encounter, up to a maximum of 20 appointments. The data comes from all [facility]. Appointment Date/Time Appointment Type Appointme nt Facility Name Jun 01, 2025 03:00 PM [facility]UL[facility] Jun 08, 2025 08:00 AM [facility] Jun 16, 2025 11:00 AM [facility] Jul 20, 2025 03:00 PM AM[facility]UL[facility]ICINE [facility] Jul 28, 2025 09:00 AM [facility] Aug 19, 2025 02:30 PM AMBULATORY - MEDICINE [facility] Aug 25, 2025 11:00 AM AM[facility]ORY [facility] Sep 15, 2025 11:00 AM AMBULATORY - MEDICINE [facility] Oct 25, 2025 11:00 AM AMBULATORY - PSYCHIATRY [facility] Active, Pending, and Scheduled Orders This section includes a listing of several types of active, pending, and scheduled orders, including clinic medications orders, diagnostic test orders, procedure orders and consult orders; where thestart date of the order is 45 days before the date of the Encounter or 45 days after the date of the Encounter. The data comes from all [facility]. Test Date/Time Test Type Test Details Facility Name May 04, 2025 10:40 AM Consult Order COMMUNITY CARE-DOG RAISER Cons Patient Transportation Driver's Choice [place] [facility] [place] [facility] Jun 09, 2025 12:06 AM Consult Order COMMUNITY CARE-VASCULAR SURGERY Cons Patient Transportation Driver's Choice [place] [facility] [place] [facility] Social History: Smoking Status (Most current) and Tobacco Use (All prior to encounter date) This section includes the most current, and the historical, smoking and tobacco- related health factors from the [place] facility where the Encounter took place. Current Smoking Status This section includes the most current smoking, or tobacco-related health factor, from the [place] facility where the Encounter took place. Date/Time Current Smoking Status Comment Facil ity Jul 29, 2024 11:00 AM VA-TOBACCO FORMER USER [place] Tobacco Use History This section includes a history of the smoking, or tobacco-related health factors, that were collected on or before the date of the Encounter. The data comes from the [place] facility where the Encounter took place. Date/Time Smoking Status/Tobacco Use Comment F acility Jul 29, 2024 11:00 AM VA-TOBACCO QUIT 5 TO < 15 YRS [place] Jun 10, 2023 03:30 PM VA-TOBACCO FORMER USER [place] Jun 10, 2023 03:30 PM VA-TOBACCO QUIT 1 TO < 5 YRS [place] Jul 09, 2022 03:30 PM VA-TOBACCO FORMER USER [place] Jul 09, 2022 03:30 PM VA-TOBACCO QUIT 15 YRS OR MORE [place] Jun 08, 2021 09:00 AM VA-TOBACCO FORMER USER [place] Jun 08, 2021 09:00 AM VA-TOBACCO QUIT < 1 YEAR [place] Jun 20, 2020 09:38 AM VA-TOBACCO FORMER USER [place] Jun 20, 2020 09:38 AM VA-TOBACCO QUIT 5 TO < 15 YRS [place] Feb 10, 2019 06:20 PM VA-TOBACCO DOESNT USE WI 30 MIN WAKEUP [place] Feb 10, 2019 06:20 PM VA-TOBACCO USE 30 YEARS OR MORE [place] Feb 10, 2019 06:20 PM VA-TOBACCO USE ADVICE [place] Feb 10, 2019 06:20 PM VA-TOBACCO USE DUST BOX WORKER NO [place] Feb 10, 2019 06:20 PM VA-TOBACCO USE MED NO [place] Feb 10, 2019 06:20 PM VA-TOBACCO USER SOME DAYS [place] Mar 05, 2018 08:47 AM QUIT TOBACCO USE 1 -7 YEARS AGO [place] Oct 07, 2017 02:29 PM QUIT TOBACCO USE IN PAST YEAR [place] March 27, 2017 02:09 PM QUIT TOBACCO USE IN PAST Y EAR cigars [place] Dec 04, 2016 02:35 PM [facility] Mar 19, 2016 10:33 AM V1-PT NOT INTEREST ED IN QUIT TOBACCO USE [place] Feb 07, 2016 09:06 AM CURRENT SMOKER States he smokes cigars every couple of days [place] Dec 06, 2014 09:39 AM CURRENT SMOKER [facility] Oct 29, 2013 08:14 AM V1-PT DECLINES REF TO TOBACCO CESS [facility] Oct 29, 2013 08:14 AM V1-PT READY TO ORSANGELA T TOBACCO USE [place] May 20, 2013 09:56 AM QUIT TOBACCO USE IN PAST YEAR [place] Nov 12, 2012 08:56 AM V1-PT DECLINES REF TO TOBACCO CESS [facility] Nov 12, 2012 08:56 AM V1-PT DECLINES TOB ACCO CESSATION [facility] Nov 12, 2012 08:56 AM V1-PT THINKING ABO UT QUIT TOBACCO USE [place] Aug 12, 2012 08:38 AM CURRENT SMOKER 4-5cigars/d [place] Aug 05, 2011 11:00 AM CURRENT SMOKER Pt. smikes 1 cigar a day! [place] Aug 05, 2011 11:00 AM V1-PT DECLINES REF TO TOBACCO CESS [facility] Aug 05, 2011 11:00 AM V1-PT DECLINES TOB ACCO CESSATION [facility] Aug 05, 2011 11:00 AM V1-PT THINKING ABO UT QUIT TOBACCO USE [place] Sep 27, 2010 08:35 AM V1-PT DECLINES REF TO TOBACCO CESS [facility] Sep 27, 2010 08:35 AM V1-PT READY TO ROSANGELA T TOBACCO USE [place] April 03, 2010 02:39 PM QUIT TOBACCO USE IN PAST YEAR [place] Radiology Reports: +/- 30 days of the [...] the Encounter. The data comes from all [facility] facilities. Date/Time Radiology Report Provider Source April 14, 2025 12:07 PM SPINE LUMBOSACRAL MIN 2 VIEWS: CAMACHO CARBAJAL [id number] -[id number] M Exm Date: APRIL 14, 2025@12:07 Req Phys: JOSE DAVID RIVERA Loc: [facility] PACT EIGHT MD [place] (Req'g Lo Img Loc: [facility] 1 Service: Unknown [place] [address] (Case [id number] COMPLETE) SPINE LUMBOSACRAL MIN 2 VIEWS (RAD Detailed) CPT:42553 Reason for Study: chronic LBP with right sided [id number]. 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 s/p PT, Accupucncture, CS Inj pending neurosurgical evaluation. Report Status: Verified Date Reported: APRIL 14, 2025 Date Verified: APRIL 14, 2025 Electronic Funds Transfer Coordinator E-Sig:/ES/DORYS HERNANDEZ JR Report: Study: AP, lateral [...] Primary Interpreting Staff: DORYS HERNANDEZ JR, Radiologist (Electronic Funds Transfer Coordinator) /DORYS ROBERTS JR [facility] Encounter Notes: All associated encounter notes This section contains the clinical notes associated to the Encounter. Date/Time Encounter Note(s) Provider Source May 03, 2025 10:59 AM CLINICAL NURSE SPE CRIS NOTE: LOCAL TITLE: CLINICAL NURSE SPECIALIST/MENTAL HEALTH STANDARD TITLE: CLINICAL NURSE SPECIALIST NOTE DATE OF NOTE: MAY 03, 2025@10:59 ENTRY DATE: MAY 03, 2025@10:59:41 AUTHOR: JANELLE BREWER EXP COSIGNER: URGENCY: STATUS: COMPLETED Pertinent symptoms: PTSD, chronic symptoms. - In person 30 min- - medication management. Followed by Ana Lilia MYERS for counseling Taking Duloxetine for mood and [...] disease); Major Depressive Disorder, recurrent; Chronic PTSD Overall his mood has improved with current medications and therapy Hw reports that his has cancer surgery and is recovering slowly but improved -Attending SIN meetings . Remains active as much as he can. He is driving. He states he still has periods of depression- but improved He is followed [facility] the [facility]and now [facility]. 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 I asked the patient call [phone] [place] or to come to open access if needed AIMS Testing: AIMS (Mental Health Instrument) The patient was evaluated for symptoms of tardive dyskinesia using the AIMS. Total score for items 1-7: 0 Depression Monitoring (PHQ-9): PHQ-9 A PHQ-9 screen was performed. The score was 2. 1. Little interest or pleasure in doing [...] as reading the newspaper or watching television Not at all 8. Moving or speaking so slowly that [...] get along with other people? Somewhat difficult Sherrill had no previous PHQ-9 score to compare to current score to gauge improvement Follow-up interval: Number of months until follow-up: 6 Interprofessional Communication: No communication needed Medication Reconciliation: Outpatient: Has the patient [...] with a VA or non-VA provider. /oscar/ Janelle Brewer APRN, STAFF CLINICAL NURSE SPECIALIST Signed: 05/03/2025 11:33 JANELLE BREWERFIELD
--- OUTSIDE RECORDS SUMMARY | 2025-06-16 07:00 | XMS_ITS | Encounter Summary ---
Author Name [facility] [place] Organization [place] Address [address] [place] [address] Care Team Providers Care Lease Operator Name Role Phone FRANCO CAMPBELL Primary [...] PART A Nov 24, 2010 PART A [id number] ROHINI CARBAJAL CHARD PATIENT MEDICARE (WNR) MEDICARE (M) PART A Nov 24, 2010 PART A [id number] ROHINI CARBAJAL CHARD PATIENT MEDICARE (WNR) MEDICARE (M) PART A Nov 24, 2008 PART A [id number] ROHINI CARBAJAL CHARD PATIENT MEDICARE (WNR) MEDICARE (M) PART A Nov 24, 2008 PART A [id number] SOLOMON,ROHINI TODD PATIENT Selected Encounter This section includes the information on record at [place] for the Encounter. Date/Time Encounter Type Encounter Description Reason Provider Source Jun 16, 2025 11:00 AM PSYTX W PT 60 MINUTES [facility] - [facility] ICD-10-CM F43.12 Post-traumatic stress disorder, chronic ABRANHUNTER Cara Encounter Template Text not used by [place] Assessments - Encounter Diagnoses This section includes the primary and secondary diagnoses documented for the Encounter. Date/Time Primary/Secondary Diagnosis Diagnosis Name Provider Source Jun 16, 2025 11:47 AM PRIMARY Post-traumatic stress disorder, HUNTER Garcia [place] Plan of Treatment: Future Appointments (+ 6 months) and Future Tests (+/- 45 days) The Plan of Treatment section includes future care activities for the patient from all [place] [facility]. This section includes future appointments and future orders which are active, pending or scheduled. Future Appointments This section includes appointments that were scheduled to occur 6 months from the date of the Encounter, up to a maximum of 20 appointments. The data comes from all [place] treatment [facility]. Appointment Date/Time Appointment Type Appointme nt Facility Name Jul 20, 2025 03:00 PM AMBULATORY - MEDICINE [facility] Jul 28, 2025 09:00 AM AMBULATORY - MEDICINE [facility] Aug 19, 2025 02:30 PM AMBULATORY - MEDICINE [facility] Aug 25, 2025 11:00 AM AMBULATORY - PSYCHIATRY [facility] Sep 15, 2025 11:00 AM AMBULATORY - MEDICINE [facility] Oct 25, 2025 11:00 AM AMBULATORY - PSYCHIATRY [facility] Active, Pending, and Scheduled Orders This section includes a listing of several types of active, pending, and scheduled orders, including clinic medications orders, diagnostic test orders, procedure orders and consult orders; where the start date of the order is 45 days before the date of the Encounter or 45 days after the date of theEncounter. The data comes from all [place] treatment [facility]. 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 Radiology Reports and Pathology Reports are provided separately, in subsequent sections. Lab Results This section contains the Chemistry/Hematology Results that were resulted 30 days before or 30 daysafter the date of the Encounter. Date/Time Source Result Type Result - Unit Interpretation Reference Range Specimen Type Comment Jul 12, 2025 12:55 PM [place] TSH SERUM Specimen Type: SERUM No comment entered. Ordering Provider: DELORIS CAMPBELL Report Released Date/Time: Jun 23, 2025 09:44 AM [facility] [address] [address] Performing [facility] [address] [address] TSH 0.36 u[IU]/mL 0.35-4.94 Jul 12, 2025 12:55 PM [place] LIPID PANEL, NON FASTING SERUM Specim en Type: SERUM No comment entered. Ordering Provider: FRANCO CAMPBELL Report Released Date/Time: Jun 23, 2025 09:44 AM Reporting Lab: [facility] [address] [facility] [address] Performing [facility] [address] [address] CHOLESTEROL 170 mg/dL TRIGLYCERIDE 148 mg/dL 0-150 LDL calculated 93 mg/dL 0-129 CHOL/HDL 3.6 HDL CHOLESTEROL 47 mg/dL >40 Jul 12, 2025 12:55 PM [place] LIVER FUNCTION SERUM Specimen Type: S NAIN No comment entered. Ordering Provider: FRANCO CAMPBELL Report Released Date/Time: Jun 23, 2025 09:44 AM Reporting [facility] [address] Performing [facility] [address] [address] PROTEIN,TOTAL 7.1 g/dL 6.4-8.3 ALBUMIN 4.3 g/dL 3.2-4.6 ALKALINE PHOSPHATASE 109 U/L 40-150 AST 26 U/L 5-34 ALT 27 U/L 0-55 BILIRUBIN, TOTAL 0.7 mg/dL 0.2-1.2 Jul 12, 2025 12:55 PM [place] HEMOGLOBIN A1C PANEL BLOOD Specimen T ype: BLOOD Comment: Values obtained from A1C measurements can vary. For atypical A1C assays, a reported value of 7.0 could actually be between 6.72 and 7.28 if measured by a reference method. A reported value of 9.0 could actually be between 8.73 and 9.27. Ref: http://www.ngsp.org/CAPdata.asp Ordering Provider: FRANCO CAMPBELL Report Released Date/Time: Jun 23, 2025 09:44 AM Reporting Lab: [address] [address] Performing Lab: [address] [address] HEMOGLOBIN A1C 6.1 H 4.0-5.6 Jul 12, 2025 12:55 PM [place] BASIC METABOLIC PANEL (non-fasting) SERUM Specimen Type: SERUM No comment entered. Ordering Provider: FRANCO CAMPBELL Report Released Date/Time: Jun 23, 2025 09:44 AM Reporting Lab: [address] [address] Performing Lab: [address] [address] [facility]A NITROGEN 29 mg/dL H 8-26 GLUCOSE 100 mg/dL 65-100 SODIUM 138 mmol/L 136-145 POTASSIUM 4.1 mmol/L 3.5-5.1 CHLORIDE 104 mmol/L 98-107 CO2 26 meq/L 23-31 CALCIUM 9.3 mg/dL 8.8-10 CREATININE, Serum 1.37 mg/dL H 0.72-1.25 eGFR(CKD-EPI 2020) 52 mL/min L >60 Jul 12, 2025 12:55 PM [place] CBC AND DIFF (AUTO) BLOOD Specimen Ty pe: BLOOD No comment entered. Ordering Provider: FRANCO CAMPBELL Report Released Date/Time: Jun 23, 2025 09:44 AM Reporting Lab: [facility] [address] [facility] [address] Performing Lab: [facility] [address] [facility] [address] WBC 9.56 10*3/uL 4.50-11.00 RBC 5.79 10*6/uL H 4.23-5.66 HGB 16.4 g/dL 12.8-17 HCT 50.7 H 39.2-50.4 MCV 87.6 fL 82-99 MCHC 32.3 g/dL 30.8-35.1 PLT 287 10*3/uL 140-360 MPV 9.5 fL 9.2-12.4 RDW-CV 13.4 12.0-16.0 MONO, ABS 0.89 10*3/uL 0.30-1.10 MCH 28.3 pg 26.2-32.6 NEUT % 59.3 43.7-75.8 LYMPH % 28.1 14.0-42.3 MONO % 9.3 5.1-13.7 EOS % 1.4 0.4-6.8 BASO % 0.6 0.1-2.0 NEUT, ABS 5.67 10*3/uL 2.20-7.60 LYMPH, ABS 2.69 10*3/uL 1.00-3.20 EOS, ABS 0.13 10*3/uL 0.03-0.44 BASO, ABS 0.06 10*3/uL 0.01-0.13 IMMATURE GRAN % 1.3 H 0.0-0.7 IMMATURE GRAN, ABS 0.12 10*3/uL H 0.00-0.0 6 NRBC % 0.0 0.0-0.0 NRBC, ABS 0.00 10*3/uL 0.00-0.00 Social History: Smoking Status (Most current) and [...] 29, 2024 11:00 AM VA-TOBACCO FORMER USER [place] Tobacco Use History This section includes a history of the smoking, or tobacco-related health factors, that were collected on or before the date of the Encounter. The data comes from the [place] facility where the Encounter took place. Date/Time Smoking Status/Tobacco Use Comment F acility Jul 29, 2024 11:00 AM VA-TOBACCO QUIT 5 TO < 15 YRS [place] Jun 10, 2023 03:30 PM VA-TOBACCO FORMER USER [place] Jun 10, 2023 03:30 PM VA-TOBACCO QUIT 1 TO < 5 YRS [place] Jul 09, 2022 03:30 PM VA-TOBACCO FORMER USER [place] Jul 09, 2022 03:30 PM VA-TOBACCO QUIT 15 YRS OR MORE [place] Jun 08, 2021 09:00 AM VA-TOBACCO FORMER USER [place] Jun 08, 2021 09:00 AM VA-TOBACCO QUIT < 1 YEAR [place] Jun 20, 2020 09:38 AM VA-TOBACCO FORMER USER [place] Jun 20, 2020 09:38 AM VA-TOBACCO QUIT 5 TO < 15 YRS [place] Feb 10, 2019 06:20 PM VA-TOBACCO DOESNT USE WI 30 MIN WAKEUP [place] Feb 10, 2019 06:20 PM VA-TOBACCO USE 30 YEARS OR MORE [place] Feb 10, 2019 06:20 PM VA-TOBACCO USE ADVICE [place] Feb 10, 2019 06:20 PM 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 [place] Feb 10, 2019 06:20 PM VA-TOBACCO USE MED NO [place] Feb 10, 2019 06:20 PM VA-TOBACCO USER SOME DAYS [place] Mar 05, 2018 08:47 AM QUIT TOBACCO USE 1 -7 YEARS AGO [place] Oct 07, 2017 02:29 PM QUIT TOBACCO USE IN PAST YEAR [place] March 27, 2017 02:09 PM QUIT TOBACCO USE IN PAST Y EAR cigars [place] Dec 04, 2016 02:35 PM [facility] Mar 19, 2016 10:33 AM V1-PT NOT INTEREST ED IN QUIT TOBACCO USE [place] Feb 07, 2016 09:06 AM CURRENT SMOKER States he smokes cigars every couple of days [place] Dec 06, 2014 09:39 AM [facility] Oct 29, 2013 08:14 AM V1-PT DECLINES REF TO TOBACCO CESS [facility] [place] Oct 29, 2013 08:14 AM V1-PT READY TO ROSANGELA T TOBACCO USE [place] May 20, 2013 09:56 AM QUIT TOBACCO USE IN PAST YEAR [place] Nov 12, 2012 08:56 AM V1-PT DECLINES REF TO TOBACCO CESS [facility] Nov 12, 2012 08:56 AM V1-PT DECLINES TOB ACCO CESSATION [facility] Nov 12, 2012 08:56 AM V1-PT THINKING ABO UT QUIT TOBACCO USE [place] Aug 12, 2012 08:38 AM CURRENT SMOKER 4-5cigars/d [place] Aug 05, 2011 11:00 AM CURRENT SMOKER Pt. smikes 1 cigar a day! [place] Aug 05, 2011 11:00 AM V1-PT DECLINES REF TO TOBACCO CESS [facility] Aug 05, 2011 11:00 AM V1-PT DECLINES TOB ACCO CESSATION [facility] Aug 05, 2011 11:00 AM V1-PT THINKING ABO UT QUIT TOBACCO USE [place] Sep 27, 2010 08:35 AM V1-PT DECLINES REF TO TOBACCO CESS [facility] Sep 27, 2010 08:35 AM V1-PT READY TO ROSANGELA T TOBACCO USE [place] April 03, 2010 02:39 PM QUIT TOBACCO USE IN PAST YEAR [place] Encounter Notes: All associated encounter notes This section contains the clinical notes associated to the Encounter. Date/Time Encounter Note(s) Provider Source Jun 16, 2025 10:55 AM SOCIAL WORK NOTE: LOCAL TITLE: SOCIAL WORK NOTE STANDARD TITLE: SOCIAL WORK NOTE DATE OF NOTE: JUN 16, 2025@10:55 ENTRY DATE: JUN 16, 2025@10:55:47 AUTHOR: HUNTER OSULLIVAN COSIGNER: ANDREI MILLER URGENCY: STATUS: COMPLETED INFORMED CONSENT REVIEWED: At beginning of session reviewed rights and limits of confidentiality, mandatory reporting situations, duty to warn and protect, [place] Warning, (if treatment team finds patient to be an acute danger to himself or others, that this information could be relayed to a court of law and presented to a human resources hr generalist), and DOD access for active duty service members. Provided Suicide Prevention Hotline number, and other contact numbers as necessary. VISIT DURATION 60 minutes DIAGNOSES: PTSD, chronic [employer] STATEMENT OF GOALS/CONCERNS: I've been seeing a therapist at the [facility] for years for my PTSD but [...] though I liked my therapist at the [employer], it got to where he never asked me about my symptoms and we never worked on them, but I've been getting worse all the while. SESSION FOCUS: [place] reported feeling generally good though his memory continues to decline especially in areas of spatial navigation, daily tasks, and conversations. Shazia is visiting [place] with his and discussed his history with gambling addiction. Shazia does not feel at risk for gambling at this time in his life. INTERVENTIONS: Psychotherapeutic Interventions: Validating, active listening, reflecting [...] Denies current suicidal/homicidal ideation PLAN FOR FOLLOW-UP: bi-monthly This case is supervised by LOUIS Pardo. Diagnosis, treatment plan, and response to care are reviewed in standard 1-hour, or more, weekly individual supervision Suicide Screen: C-SSRS Screening [place]-Suicide Severity Rating Scale (C-SSRS Screener) 1. Over the past month, have you wished you were or wished you could go to sleep and not wake up? No 2. Over the past month, have you had any actual thoughts of killing yourself? No 3. Over the past month, have you been thinking about how you might do this? Response not required due to responses to other questions. 4. Over the past month, have you had these thoughts and had some intention of acting on them? Response not required due to responses to other questions. 5. Over the past month, have you started to work out or worked out the details of how to kill yourself? Response not required due to responses to other questions. 6. If yes, at any time in the past month did you intend to carry out this plan? Response not required due to responses to other questions. 7. In your lifetime, have you ever done anything, started to do anything, or prepared to do anything to end your life (for example, collected pills, obtained a gun, gave away valuables, went to the roof but didn't jump)? No 8. If YES, was this within the past 3 months? Response not required due to responses to other questions. /oscar/ HUNTER OSULLIVAN SALES TEAM MEMBER Signed: 06/16/2025 11:56 /oscar/ LOUIS PARDO Respiratory Practitioner Mental Health Cosigned: 06/16/2025 13:55 HUNTER OSULLIVAN
--- OUTSIDE RECORDS SUMMARY | 2025-07-20 07:20 | XMS_ITS | Continuity of Care Document ---
Author Name [facility] Organization [facility] Care Team Providers Care Psychiatric Security Nurse Name Role Phone [facility] Unavailable Unavailable Problems Combined list of problems from Department of Defense and Veterans Affairs facilities. It does not include entries that were removed or entered in error. Problem Status Onset Date Problem Type Date of Resolution Comments Source Abdominal aortic aneurysm Active Condition Aug 08, 2020 Entered By: ABDULAZIZ RUIZ Comment: 08/03/20 - incidental fiinding on CT Abd @ [facility] - 3.9cm infrarenal - recommend f/u by U/S or CTA in 3 yrsDec 2023 Entered By: RAOUL MCKEON Comment: 05/03/24 AAA increased to 4.7cmDec 2023 Entered By: RAOUL MCKEON Comment: followed by vascular surgeryJan 2024 Entered By: RAOUL MCKEON Comment: 11/15/24 AAA measures 5.1cmMar 2021 Entered By: ABDULAZIZ RUIZ Comment: 02/14/22 U/S - 4.3 cm (was 2.9cm in 02/08/11) - repeat surveillance in 1 yearFeb 18, 2023 Entered By: ABDULAZIZ RUIZ Comment: 02/14/23 U/S - 4.1 cm distal AAA - repeat 6 mths [facility] Benign prostatic hypertrophy Active Condition [facility] Bilateral hearing loss Active Condition [facility] CKD stage 3 Active Condition Nov 21, 2024 Entered By: RAOUL MCKEON Comment: 07/15/24 GFR 54Jan 2024 Entered By: RAOUL MCKEON Comment: 11/15/24 GFR 51 [facility] Colonoscopy Screening Active Condition Nov 03, 2018 Entered By: ABDULAZIZ RUIZ Comment: 2005 +polypsDec 2017 Entered By: ABDULAZIZ RUIZ Comment: 11/2014 - no polyps, mild sigmoid ticsFeb 2021 Entered By: NAVID OBRIEN Comment: 10/02/21 Dr. Hill Saeed No change Reported, Spoke to Helen @ Dr. Alejandre no furthur screening due to age [facility] Constipation Active Condition [facility] Depression (SNOMED CT 08935850) Active Condition [facility] Emphysema of lung Active Condition [facility] Former smoker Active Condition [facility] Gastroesophageal reflux disease Active Condition [facility] History of right total knee replacement Active Condition Feb 03, 2023 Entered By: ABDULAZIZ RUIZ Comment: 10/09/22 - Dr Eastman/[facility] Hyperlipidemia (SNOMED CT 52941577) Active Condition Dec 02, 2024 Entered By: RAOUL MCKEON Comment: 11/15/24 lipids wnl [facility] Hypothyroidism (SNOMED CT 69653783) Active Condition Aug 01, 2024 Entered By: RAOUL MCKEON Comment: 07/15/24 TSH .74Jan 2024 Entered By: RAOUL MCKEON Comment: 11/15/24 TSH 0.87 [facility] Mild cognitive impairment Active Condition [facility] Obesity Active Condition Aug 01 Entered By: RAOUL MCKEON Comment: 07/29/24 BMI 32Dec 2023 Entered By: RAOUL MCKEON Comment: 11/05/24 BMI 33 [facility] Obstructive sleep apnea Active Condition Feb 14, 2022 Entered By: ABDULAZIZ RUIZ Comment: Home Sleep Study completed 12/13/21 - diagnosed as Moderate Nov 21, 2024 Entered By: RAOUL MCKEON Comment: cpap [facility] Peripheral neuropathic pain Active Condition [facility] Posttraumatic stress disorder (SNOMED CT 51535581) Active Condition [facility] Prediabetes Active Condition Nov 21, 2024 Entered By: RAOUL MCKEON Comment: 07/15/24 A1c 5.6Jan 2024 Entered By: RAOUL MCKEON Comment: 11/15/24 A1c 5.9 [facility] Providers Active Condition Feb 03 Entered By: NAVID OBRIEN Comment: Primary Care: Juwan Neil 2023 Entered By: RAOUL MCKEON Comment: UrologySep 2023 Entered By: RAOUL MCKEON Comment: vascular surgery Dr. Eugene Murphy 2023 Entered By: RAOUL MCKEON Comment: cardiology Dr. Andrey Herrera 2024 Entered By: RAOUL MCKEON Comment: Ortho - [facility] Radiculopathy due to lumbar intervertebral disc disorder Active Condition Dec 02, 2024 Entered By: RAOUL MCKEON Comment: gets [id number] injections - [facility] Restless legs syndrome Active Condition [facility] Solitary nodule of lung Active Condition Feb 14, 2022 Entered By: ABDULAZIZ RUIZ Comment: 02/14/[address] - left upper lobe 3.6mmMar 2022 Entered By: ABDULAZIZ RUIZ Comment: 02/14/[address] - left upper lobe nodule 3.6mmDec 2023 Entered By: RAOUL MCKEON Comment: 01/26/2024 screening LDCT - no mention of nodule, + emphysema [facility] Thoracic aortic aneurysm without rupture (SNOMED CT 45809959) Active Condition Feb 14, 2022 Entered By: ABDULAZIZ RUIZ Comment: 02/14/22 CT Chest: 3.7cm - repeat surveillance 1 yearFeb 18, 2023 Entered By: ABDULAZIZ RUIZ Comment: 02/14/23 CT Chest: no significant interval change - repeat 1 yearSep 2023 Entered By: RAOUL MCKEON Comment: 07/29/24 increased in size to 4.3cmJan 2024 Entered By: RAOUL MCKEON Comment: 11/15/24 TAA measures 2.4x2.6cm [facility] Chronic COVID-19 syndrome Inactive Condition 11/15/2024 [facility] Helicobacter-associ ated gastritis Inactive Condition 12/05/2023 Jun 08, 2015 Entered By: HEIDI PATRICK Comment: tx'ed 05/08 [facility] Nasal polyp Inactive Condition 07/30/2024 [facility] Prediabetes Inactive Condition 08/01/2024 [facility] Problems resulting from Gambling and Betting Inactive Condition 08/01/2024 [facility] Skin Lesion Inactive Condition 11/15/2024 Jun 20, 2011 Entered By: HARLEY KIMBROUGH Comment: 1.5cm light brown raised,per Pt unchanged Xyrs Left FacialJul 2011 Entered By: HARLEY KIMBROUGH Comment: Dermatology [facility], 09/09/11 [facility] Diagnosis: ICD-10-CM F43.12 Post-traumatic stress disorder, chronic Active Diagnosis [facility] Diagnosis: ICD-10-CM G47.33 Obstructive sleep apnea (adult) (pediatric) Active Diagnosis [facility] Diagnosis: ICD-10-CM L60.0 Ingrowing nail [facility] Diagnosis: ICD-10-CM R73.03 Prediabetes Active Diagnosis [facility] Diagnosis: ICD-10-CM Z12.2 Encntr screen for malignant neoplasm of respiratory organs Active Diagnosis [facility] Diagnosis: ICD-10-CM G31.84 Mild cognitive impairment of uncertain or unknown etiology Active Diagnosis [facility] Diagnosis: ICD-10-CM Z46.0 Encounter for fit/adjst of spectacles and contact lenses Active Diagnosis [facility] Diagnosis: ICD-10-CM H25.813 Combined forms of age-related cataract, bilateral Active Diagnosis [facility] Diagnosis: ICD-10-CM L82.1 Other seborrheic keratosis Active Diagnosis [facility] Diagnosis: ICD-10-CM Z13.89 Encounter for screening for other disorder Active Diagnosis [facility] Diagnosis: ICD-10-CM Z23 Encounter for immunization Active Diagnosis [facility] Diagnosis: ICD-10-CM J43.1 Panlobular emphysema Active Diagnosis [facility] Diagnosis: ICD-10-CM Z71.89 Other specified counseling Active Diagnosis [facility] Diagnosis: ICD-10-CM Z71.1 Person w feared hlth complaint in whom no diagnosis is made Active Diagnosis [facility] Diagnosis: ICD-10-CM L23.7 Allergic contact dermatitis due to plants, except food Active Diagnosis [place] Diagnosis: ICD-10-CM R21 Rash and other nonspecific skin eruption Active Diagnosis [facility] Diagnosis: ICD-10-CM M54.59 Other low back pain [facility] Diagnosis: ICD-10-CM M51.16 Intervertebral disc disorders w radiculopathy, lumbar region Active Diagnosis [facility] Diagnosis: ICD-10-CM M54.50 Low back pain, unspecified Active Diagnosis [facility] Medications Combined list of outpatient medications from Department of Defense and Veterans Affairs facilities.Medications provided include 1) outpatient medications from the last 15 months, and 2) patient-reported medications. Medication Details Route Status Patient Instructions Prescription Expires Prescription Number Last Dispense Date Ordering Provider Order Date Order Qty Source AMOXICILLIN TRIHYDRATE 500MG CAP TAKE ONE CAPSULE BY MOUTH TWICE DAILY FOR INFECTIO N CAUSED BY BACTERIA ORAL DISCONT INUED (EDIT) 02/03/2025 [id number] Mica MCKEON 2023 180 [place] AMOXICILLIN TRIHYDRATE 500MG CAP TAKE ONE CAPSULE BY MOUTH TWICE DAILY FOR INFECTIO N CAUSED BY BACTERIA ORAL 12/05/2024 [id number] Mica MCKEON 2023 14 [place] ATORVASTATI N CA 80MG TAB TAKE ONE TABLET BY MOUTH AT BEDTIME FOR CHOLESTE ROL ORAL DISCONT INUED BY PROVIDE R 06/08/2025 [id number] PATY NSOW 2023 90 [facility] [place] ATORVASTATI N CA 80MG TAB TAKE ONE TABLET BY MOUTH AT BEDTIME FOR CHOLESTE ROL ORAL DISCONT INUED 06/06/2025 [id number] Saundra ARTHUR 2023 90 [place] ATORVASTATI N CA 80MG TAB TAKE ONE TABLET BY MOUTH AT BEDTIME FOR CHOLESTE ROL ORAL DISCONT INUED 09/09/2024 [id number] CHARISMA RUIZ SA 2022 90 [facility] DEXTROMETHO RPHAN HBR 10MG/GUAIFE NESIN 100MG/5ML (AF & SF) LIQUID TAKE 10 MLS BY MOUTH EVERY 6 HOURS NEEDED FOR COUGH ORAL 02/03/2025 [id number] Mica MCKEON 2023 120 [place] DULOXETINE HCL 60MG CAP,EC TAKE ONE CAPSULE BY MOUTH ONCE DAILY ORAL ACTIVE 05/04/2026 [id number] ARTI BREWER F 2024 90 [place] DULOXETINE HCL 60MG CAP,EC TAKE ONE CAPSULE BY MOUTH ONCE DAILY ORAL DISCONT INUED 09/15/2025 [id number] BREWERARTIY F 2023 60 [place] DULOXETINE HCL 60MG CAP,EC TAKE ONE CAPSULE BY MOUTH ONCE DAILY ORAL DISCONT INUED 03/25/2025 [id number] ARTI BREWER F 2023 60 [place] GABAPENTIN 100MG CAP TAKE TWO CAPSULES BY MOUTH TWICE DAILY ORAL ACTIVE 03/16/2026 [id number] FRANCO CAMPBELL 2024 360 [place] GABAPENTIN 100MG CAP TAKE ONE CAPSULE BY MOUTH EVERY MORNING AND TAKE ONE CAPSULE AT BEDTIME AND TAKE ONE CAPSULE AT NOON NEEDED FOR NERVE PAIN ORAL DISCONT INUED (EDIT) 07/30/2025 [id number] 4 Mica MCKEON 2023 270 [place] GABAPENTIN 100MG CAP TAKE THREE CAPSULES BY MOUTH EVERY MORNING AND TAKE ONE CAPSULE AT BEDTIME AND TAKE THREE CAPSULES AT NOON NEEDED FOR NERVE PAIN ORAL DISCONT INUED (EDIT) 2024 [id number] Mica MCKEON 2023 630 [place] IBUPROFEN 600MG TAB TAKE ONE TABLET BY MOUTH THREE TIMES A DAY NEEDED - TAKE WITH FOOD OR MILK ORAL 07/24/2024 [id number] NAVNEET BARRAZA Q 2023 21 [facility] LEVOTHYROXI NE NA 125MCG TAB TAKE ONE TABLET BY MOUTH EVERY MORNING 30 MINUTES BEFORE BREAKFAS T FOR THYROID - TAKE ON AN EMPTY STOMACH WITH A FULL GLASS OF WATER ORAL ACTIVE 03/25/2026 [id number] 5 MACIBRIAN PRATTSCOTTSUMMER Axel 2024 90 [place] LEVOTHYROXI NE NA 125MCG TAB TAKE ONE TABLET BY MOUTH EVERY MORNING 30 MINUTES BEFORE BREAKFAS T FOR THYROID - TAKE ON AN EMPTY STOMACH WITH A FULL GLASS OF WATER ORAL DISCONT INUED 06/20/2025 [id number] 5 Mica MCKEON 2024 90 [place] LEVOTHYROXI NE NA 125MCG TAB TAKE ONE TABLET BY MOUTH EVERY MORNING 30 MINUTES BEFORE BREAKFAS T FOR THYROID - TAKE ON AN EMPTY STOMACH WITH A FULL GLASS OF WATER ORAL DISCONT INUED 09/22/2025 [id number] 5 Mica MCKEON 2023 90 [place] LEVOTHYROXI NE NA 125MCG TAB (SYNTHROID) TAKE ONE TABLET BY MOUTH EVERY MORNING 30 MINUTES BEFORE BREAKFAS T FOR THYROID - TAKE ON AN EMPTY STOMACH WITH A FULL GLASS OF WATER ORAL DISCONT INUED 09/16/2024 [id number] Mica MCKEON 2023 90 [place] LIDOCAINE 5% PATCH APPLY 1 PATCH TOPICALL Y EVERY 24 HOURS FOR LOW BACK PAIN (LEAVE PATCH ON FOR 12 HOURS, THEN REMOVE PATCH) TOPICA L 06/16/2025 [id number] Mica MCKEON 2023 90 [place] LORAZEPAM 0.5MG TAB TAKE ONE TABLET BY MOUTH TWICE DAILY FOR ANXIETY ORAL ACTIVE 11/03/2025 [id number] 5 ARTI BREWER 2024 60 [place] LORAZEPAM 0.5MG TAB TAKE ONE TABLET BY MOUTH TWICE DAILY FOR ANXIETY ORAL DISCONT INUED 05/24/2025 [id number] 5 ARTI BREWER 2024 60 [place] LORAZEPAM 0.5MG TAB TAKE ONE TABLET BY MOUTH TWICE DAILY FOR ANXIETY ORAL DISCONT INUED 03/17/2025 [id number] 4 ARTI BREWER 2023 60 [place] LORAZEPAM 0.5MG TAB TAKE ONE TABLET BY MOUTH TWICE DAILY FOR ANXIETY ORAL DISCONT INUED 01/15/2025 [id number] Mica MCKEON 2023 60 [place] LORAZEPAM 0.5MG TAB TAKE ONE TABLET BY MOUTH TWICE DAILY FOR ANXIETY ORAL DISCONT INUED 10/05/2024 [id number] Mica MCKEON 2023 60 [place] OMEPRAZOLE 20MG CAP,EC TAKE ONE CAPSULE BY MOUTH EVERY MORNING 30 MINUTES BEFORE BREAKFAS T FOR GASTROES OPHAGEAL REFLUX DISEASE ORAL ACTIVE 12/03/2025 [id number] Mica MCKEON 2024 90 [place] OTHER CAP/TAB TAKE HYALURON IC ACID BY MOUTH ONCE DAILY ORAL ACTIVE Mica MCKEON 2023 [place] PAROXETINE HCL 10MG TAB TAKE ONE TABLET BY MOUTH AT BEDTIME FOR MOOD ORAL ACTIVE 05/04/2026 [id number] 5 ARTI BREWER 2024 60 [place] PAROXETINE HCL 10MG TAB TAKE ONE TABLET BY MOUTH AT BEDTIME FOR MOOD ORAL DISCONT INUED 01/12/2026 [id number] ARTI BREWER 2024 60 [place] PAROXETINE HCL 10MG TAB TAKE ONE TABLET BY MOUTH AT BEDTIME FOR MOOD ORAL DISCONT INUED 08/10/2025 [id number] 5 ARTI BREWER 2023 60 [place] PAROXETINE HCL 10MG TAB TAKE ONE TABLET BY MOUTH AT BEDTIME FOR MOOD ORAL DISCONT INUED 02/17/2025 [id number] ARTI BREWER 2023 60 [place] PEG-400 0.4%/PROPYL LATHA GLYCOL 0.3% SOLN,OPH INSTILL 1 DROP INTO EACH EYE FOUR TIMES DAILY NEEDED FOR DRY EYE OPHTHA LMIC 03/09/2025 [id number] VERONICA ROSENTHAL AH B 2023 30 [facility] PRAZOSIN HCL 5MG CAP TAKE ONE CAPSULE BY MOUTH AT BEDTIME ORAL DISCONT INUED BY PROVIDE R 09/29/2025 [id number] 5 ARTI BREWER F 2023 60 [place] PRAZOSIN HCL 5MG CAP TAKE ONE CAPSULE BY MOUTH AT BEDTIME ORAL DISCONT INUED 09/17/2024 [id number] 4 ARTI BREWER 2022 60 [place] QUETIAPINE FUMARATE 25MG TAB TAKE ONE TABLET BY MOUTH AT BEDTIME (MAY TAKE TWO TABLETS IF NEEDED) ORAL ACTIVE 03/22/2026 [id number] 5 ARTI BREWER 2024 60 [place] QUETIAPINE FUMARATE 25MG TAB TAKE ONE TABLET BY MOUTH AT BEDTIME (MAY TAKE TWO TABLETS IF NEEDED) ORAL DISCONT INUED 03/11/2025 [id number] ARTI BREWER F 2024 60 [place] ROSUVASTATI N CA 40MG TAB TAKE ONE TABLET BY MOUTH EVERY EVENING FOR CHOLESTE ROL ORAL ACTIVE 06/10/2026 [id number] FRANCO CAMPBELL 2024 90 [place] ROSUVASTATI N CA 40MG TAB TAKE ONE TABLET BY MOUTH ONCE DAILY FOR CHOLESTE ROL ORAL DISCONT INUED 07/30/2025 [id number] Mica MCKEON 2023 90 [place] TRAMADOL HCL 50MG TAB TAKE ONE TABLET BY MOUTH ONCE DAILY NEEDED ORAL 04/14/2025 [id number] FRANCO CAMPBELL 2024 30 [place] VITAMIN D3 (CHOLECALCI FEROL) TAB TAKE BY MOUTH ONCE DAILY ORAL ACTIVE Mica MCKEON 2023 [place] ZOLPIDEM TARTRATE 5MG TAB TAKE ONE TABLET BY MOUTH AT BEDTIME NEEDED FOR SLEEP ORAL ACTIVE 11/03/2025 [id number] 5 ARTI BREWER 2024 30 [facility] I[place] ZOLPIDEM TARTRATE 5MG TAB TAKE ONE TABLET BY MOUTH AT BEDTIME NEEDED FOR SLEEP ORAL DISCONT INUED 07/14/2025 [id number] 5 ARTI BREWER F 2024 30 [facility] [place] ZOLPIDEM TARTRATE 5MG TAB TAKE ONE TABLET BY MOUTH AT BEDTIME NEEDED FOR SLEEP ORAL DISCONT INUED 03/17/2025 [id number] 5 ARTI BREWER F 2023 30 [facility] ZOLPIDEM TARTRATE 5MG TAB TAKE ONE TABLET BY MOUTH AT BEDTIME NEEDED FOR SLEEP ORAL DISCONT INUED 01/15/2025 [id number] 4 Mica MCKEON 2023 30 [facility] [place] ZOLPIDEM TARTRATE 5MG TAB TAKE ONE TABLET BY MOUTH AT BEDTIME NEEDED FOR SLEEP ORAL DISCONT INUED 10/05/2024 [id number] Mica MCKEON 2023 30 [facility] Immunizations Combined list of available immunizations from the Department of Defense and Veterans Affairs facilities. Immunization Series Date Given Administered By Site Reaction Lot Number CVX Code Drug Payroll And Benefits Analyst Status Comments Source COVID-19 (MODERNA), MRNA, LNP-S, PF, 50 MCG/0.5 ML (AGES 12+ YEARS) 2023 JULI RODRIGUEZ RIGHT DELTO ID [id number] 312 complet ed Booster for Series, [facility]MINISTE [facility] AT [facility] TDAP 2023 JULI RODRIGUEZ LEFT DELTO ID [id number] 115 complet ed [facility]MINISTE [facility] AT [place], [facility] INFLUENZA, HIGH-DOSE, TRIVALENT, PF 2023 JULI RODRIGUEZ RIGHT DELTO ID [id number] 135 complet ed [facility], [place] RSV, BIVALENT, PROTEIN SUBUNIT RSVPREF, DILUENT RECONSTITUTED , 0.5 ML, PF 2023 JULI RODRIGUEZ JUAN FRANCISCOBHAVINCAL LEFT DELTO ID [id number] 305 complet ed [place]MIN[place] AT [place], [facility] IELD INFLUENZA, HIGH-DOSE, QUADRIVALENT 2022 ALLYSON FLOR LEFT DELTO ID [id number] 197 complet ed ADMINISTE RED AT [facility] INFLUENZA VACCINE, QUADRIVALENT, ADJUVANTED 2021 205 complet ed [facility] COVID-19 (ciValue), MRNA, LNP-S, PF, 30 MCG/0.3 ML DOSE 4 2021 208 complet ed [facility] INFLUENZA VACCINE, QUADRIVALENT, ADJUVANTED 2021 205 complet ed [facility] I[facility] COVID-19 (ciValue), MRNA, LNP-S, PF, 30 MCG/0.3 ML DOSE 3 2020 208 complet ed [facility] COVID-19 (PFIZER), MRNA, LNP-S, PF, 30 MCG/0.3 ML DOSE 2 2020 208 complet ed [facility] COVID-19 (ciValue), MRNA, LNP-S, PF, 30 MCG/0.3 ML DOSE 1 2020 208 complet ed [facility] INFLUENZA, INJECTABLE, QUADRIVALENT, PRESERVATIVE FREE 2019 150 complet ed [facility] ZOSTER RECOMBINANT 2 2019 187 complet ed [place] ZOSTER RECOMBINANT 1 2019 187 complet ed [facility] INFLUENZA, INJECTABLE, MDCK, PRESERVATIVE FREE, QUADRIVALENT 2018 171 complet ed 02, Partner: [facility]. Administe red by: [facility] Clinician (NPI=Not Provided) . Partner 0 Lot#: [id number] Mfr: SEQIVETTE [place] INFLUENZA, SEASONAL, INJECTABLE 2017 141 complet ed at the [place] [facility] INFLUENZA, SEASONAL, INJECTABLE 2016 141 complet ed Site: Left Deltoid [place] FLU,3 YRS (HISTORICAL) 2015 88 complet ed Site: Right Deltoid [place] PNEUMOCOCCAL CONJUGATE PCV 13 2015 133 complet ed [place] FLU,3 YRS (HISTORICAL) 2014 88 complet ed Site: Left Deltoid [facility] DTAP, UNSPECIFIED FORMULATION 2014 107 complet ed Site: Right Deltoid [place] FLU,3 YRS (HISTORICAL) 2013 88 complet ed [facility] ZOSTER (SHINGLES) (HISTORICAL) 2013 121 complet ed Proximal Right Arm [place] FLU,3 YRS (HISTORICAL) 2012 88 complet ed Site: Left Deltoid [place] FLU,3 YRS (HISTORICAL) 2011 88 complet ed Site: Left Deltoid [place] FLU,3 YRS (HISTORICAL) 2010 88 complet ed Site: Left Deltoid [place] TD(ADULT) UNSPECIFIED FORMULATION 2010 139 complet ed Site: Right Deltoid [place] PNEUMOCOCCAL, UNSPECIFIED FORMULATION 2010 109 complet ed [place] FLU,3 YRS (HISTORICAL) 2009 88 complet ed [facility] FLU,3 YRS (HISTORICAL) 2008 88 complet ed [facility] Results Combined list of recent chemistry, hematology and other laboratory results from Department of Defense and Veterans Affairs, ranging from 15 months to all on record, depending upon the facility. Order Name Results Value Reference Range Date Interpretation Specimen Comments Source TSH THYROTROPIN [UNITS/VOLU ME] IN SERUM OR PLASMA BY DETECTION LIMIT <= 0.005 MIU/L 0.36 u[IU]/ mL 0.35 - 4.94 07/12 Specimen Type: SERUM No comment entered. Ordering Provider: BALA CAMPBELL Report Released Date/Time: Jun 23, 2025 09:44 AM Reporting Lab: [facility] [address] [address] Performing Lab: [facility] [address] [facility] [address] [facility] HEMOGLOBI N A1C PANEL HEMOGLOBIN A1C/HEMOGLO BIN.TOTAL IN BLOOD 6.1 4.0 - 5.6 07/12 H Specimen Type: BLOOD Comment: Values obtained from A1C measurement s can vary. For atypical A1C assays, a reported value of 7.0 could actually be between 6.72 and 7.28 if measured by a reference method. A reported value of 9.0 could actually be between 8.73 and 9.27. Ref: http://www. ngsp.org/[place] Pdata.asp Ordering Provider: BALA CAMPBELL Report Released Date/Time: Jun 23, 2025 09:44 AM Reporting Lab: [address] [address] Performing Lab: [address] [address] [facility] LIPID PANEL, NON FASTING CHOLESTEROL [MASS/VOLUM E] IN SERUM OR PLASMA 170 mg/dL 07/12 Specimen Type: SERUM No comment entered. Ordering Provider: BALA CAMPBELL Report Released Date/Time: Jun 23, 2025 09:44 AM Reporting Lab: [address] [address] Performing Lab: [address] [address] [facility] LIPID PANEL, NON FASTING TRIGLYCERID E [MASS/VOLUM E] IN SERUM OR PLASMA 148 mg/dL 0 - 150 07/12 Specimen Type: SERUM No comment entered. Ordering Provider: BALA CAMPBELL Report Released Date/Time: Jun 23, 2025 09:44 AM Reporting Lab: [address] [address] Performing Lab: [address] [address] [facility] LIPID PANEL, NON FASTING CHOLESTEROL IN LDL [MASS/VOLUM E] IN SERUM OR PLASMA BY CALCULATION 93 mg/dL 0 - 129 07/12 Specimen Type: SERUM No comment entered. Ordering Provider: BALA CAMPBELL Report Released Date/Time: Jun 23, 2025 09:44 AM Reporting Lab: [facility] [address] [facility] [address] Performing Lab: [facility] [address] [address] [place] LIPID PANEL, NON FASTING CHOLESTEROL .TOTAL/CHOL ESTEROL IN HDL [MASS RATIO] IN SERUM OR PLASMA 3.6 07/12 Specimen Type: SERUM No comment entered. Ordering Provider: BALA CAMPBELL Report Released Date/Time: Jun 23, 2025 09:44 AM Reporting Lab: [address] [address] Performing Lab: [address] [address] [place] LIPID PANEL, NON FASTING CHOLESTEROL IN HDL [MASS/VOLUM E] IN SERUM OR PLASMA 47 mg/dL 40 07/12 Specimen Type: SERUM No comment entered. Ordering Provider: BALA CAMPBELL Report Released Date/Time: Jun 23, 2025 09:44 AM Reporting Lab: [address] [address] Performing Lab: [facility] [address] [address] [place] LIVER FUNCTION PROTEIN [MASS/VOLUM E] IN SERUM OR PLASMA 7.1 g/dL 6.4 - 8.3 07/12 Specimen Type: SERUM No comment entered. Ordering Provider: BALA CAMPBELL Report Released Date/Time: Jun 23, 2025 09:44 AM Reporting Lab: [facility] [address] [address] Performing Lab: [facility] [address] [address] [place] LIVER FUNCTION ALBUMIN [MASS/VOLUM E] IN SERUM OR PLASMA BY BROMOCRESOL PURPLE (BCP) DYE BINDING METHOD 4.3 g/dL 3.2 - 4.6 07/12 Specimen Type: SERUM No comment entered. Ordering Provider: BALA CAMPBELL Report Released Date/Time: Jun 23, 2025 09:44 AM Reporting Lab: [facility] [address] [facility] [address] Performing Lab: [place] [facility] [address] [facility] [address] [place] LIVER FUNCTION ALKALINE PHOSPHATASE [ENZYMATIC ACTIVITY/VO LUME] IN SERUM OR PLASMA 109 U/L 40 - 150 07/12 Specimen Type: SERUM No comment entered. Ordering Provider: BALA CAMPBELL Report Released Date/Time: Jun 23, 2025 09:44 AM Reporting Lab: [place] [facility] [address] [address] Performing Lab: [facility] [address] [address] [place] LIVER FUNCTION ASPARTATE AMINOTRANSF ERASE [ENZYMATIC ACTIVITY/VO LUME] IN SERUM OR PLASMA BY WITH P-5'-P 26 U/L 5 - 34 07/12 Specimen Type: SERUM No comment entered. Ordering Provider: BALA CAMPBELL Report Released Date/Time: Jun 23, 2025 09:44 AM Reporting Lab: [facility] [address] [address] Performing Lab: [place] [facility] [address] [place] LIVER FUNCTION ALANINE AMINOTRANSF ERASE [ENZYMATIC ACTIVITY/VO LUME] IN SERUM OR PLASMA BY WITH P-5'-P 27 U/L 0 - 55 07/12 Specimen Type: SERUM No comment entered. Ordering Provider: BALA CAMPBELL Report Released Date/Time: Jun 23, 2025 09:44 AM Reporting Lab: [place] [facility] [address] [facility] [address] Performing Lab: [facility] [facility] [address] [address] [place] FUNCTION BILIRUBIN.T OTAL [MASS/VOLUM E] IN SERUM OR PLASMA 0.7 mg/dL 0.2 - 1.2 07/12 Specimen Type: SERUM No comment entered. Ordering Provider: BALA CAMPBELL Report Released Date/Time: Jun 23, 2025 09:44 AM Reporting Lab: [facility] [address] [facility] [address] Performing Lab: [place] [facility] [facility] [facility] [address] [facility] [address] [place] BASIC METABOLIC PANEL (non-fast ing) UREA NITROGEN [MASS/VOLUM E] IN SERUM OR PLASMA 29 mg/dL 8 - 26 07/12 H Specimen Type: SERUM No comment entered. Ordering Provider: BALA CAMPBELL Report Released Date/Time: Jun 23, 2025 09:44 AM Reporting Lab: [place] [facility] [address] [address] Performing Lab: [facility] [address] [address] [place] [facility] [place] BASIC METABOLIC PANEL (non-fast ing) GLUCOSE [MASS/VOLUM E] IN SERUM OR PLASMA 100 mg/dL 65 - 100 07/12 Specimen Type: SERUM No comment entered. Ordering Provider: BALA CAMPBELL Report Released Date/Time: Jun 23, 2025 09:44 AM Reporting Lab: [facility] [address] [address] Performing Lab: [facility]ENTER[facility] [address] [place] [facility] [place] BASIC METABOLIC PANEL (non-fast ing) SODIUM [MOLES/VOLU ME] IN SERUM OR PLASMA 138 mmol/L 136 - 145 07/12 Specimen Type: SERUM No comment entered. Ordering Provider: BALA CAMPBELL Report Released Date/Time: Jun 23, 2025 09:44 AM Reporting Lab: [facility] [address] [facility] [address] Performing Lab: [facility] TRN [facility]ENTERUSE[address] [address] [place] BASIC METABOLIC PANEL (non-fast ing) POTASSIUM [MOLES/VOLU ME] IN SERUM OR PLASMA 4.1 mmol/L 3.5 - 5.1 07/12 Specimen Type: SERUM No comment entered. Ordering Provider: BALA CAMPBELL Report Released Date/Time: Jun 23, 2025 09:44 AM Reporting Lab: [facility] [address] [facility] [address] Performing Lab: [facility] [address] [facility] [address] [place] BASIC METABOLIC PANEL (non-fast ing) CHLORIDE [MOLES/VOLU ME] IN SERUM OR PLASMA 104 mmol/L 98 - 107 07/12 Specimen Type: SERUM No comment entered. Ordering Provider: BALA CAMPBELL Report Released Date/Time: Jun 23, 2025 09:44 AM Reporting Lab: [address] [address] Performing Lab: [facility] [address] [address] [place] BASIC METABOLIC PANEL (non-fast ing) CARBON DIOXIDE, TOTAL [MOLES/VOLU ME] IN SERUM OR PLASMA 26 meq/L 23 - 31 07/12 Specimen Type: SERUM No comment entered. Ordering Provider: BALA CAMPBELL Report Released Date/Time: Jun 23, 2025 09:44 AM Reporting Lab: [facility] [address] [address] Performing Lab: [facility] [address] [address] [place] BASIC METABOLIC PANEL (non-fast ing) CALCIUM [MASS/VOLUM E] IN SERUM OR PLASMA 9.3 mg/dL 8.8 - 10 07/12 Specimen Type: SERUM No comment entered. Ordering Provider: BALA CAMPBELL Report Released Date/Time: Jun 23, 2025 09:44 AM Reporting Lab: [address] [address] Performing Lab: [place] [facility] [address] [address] [place] [facility] [place] [employer] BASIC METABOLIC PANEL (non-fast ing) CREATININE [MASS/VOLUM E] IN SERUM OR PLASMA 1.37 mg/dL 0.72 - 1.25 07/12 H Specimen Type: SERUM No comment entered. Ordering Provider: BALA CAMPBELL Report Released Date/Time: Jun 23, 2025 09:44 AM Reporting Lab: [address] [address] Performing Lab: [address] [address] [place] [facility] [employer] BASIC METABOLIC PANEL (non-fast ing) GLOMERULAR FILTRATION RATE/1.73 SQ M.PREDICTED [VOLUME RATE/AREA] IN SERUM, PLASMA OR BLOOD BY CREATININE- BASED FORMULA (CKD-EPI 2020) 52 mL/min 60 07/12 L Specimen Type: SERUM No comment entered. Ordering Provider: BALA CAMPBELL Report Released Date/Time: Jun 23, 2025 09:44 AM Reporting Lab: [address] [address] Performing Lab: [address] [address] [place] [facility] [place] CBC AND DIFF (AUTO) LEUKOCYTES [#/VOLUME] IN BLOOD BY AUTOMATED COUNT 9.56 10*3/u L 4.50 - 11.00 07/12 Specimen Type: BLOOD No comment entered. Ordering Provider: BALA CAMPBELL Report Released Date/Time: Jun 23, 2025 09:44 AM Reporting Lab: [address] [address] Performing Lab: [address] [address] [place] [facility] [place] CBC AND DIFF (AUTO) ERYTHROCYTE S [#/VOLUME] IN BLOOD BY AUTOMATED COUNT 5.79 10*6/u L 4.23 - 5.66 07/12 H Specimen Type: BLOOD No comment entered. Ordering Provider: BALA CAMPBELL Report Released Date/Time: Jun 23, 2025 09:44 AM Reporting Lab: [facility] [place] [facility] [address] [facility] [address] Performing Lab: [facility] [place] [facility] [address] [facility] [address] [place] CBC AND DIFF (AUTO) HEMOGLOBIN [MASS/VOLUM E] IN BLOOD 16.4 g/dL 12.8 - 17 07/12 Specimen Type: BLOOD No comment entered. Ordering Provider: BALA CAMPBELL Report Released Date/Time: Jun 23, 2025 09:44 AM Reporting Lab: [facility] [place] [facility] [address] [facility] [address] Performing Lab: [facility]OSPITALRST. VINCENT'S CHILTONTRN [facility] CENTERUSETS [address] [address] [place] CBC AND DIFF (AUTO) HEMATOCRIT [VOLUME FRACTION] OF BLOOD BY AUTOMATED COUNT 50.7 39.2 - 50.4 07/12 H Specimen Type: BLOOD No comment entered. Ordering Provider: BALA CAMPBELL Report Released Date/Time: Jun 23, 2025 09:44 AM Reporting Lab: [facility]OSPITALRST. VINCENT'[facility] CHILTONTRN [facility]ENTERUSETS [facility] [address] [facility] [address] Performing Lab: [facility]OSPITALRST. VINCENT'[facility] CHILTONTRN [facility]ENTERUSETS [facility] [address] [facility] [address] [place] CBC AND DIFF (AUTO) MCV [ENTITIC VOLUME] BY AUTOMATED COUNT 87.6 fL 82 - 99 07/12 Specimen Type: BLOOD No comment entered. Ordering Provider: BALA CAMPBELL Report Released Date/Time: Jun 23, 2025 09:44 AM Reporting Lab: [facility]PITALRST. [facility]INCENT[facility] CH[facility]TONTRN [place] [facility] [address] [facility] [address] Performing Lab: [facility]OSPITALRST. [facility]INCENT'[facility] CHILTONTRN [facility] CENTERUSETS [address] [address] [place] CBC AND DIFF (AUTO) MCHC [MASS/VOLUM E] BY AUTOMATED COUNT 32.3 g/dL 30.8 - 35.1 07/12 Specimen Type: BLOOD No comment entered. Ordering Provider: BALA CAMPBELL Report Released Date/Time: Jun 23, 2025 09:44 AM Reporting Lab: [place] [facility] [facility] [address] [facility] [address] Performing Lab: [place] [facility] CHILTONTRN [facility]ENTERUSETS [facility] [address] [facility] [address] [place] CBC AND DIFF (AUTO) PLATELETS [#/VOLUME] IN BLOOD BY AUTOMATED COUNT 287 10*3/u L 140 - 360 07/12 Specimen Type: BLOOD No comment entered. Ordering Provider: BALA CAMPBELL Report Released Date/Time: Jun 23, 2025 09:44 AM Reporting Lab: [facility] W[facility]N [facility]ENTERUSETS [facility] [address] [facility] [address] Performing Lab: [place] CNTRST[facility]ENT[facility] CHILTONTRN [facility] CENTERUSE[address] [address] [place] CBC AND DIFF (AUTO) PLATELET MEAN VOLUME [ENTITIC VOLUME] IN BLOOD BY AUTOMATED COUNT 9.5 fL 9.2 - 12.4 07/12 Specimen Type: BLOOD No comment entered. Ordering Provider: BALA CAMPBELL Report Released Date/Time: Jun 23, 2025 09:44 AM Reporting Lab: [facility]OSPITALRST. VINCENT'[facility] CHILTONTRN [facility]ENTERUSETS [facility] [address] [facility] [address] Performing Lab: [facility]OSPITALRST. VINCENT'[facility] CHILTONTRN [facility]ENTERUSETS [facility] [address] [facility] [address] [place] CBC AND DIFF (AUTO) ERYTHROCYTE DISTRIBUTIO N WIDTH [RATIO] BY AUTOMATED COUNT 13.4 12.0 - 16.0 07/12 Specimen Type: BLOOD No comment entered. Ordering Provider: BALA CAMPBELL Report Released Date/Time: Jun 23, 2025 09:44 AM Reporting Lab: [facility] [address] [facility] [address] Performing Lab: [facility]OSPITALRST. VINCENT'[facility] CHILTONTRN [facility] CENTERUSETS [address] [address] [place] CBC AND DIFF (AUTO) MONOCYTES [#/VOLUME] IN BLOOD BY AUTOMATED COUNT 0.89 10*3/u L 0.30 - 1.10 07/12 Specimen Type: BLOOD No comment entered. Ordering Provider: BALA CAMPBELL Report Released Date/Time: Jun 23, 2025 09:44 AM Reporting Lab: [place] [facility] [facility] [address] [facility] [address] Performing Lab: [place] [facility] [address] [address] [place] CBC AND DIFF (AUTO) MCH [ENTITIC MASS] BY AUTOMATED COUNT 28.3 pg 26.2 - 32.6 07/12 Specimen Type: BLOOD No comment entered. Ordering Provider: BALA CAMPBELL Report Released Date/Time: Jun 23, 2025 09:44 AM Reporting Lab: [place] [facility] [address] [address] Performing Lab: [place] [facility] [place] [address] [address] [place] CBC AND DIFF (AUTO) NEUTROPHILS /100 LEUKOCYTES IN BLOOD BY AUTOMATED COUNT 59.3 43.7 - 75.8 07/12 Specimen Type: BLOOD No comment entered. Ordering Provider: BALA CAMPBELL Report Released Date/Time: Jun 23, 2025 09:44 AM Reporting Lab: [place] [facility] [place] [address] [address] Performing Lab: [place] [facility] [place] [address] [address] [place] CBC AND DIFF (AUTO) LYMPHOCYTES /100 LEUKOCYTES IN BLOOD BY AUTOMATED COUNT 28.1 14.0 - 42.3 07/12 Specimen Type: BLOOD No comment entered. Ordering Provider: BALA CAMPBELL Report Released Date/Time: Jun 23, 2025 09:44 AM Reporting Lab: [place] [facility] [place] [address] [address] Performing Lab: [place] [facility] [place] [address] [address] [place] CBC AND DIFF (AUTO) MONOCYTES/1 00 LEUKOCYTES IN BLOOD BY AUTOMATED COUNT 9.3 5.1 - 13.7 07/12 Specimen Type: BLOOD No comment entered. Ordering Provider: BALA CAMPBELL Report Released Date/Time: Jun 23, 2025 09:44 AM Reporting Lab: [place] [facility] [facility] [facility] [address] [facility] [address] Performing Lab: [place] [facility] [facility]USETS [facility] [address] [facility] [address] [place] CBC AND DIFF (AUTO) EOSINOPHILS /100 LEUKOCYTES IN BLOOD BY AUTOMATED COUNT 1.4 0.4 - 6.8 07/12 Specimen Type: BLOOD No comment entered. Ordering Provider: BALA CAMPBELL Report Released Date/Time: Jun 23, 2025 09:44 AM Reporting Lab: [place] [facility] [facility]ETS [facility] [address] [facility] [address] Performing Lab: [place] TRN [facility]ENTERUSE[address] [address] [place] CBC AND DIFF (AUTO) BASOPHILS/1 00 LEUKOCYTES IN BLOOD BY AUTOMATED COUNT 0.6 0.1 - 2.0 07/12 Specimen Type: BLOOD No comment entered. Ordering Provider: BALA CAMPBELL Report Released Date/Time: Jun 23, 2025 09:44 AM Reporting Lab: [facility] TRN [facility] CENTERUSETS [address] [address] Performing Lab: [place] [facility]USE[facility] [address] [facility] [address] [place] CBC AND DIFF (AUTO) NEUTROPHILS [#/VOLUME] IN BLOOD BY AUTOMATED COUNT 5.67 10*3/u L 2.20 - 7.60 07/12 Specimen Type: BLOOD No comment entered. Ordering Provider: BALA CAMPBELL Report Released Date/Time: Jun 23, 2025 09:44 AM Reporting Lab: [facility] TRN [facility]ENTERUSETS [facility] [address] [facility] [address] Performing Lab: [facility]ITALRL TRN [facility]ENTERUSE[address] [address] [place] CBC AND DIFF (AUTO) LYMPHOCYTES [#/VOLUME] IN BLOOD BY AUTOMATED COUNT 2.69 10*3/u L 1.00 - 3.20 07/12 Specimen Type: BLOOD No comment entered. Ordering Provider: BALA CAMPBELL Report Released Date/Time: Jun 23, 2025 09:44 AM Reporting Lab: [place] [facility] [facility] [address] [address] Performing Lab: [place] [facility]ENTERUSETS [address] [address] [place] CBC AND DIFF (AUTO) EOSINOPHILS [#/VOLUME] IN BLOOD BY AUTOMATED COUNT 0.13 10*3/u L 0.03 - 0.44 07/12 Specimen Type: BLOOD No comment entered. Ordering Provider: BALA CAMPBELL Report Released Date/Time: Jun 23, 2025 09:44 AM Reporting Lab: [facility]ITALRL W[facility]N [facility]ENTERUSETS [address] [address] Performing Lab: [place] [facility] [facility] [facility]ENTERUSETS [address] [address] [place] CBC AND DIFF (AUTO) BASOPHILS [#/VOLUME] IN BLOOD BY AUTOMATED COUNT 0.06 10*3/u L 0.01 - 0.13 07/12 Specimen Type: BLOOD No comment entered. Ordering Provider: BALA CAMPBELL Report Released Date/Time: Jun 23, 2025 09:44 AM Reporting Lab: [facility]ENTERUSETS [address] [address] Performing Lab: [place] [facility] [facility] [facility] [address] [address] [place] CBC AND DIFF (AUTO) IMMATURE GRANULOCYTE S/100 LEUKOCYTES IN BLOOD BY AUTOMATED COUNT 1.3 0.0 - 0.7 07/12 H Specimen Type: BLOOD No comment entered. Ordering Provider: BALA CAMPBELL Report Released Date/Time: Jun 23, 2025 09:44 AM Reporting Lab: [place] [facility] [facility] [facility] [address] [address] Performing Lab: [place] [facility] [facility]ETS [address] [address] [place] CBC AND DIFF (AUTO) IMMATURE GRANULOCYTE S [#/VOLUME] IN BLOOD BY AUTOMATED COUNT 0.12 10*3/u L 0.00 - 0.06 07/12 H Specimen Type: BLOOD No comment entered. Ordering Provider: BALA CAMPBELL Report Released Date/Time: Jun 23, 2025 09:44 AM Reporting Lab: [facility] [address] [address] Performing Lab: [facility] [address] [address] [place] CBC AND DIFF (AUTO) NUCLEATED ERYTHROCYTE S/100 LEUKOCYTES [RATIO] IN BLOOD BY AUTOMATED COUNT 0.0 0.0 - 0.0 07/12 Specimen Type: BLOOD No comment entered. Ordering Provider: BALA CAMPBELL Report Released Date/Time: Jun 23, 2025 09:44 AM Reporting Lab: [address] [address] Performing Lab: [address] [address] [place] CBC AND DIFF (AUTO) NUCLEATED ERYTHROCYTE S [#/VOLUME] IN BLOOD BY AUTOMATED COUNT 0.00 10*3/u L 0.00 - 0.00 07/12 Specimen Type: BLOOD No comment entered. Ordering Provider: BALA CAMPBELL Report Released Date/Time: Jun 23, 2025 09:44 AM Reporting Lab: [address] [address] Performing Lab: [address] [address] [place] TSH THYROTROPIN [UNITS/VOLU ME] IN SERUM OR PLASMA 0.87 u[IU]/ mL 0.35 - 5.00 11/15 Specimen Type: SERUM No comment entered. Ordering Provider: CHAVEZ MCKEON Report Released Date/Time: Nov 05, 2024 12:05 PM Reporting Lab: [facility] [address] [address] Performing Lab: [address] [address] [place] VITAMIN D (25-OH) 25-HYDROXYV ITAMIN D3 [MASS/VOLUM E] IN SERUM OR PLASMA 38 ng/mL 20 - 50 11/15 Specimen Type: SERUM No comment entered. Ordering Provider: CHAVEZ MCKEON Report Released Date/Time: Nov 05, 2024 12:05 PM Reporting Lab: [facility]PITALRLAKELAND COMM[facility]ITALN [address] [address] Performing Lab: [facility] [address] [address] [place] CBC LEUKOCYTES [#/VOLUME] IN BLOOD BY AUTOMATED COUNT 6.55 10*3/u L 4.50 - 11.00 11/15 Specimen Type: BLOOD No comment entered. Ordering Provider: CHAVEZ MCKEON Report Released Date/Time: Nov 05, 2024 12:05 PM Reporting Lab: [address] [address] Performing Lab: [address] [address] [place] CBC ERYTHROCYTE S [#/VOLUME] IN BLOOD BY AUTOMATED COUNT 5.19 10*6/u L 4.23 - 5.66 11/15 Specimen Type: BLOOD No comment entered. Ordering Provider: CHAVEZ MCKEON Report Released Date/Time: Nov 05, 2024 12:05 PM Reporting Lab: [facility] [address] [address] Performing Lab: [facility] [address] [address] [place] CBC HEMOGLOBIN [MASS/VOLUM E] IN BLOOD 14.8 g/dL 12.8 - 17 11/15 Specimen Type: BLOOD No comment entered. Ordering Provider: CHAVEZ MCKEON Report Released Date/Time: Nov 05, 2024 12:05 PM Reporting Lab: [facility]PITALRLAKELAND [facility]PITALN [address] [address] Performing Lab: [facility] [address] [address] [place] CBC HEMATOCRIT [VOLUME FRACTION] OF BLOOD BY AUTOMATED COUNT 45.2 39.2 - 50.4 11/15 Specimen Type: BLOOD No comment entered. Ordering Provider: CHAVEZ MCKEON Report Released Date/Time: Nov 05, 2024 12:05 PM Reporting Lab: [place] [facility] [facility] [facility] [address] [address] Performing Lab: [facility]OSPITALRST. VINCENT'S CHILTONTRN [facility]ENTERUSETS [address] [address] [place] CBC MCV [ENTITIC VOLUME] BY AUTOMATED COUNT 87.1 fL 82 - 99 11/15 Specimen Type: BLOOD No comment entered. Ordering Provider: CHAVEZ MCKEON Report Released Date/Time: Nov 05, 2024 12:05 PM Reporting Lab: [facility]PITALRST. VINCENT'[facility] CHILTONTRN [facility]ENTERUSETS [address] [address] Performing Lab: [facility]PITALRL TRN [facility]ENTERUSE[address] [address] [place] CBC MCHC [MASS/VOLUM E] BY AUTOMATED COUNT 32.7 g/dL 30.8 - 35.1 11/15 Specimen Type: BLOOD No comment entered. Ordering Provider: CHAVEZ MCKEON Report Released Date/Time: Nov 05, 2024 12:05 PM Reporting Lab: [facility]ITALRL TRN [facility]ENTERUSETS [address] [address] Performing Lab: [facility]ITALRL TRN [facility]ENTERUSETS [address] [address] [place] CBC PLATELETS [#/VOLUME] IN BLOOD BY AUTOMATED COUNT 283 10*3/u L 140 - 360 11/15 Specimen Type: BLOOD No comment entered. Ordering Provider: CHAVEZ MCKEON Report Released Date/Time: Nov 05, 2024 12:05 PM Reporting Lab: [facility]ITALRL TRN [facility]ENTERUSETS [address] [address] Performing Lab: [facility]OSPITALRST. VINCENT'[facility] CHILTONTRN [facility]ENTERUSETS [address] [address] [place] CBC ERYTHROCYTE DISTRIBUTIO N WIDTH [RATIO] BY AUTOMATED COUNT 12.4 12.0 - 16.0 11/15 Specimen Type: BLOOD No comment entered. Ordering Provider: CHAVEZ MCKEON Report Released Date/Time: Nov 05, 2024 12:05 PM Reporting Lab: [address] [address] Performing Lab: [address] [address] [place] CBC MCH [ENTITIC MASS] BY AUTOMATED COUNT 28.5 pg 26.2 - 32.6 11/15 Specimen Type: BLOOD No comment entered. Ordering Provider: CHAVEZ MCKEON Report Released Date/Time: Nov 05, 2024 12:05 PM Reporting Lab: [address] [address] Performing Lab: [address] [address] [place] BASIC METABOLIC PANEL (fasting) UREA NITROGEN [MASS/VOLUM E] IN SERUM OR PLASMA 17 mg/dL 7 - 25 11/15 Specimen Type: SERUM No comment entered. Ordering Provider: CHAVEZ MCKEON Report Released Date/Time: Nov 05, 2024 12:05 PM Reporting Lab: [address] [address] Performing Lab: [address] [address] [place] BASIC METABOLIC PANEL (fasting) GLUCOSE [MASS/VOLUM E] IN SERUM OR PLASMA 111 mg/dL 65 - 100 11/15 H Specimen Type: SERUM No comment entered. Ordering Provider: CHAVEZ MCKEON Report Released Date/Time: Nov 05, 2024 12:05 PM Reporting Lab: [address] [address] Performing Lab: [address] [address] [place] BASIC METABOLIC PANEL (fasting) SODIUM [MOLES/VOLU ME] IN SERUM OR PLASMA 139 mmol/L 135 - 145 11/15 Specimen Type: SERUM No comment entered. Ordering Provider: CHAVEZ MCKEON Report Released Date/Time: Nov 05, 2024 12:05 PM Reporting Lab: [facility] [address] [address] Performing Lab: [facility] [address] [address] [place] [facility] [place] BASIC METABOLIC PANEL (fasting) POTASSIUM [MOLES/VOLU ME] IN SERUM OR PLASMA 4.3 mmol/L 3.5 - 5.0 11/15 Specimen Type: SERUM No comment entered. Ordering Provider: CHAVEZ MCKEON Report Released Date/Time: Nov 05, 2024 12:05 PM Reporting Lab: [facility] [address] [address] Performing Lab: [facility] [address] [address] [place] BASIC METABOLIC PANEL (fasting) CHLORIDE [MOLES/VOLU ME] IN SERUM OR PLASMA 105 mmol/L 100 - 110 11/15 Specimen Type: SERUM No comment entered. Ordering Provider: CHAVEZ MCKEON Report Released Date/Time: Nov 05, 2024 12:05 PM Reporting Lab: [facility] [address] [address] Performing Lab: [facility] [address] [address] [place] [facility] [place] BASIC METABOLIC PANEL (fasting) CARBON DIOXIDE, TOTAL [MOLES/VOLU ME] IN SERUM OR PLASMA 27 meq/L 20 - 30 11/15 Specimen Type: SERUM No comment entered. Ordering Provider: CHAVEZ MCKEON Report Released Date/Time: Nov 05, 2024 12:05 PM Reporting Lab: [facility] [address] [address] Performing Lab: [facility] [address] [address] [place] BASIC METABOLIC PANEL (fasting) CREATININE [MASS/VOLUM E] IN SERUM OR PLASMA 1.42 mg/dL 0.50 - 1.40 11/15 H Specimen Type: SERUM No comment entered. Ordering Provider: CHAVEZ MCKEON Report Released Date/Time: Nov 05, 2024 12:05 PM Reporting Lab: [facility] [address] [facility] [address] Performing Lab: [address] [address] [facility] (fasting) GLOMERULAR FILTRATION RATE/1.73 SQ M.PREDICTED [VOLUME RATE/AREA] IN SERUM, PLASMA OR BLOOD BY CREATININE- BASED FORMULA (CKD-EPI 2020) 51 mL/min 60 11/15 L Specimen Type: SERUM No comment entered. Ordering Provider: CHAVEZ MCKEON Report Released Date/Time: Nov 05, 2024 12:05 PM Reporting Lab: [address] [address] Performing Lab: [address] [address] [facility] Vital Signs Combined list of inpatient and outpatient Vital Signs from Department of Defense and [employer] Affairs, ranging from 12 months to all on record, depending upon the facility. Vital Sign Value Date Comments Source SYSTOLIC BLOOD PRESSURE 123 03/15/2025 11:51:14 [facility] DIASTOLIC BLOOD PRESSURE 76 03/15/2025 11:51:14 [facility] PULSE OXIMETRY 95 03/15/2025 11:51:14 [facility] WEIGHT 200 03/15/2025 11:51:14 [facility] BMI 32 kg/m2 03/15/2025 11:51:14 [facility] PULSE 82 03/15/2025 11:51:14 [facility] SYSTOLIC BLOOD PRESSURE 109 11/05/2024 11:44:44 [facility] DIASTOLIC BLOOD PRESSURE 72 11/05/2024 11:44:44 [facility] PULSE OXIMETRY 97 11/05/2024 11:44:44 [place] WEIGHT 206 11/05/2024 11:44:44 [place] BMI 33 kg/m2 11/05/2024 11:44:44 [place] HEIGHT 66 11/05/2024 11:44:44 [place] TEMPERATURE 97.9 11/05/2024 11:44:44 [place] [place] PULSE 73 11/05/2024 11:44:44 [place] RESPIRATION 18 11/05/2024 11:44:44 [facility] SYSTOLIC BLOOD PRESSURE 117 07/29/2024 11:09:16 [place] DIASTOLIC BLOOD PRESSURE 77 07/29/2024 11:09:16 HERRICK PULSE OXIMETRY 97 07/29/2024 11:09:16 S CAITLIN WEIGHT 202 07/29/2024 11:09:16 CONNOR BARDALES BMI 32 kg/m2 07/29/2024 11:09:16 CONNOR BARDALES PULSE 71 07/29/2024 11:09:16 CONNOR BARDALES Encounters Combined list of: 1) [facility]ters [facility] facilities going backup to the last 18 months, not all [place] inpatient encounters are included; 2) Encounters from the Department of [facility] facilities going backup to 280 months. Location Location Details Encounter Type Encounter Number Reason For Visit Attending Provider ADM Date DC Date Status Disposition Source [place] [facility] [place] [facility] Outpatient Encounter [id number] 01[place]26 [place] [facility] [place] [place] [facility] [place] [facility] INFRARED THERAPY [id number] Diagnos is: ICD-10- CM M54.50 Low back pain, unspeci fied GAUNYA,CHR ISTOPHER M 01/26 [place] [facility] [place] [place] [facility] [place] [facility] QNHP OL DIG ASSMT&MGMT 5-10 [id number] Diagnos is: ICD-10- CM Z12.2 Encntr screen for maligna nt neoplas m of respira tory organs PUCHALSKI, EULA L 01/26 [place] [facility] [place] [facility] [place] [facility] Outpatient Encounter [id number] 02/02 [place] [facility] [facility] (631GE) NRPSYC TST EVAL PHYS/QHP 1ST [id number] Diagnos is: ICD-10- CM 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 YADIEL DAVID W 02/02 [facility] (631GE[facility] [place] [facility] [place] [facility] THERAPEUTI C EXERCISES [id number] Diagnos is: ICD-10- CM M54.59 Other low back pain MARIAH ROJAS RA 02/03 [place] [facility] [place] [place] [facility] [place] PSYTX W PT 60 MINUTES [id number] [id number] Diagnos is: ICD-10- CM F43.12 Post-tr aumatic stress disorde r, chronic ABRAN,T YLER 02/05 [place] [facility] MANUAL THERAPY 1/> REGIONS [id number] Diagnos is: ICD-10- CM M54.59 Other low back pain MARIAH ROJAS RA 02/05 [place] [facility] [place] [place] [facility] MANUAL THERAPY 1/> [place] [id number] Diagnos is: ICD-10- CM M54.59 Other low back pain MARIAH ROJAS RA 02/08 [place] [facility] [place] [facility] [place] [facility] [place] [facility] Outpatient Encounter [id number] 02/09 [facility] [place] [place] [facility]P EST MOD 30 MIN [id number] [id number] Diagnos is: ICD-10- CM 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, lumbar region LORRI MCKEON C 02/15 [place] [facility] [place] [place] [facility] Outpatient Encounter [id number] 02/15 [place] [facility] [place] [place] [facility] [place] HC PRO PHONE CALL 21-30 MIN [id number] [id number] 65 Diagnos is: ICD-10- CM F43.12 Post-tr aumatic stress disorde r, chronic BREWER,LER OY F 02/16 [facility] Out[facility] Encounter [id number] 02/17 [facility] [place] Encounter [id number] 02/17 [facility] [place] [facility] [place] PSYTX W PT 60 MINUTES [id number] [id number] 55 Diagnos is: ICD-10- CM F43.12 Post-tr aumatic stress disorde r, chronic ABRAN,Ana Lilia YLER 02/19 [facility] (631GE) GROUP PSYCHOTHER APY [id number] Diagnos is: ICD-10- CM F43.12 Post-tr aumatic stress disorde r, chronic JESSICADAWIT H 02/23 [facility] (631GE) [facility] (631GE) GROUP PSYCHOTHER APY [id number] [id number] 44 Diagnos is: ICD-10- CM 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 [facility] 03/02 [facility] [place] [place] [facility] [place] [place] [facility] Outpatient Encounter [id number] 03/03 [facility] INTRM OPH EXAM EST PATIENT [id number] Diagnos is: ICD-10- CM H25.813 Combine d forms of age-rel ated catarac t, bilmatias al NEAL ROSENTHAL H B 03/08 [facility] FIT SPECTACLES MULTIFOCAL [id number] [id number] Diagnos is: ICD-10- CM Z46.0 Encount er for fit/adj st of spectac les and contact lenses NEAL ROSENTHAL B 03/08 [place] [facility] [place] [facility] (631GE) GROUP PSYCHOTHER APY [id number] [id number] Diagnos is: ICD-10- CM 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 DAWIT LOPEZ H 03/09 [facility]631GE) [facility] RPR&REFITG SPECT XCP APHAKIA [id number] [id number] Diagnos is: ICD-10- CM Z46.0 Encount er for fit/adj st of spectac les and contact lenses Anna HYLTON 03/17 [facility] Outpatient Encounter [id number] 03/17 [facility] [place] [place] MANUAL THERAPY 1/> REGIONS [id number] Diagnos is: ICD-10- CM M54.59 Other low back pain MARIAH ROJAS RA 03/18 [place] [facility] [place] [place] [facility] PSYTX W PT 60 MINUTES [id number] [id number].[id number] Diagnos is: ICD-10- CM F43.12 Post-tr aumatic stress disorde r, chronic ABRAN,T YLER 03/19 [facility] OFFICE O/P EST LOW 20 MIN 32120-7.63 1BY. 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 DAWIT LOPEZ 03/23 [facility] (631GE[facility] [place] OFFICE O/P EST LOW 20 MIN [id number] [id number] 11 Diagnos is: ICD-10- CM F43.12 Post-tr aumatic stress disorde r, chronic BREWER,LER OY F 03/24 [place] [facility] [facility] Outpatient Encounter [id number] 03/29 [place] [facility] (631GE) GROUP PSYCHOTHER APY [id number] [id number] 31 Diagnos is: ICD-10- CM 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 DAWIT LOPEZ 03/30 [facility] (631GE) [place] [facility] [facility] Outpatient Encounter [id number] 04/04 [place] [facility] (631GE) Outpatient Encounter [id number] [id number] 04/06 [facility] (631GE) [facility] (631GE) PSYTX W PT 45 MINUTES [id number] [id number] 29 Diagnos is: ICD-10- CM 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 DAWIT LOPEZ 04/13 [facility] (631GE) [place] [facility] [place] [facility] Outpatient Encounter [id number] 04/16 [place] [facility] [facility]OP EST MAY X REQ PHY/QHP [id number] [id number] 31 Diagnos is: ICD-10- CM R21 Rash and other nonspec ific skin eruptio n CALVIN,ER IC K 04/16 [place] [facility] [place] Outpatient Encounter [id number] 04/16 [place] [facility] [place] [place] [facility] [place] OFFICE O/P EST LOW 20 MIN [id number] [id number] Diagnos is: ICD-10- CM L23.7 Allergi c contact dermati tis due to plants, except food LINDA,KE NDRA [place] [facility] [place] [facility] OFF/OP EST MAY X REQ PHY/QHP [id number] [id number] Diagnos is: ICD-10- CM Z71.1 Person w feared hlth complai nt in whom no diagnos is is made CAMPBELL HEWITT LIZANDRO Nolan 04/17 [place] [facility] [place] [place] [facility] (631GE) PSYTX W PT 30 MINUTES [id number] [id number] 05 Diagnos is: ICD-10- CM 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 HATGIS,CHR ISTINA 04/20 [facility] (631GE) [place] [facility] [place] [facility] Outpatient Encounter [id number] 04/21 [place] [facility] [place] [facility] PSYTX W PT 60 MINUTES [id number] 1BY.[id number] 24 Diagnos is: ICD-10- CM F43.12 Post-tr aumatic stress disorde r, chronic ABRAN,T YLER [place] [facility] [place] [place] [facility] Outpatient Encounter [id number] 04/23 [place] [facility] [place] [facility] [place] [facility] Outpatient Encounter [id number] 04/27 [place] [facility] (631GE) PSYTX W PT 30 MINUTES [id number] [id number] 60 Diagnos is: ICD-10- CM 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 DAWIT LOPEZ 04[facility]27 [facility] [place] OFF/OP EST MARCH X REQ PHY/QHP 54460-4.63 1BY.[id number] 56 Diagnos is: ICD-10- CM Z23 Encount er for immuniz atbradley OROURKEAlphonseMAXIMO ARTIS 05/05 [place] PSYTX W PT 60 MINUTES [id number] 1BY.[id number] 17 Diagnos is: ICD-10- CM F43.12 Post-tr aumatic stress disorde r, chronic ABRAN,T YLER 05/14 [place] [facility] Out[facility] [id number] 05/18 [facility] [place] Out[facility] Encounter [id number] 06/02 [facility] [place] HC PRO PHONE CALL 5-10 MIN [id number] [id number] Diagnos is: ICD-10- CM Z71.89 Other specifi ed aids counselor CHAD Loaiza 06/08 [facility] Out[facility] Encounter [id number] 06/15 [facility] [place] Out[facility] Encounter [id number] 06/18 [facility] [place] PSYTX W PT 60 MINUTES [id number] [id number] Diagnos is: ICD-10- CM F43.12 Post-tr aumatic stress disorde r, chronic ABRAN,T YLER 06/18 [facility] Outpatient Encounter [id number] 06/24 [facility] Outpatient Encounter [id number] [facility] Encounter [id number] 07/12 [facility] [place] Encounter [id number] 07/13 [facility] [place] Out[facility] Encounter [id number] 07/15 [facility] [place] Out[facility] Encounter [id number] [id number] 07/15 [facility] Out[facility] Encounter [id number]/20 [facility] [place] Outpatient Encounter [id number] 07/22 [facility] [place] [place] [facility] PSYTX W PT 60 MINUTES [id number] [id number] Diagnos is: ICD-10- CM F43.12 Post-tr aumatic stress disorde r, chronic ABRAN,Ana Lilia YLER 07/22 [facility] ASHIA KIM OFFICE O/P EST MOD 30 MIN [id number] [id number] 07 Diagnos is: ICD-10- CM J43.1 Panlobu lar emphyse LORRI Figueroa 07/29 [facility] ASHIA [facility] CASE MANAGEMENT [id number] [id number] Diagnos is: ICD-10- CM F43.12 Post-tr aumatic stress disorde r, chronic FRANCO,W CARLOS A 08/06 [facility] [place] [facility] Outpatient Encounter [id number] 08/16 [place] [facility] [place] [place] [facility] [place] PSYTX W PT 60 MINUTES [id number] [id number] 69 Diagnos is: ICD-10- CM F43.12 Post-tr aumatic stress disorde r, chronic ABRAN,T YLER 08/19 [facility]P EST LOW 20 MIN [id number] [id number].[id number] 77 Diagnos is: ICD-10- CM L60.0 Ingrowi ng GRETEL Thomas ES F 08/20 [facility] SPECIAL SUPPLIES PHYS/QHP [id number] [id number] Diagnos is: ICD-10- CM G47.33 Obstruc tive sleep apnea (adult) (pediat roni) KARTHIKEYANMANSOOR E P 09/01 [place] [facility] [place] [place] [facility] [place] OFFICE O/P EST LOW 20 MIN [id number] [id number] 51 Diagnos is: ICD-10- CM F43.12 Post-tr aumatic stress disorde r, chronic BREWER,LER OY F 09/14 [place] [facility] [place] [place] [facility] Outpatient Encounter [id number] 09/21 [place] [facility] [place] [place] [facility] [place] OFF/OP EST MARCH X REQ PHY/QHP [id number] 1BY.[id number] 07 Diagnos is: ICD-10- CM Z23 Encount er for immuniz ation MAXIMO RODRIGUEZ YS 09/22 [facility] [place] [place] [facility] IMMUNIZATI ON ADMIN [id number] [id number] LORRI MCKEON C 09/22 [place] [facility] [place] [place] [facility] [place] PSYTX W PT 60 MINUTES [id number] [id number] Diagnos is: ICD-10- CM F43.12 Post-tr aumatic stress disorde r, chronic ABRAN,T YLER 09/23 [place] [facility] Out[facility] Encounter [id number] 09/27 [facility] [place] En[facility] [id number]/07 [facility] [place] Encounter [id number] 10/11 [facility] [place] Out[facility] Encounter [id number] [id number] 10/11 [facility] [place] Out[facility] Encounter [id number] [id number] MAXIMO RODRIGUEZ 10/13 [facility] [place] [place] [facility] [place] PSYTX W PT 60 MINUTES [id number] [id number] Diagnos is: ICD-10- CM F43.12 Post-tr aumatic stress disorde r, chronic ABRAN,T YLER 10/26 [place] [facility] [place] Outpatient Encounter [id number] 1. DORITA VIERA 10/28 [facility] [place] [place] [facility] [place] OFFICE O/P EST MOD 30 MIN [id number] 1BY.[id number] Diagnos is: ICD-10- CM G47.33 Obstruc tive sleep apnea (adult) (pediat roni) LORRI MCKEON C 11/05 [place] [facility] [place] [facility] ADMN SARSCOV2 VACC 1 DOSE [id number] 1. LORRI MCKEON C 11/05 [facility] [place] [facility] UN[facility] SPEC DERM SVC/PX 98238-6.63 1BY.[id number] 94 Diagnos is: ICD-10- CM Z13.89 Encount er for screeni ng for other disorde r Henrry JAMES 11/11 [place] [facility] [place] [facility] Outpatient Encounter [id number] 11/15 [place] [facility] [place] [place] [facility] OFFICE O/P EST LOW 20 MIN 30216-0.60 8. Diagnos is: ICD-10- CM L82.1 Other seborrh eic keratos is NGOC VARELA PH J 11/15 [facility] [place] [place] [facility] Outpatient Encounter [id number] 11/15 [place] [facility] [place] [facility] [place] [facility] Outpatient Encounter [id number] 11/16 [place] [facility] [place] [facility] [place] [facility] Outpatient Encounter [id number] DORITA VIERA 11/16 [place] [facility] [place] [facility] CASE MANAGEMENT [id number] [id number].[id number] Diagnos is: ICD-10- CM F43.12 Post-tr aumatic stress disorde r, chronic FRANCO,W CARLOS A 11/18 [place] [facility] [place] [facility] Outpatient Encounter [id number] 11/29 [place] [facility] [place] [place] [facility] [place] [facility] Outpatient Encounter [id number] 1.11/30 [facility] [place] [place] [facility] [place] PSYTX W PT 60 MINUTES [id number] [id number] 07 Diagnos is: ICD-10- CM F43.12 Post-tr aumatic stress disorde r, chronic ABRAN,T YLER 12/02 [place] SYNCH AUDIO-VIDE O EST MOD 30 [id number] 1BY. 92 Diagnos is: ICD-10- CM R73.03 Prediab etes LINDALORRI NDRA C 12/02 [place] [facility] [place] Outpatient Encounter [id number] 1.12/06 [facility] [place] [place] [facility] [place] [facility] Outpatient Encounter [id number]/06 [place] [facility] [place] [place] [facility] [place] COMPRE OPH EXAM EST PT 1/> [id number] [id number] Diagnos is: ICD-10- CM H25.813 Combine d forms of age-rel ated catarac t, bilater al MESSI SUE 12/15 [facility] [place] [place] [facility] [place] FIT SPECTACLES MULTIFOCAL [id number] [id number] Diagnos is: ICD-10- CM Z46.0 Encount er for fit/adj st of spectac les and contact lenses MESSI SUE 12/16 [place] [facility] [place] [place] [facility] [place] OFFICE O/P EST LOW 20 MIN [id number] [id number] Diagnos is: ICD-10- CM L60.0 Ingrowi ng nail ROSS,CHARL ES F 12/24 [place] PSYTX W PT 60 MINUTES 76425-4.63 1BY.[id number] 56 Diagnos is: ICD-10- CM F43.12 Post-tr aumatic stress disorde r, chronic ABRAN,T YLER 01/04 [place] OFFICE O/P EST LOW 20 MIN [id number] 1BY.[id number] 86 Diagnos is: ICD-10- CM 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 OLVIN BREWER OY F 01/11 [place] [facility] Outpatient Encounter [id number] MAXIMO RODRIGUEZ YS 01/18 [place] [facility] [place] [place] [facility] [place] [facility] Outpatient Encounter [id number] [id number] 01/27 [place] [facility] [place] [facility] [place] [facility] Outpatient Encounter [id number] MAXIMO RODRIGUEZ YS 02/03 [facility] [place] [place] [facility] [place] OFFICE O/P EST SF 10 MIN [id number] 1BY.[id number] 33 Diagnos is: ICD-10- CM F43.12 Post-tr aumatic stress disorde r, chronic OLVIN BREWER OY F 02/09 [place] PSYTX W PT 60 MINUTES [id number] 1BY.[id number] 80 Diagnos is: ICD-10- CM F43.12 Post-tr aumatic stress disorde r, chronic ABRAN,T YLER 02/15 [place] [facility] [place] NQHP OL DIG ASSMT&MGMT 5-10 [id number] [id number] Diagnos is: ICD-10- CM Z12.2 Encntr screen for maligna nt neoplas m of respira tory organs DAWIT JULIEN 03/03 [facility] [place] [place] [place] [facility] [place] OFFICE O/P EST MOD 30 MIN 80007-5.63 [id number].[id number] 90 Diagnos is: ICD-10- CM R73.03 Prediab antonioVu Corcoran 03/15 [facility] [place] [facility] En[facility] [id number] 03/17 [facility]counter [id number] 03/17 [facility] Out[facility] Encounter [id number] ABDULAZIZ MOELLER 03/17 [facility] Out[facility] Encounter [id number] ZULEMA KEEN 03/21 [facility] Out[facility] Encounter [id number] 03/21 [facility] PSYTX W PT 60 MINUTES [id number] Diagnos is: ICD-10- CM F43.12 Post-tr aumatic stress disorde r, chronic ABRAN,T YLER 03/24 [facility] Out[facility] Encounter [id number] 03/25 [facility]counter [id number] 03/25 [facility] Out[facility] Encounter [id number] DORITA VIERA 03/25 [facility] Out[facility] Encounter [id number] 04/06 [facility] Encounter [id number] 04/12 [facility] LD OFFICE O/P EST LOW 20 MIN [id number] Diagnos is: ICD-10- CM L60.0 Ingrowi GRETEL Olivas ES F 04/22 [facility] Outpatient Encounter [id number] MAXIMO RODRIGUEZ 05/03 [facility] Encounter [id number] ABDULAZIZ MOELLER 05/03 [facility] LD OFFICE O/P EST LOW 20 MIN [id number] Diagnos is: ICD-10- CM F43.12 Post-tr aumatic stress disorde r, chronic OLVIN BREWER OY F 05/03 [place] [facility] Out[facility] Encounter [id number] 05/03 [facility] Out[facility]counter [id number] DORITA VIERA 05/03 [facility] Out[facility]counter [id number] 05/04 [facility]counter [id number] 05/05 [facility] Out[facility]counter [id number] 05/10 [facility] Out[facility]counter [id number] 05/11 [facility]counter [id number] 05/13 [facility]counter [id number] 05/16 [facility] Out[facility]counter [id number] DORITA VIERA 05/17 [facility] Encounter [id number] KENNY HERNANDEZ 05/23 [facility] SPECIAL SUPPLIES PHYS/QHP [id number] Diagnos is: ICD-10- CM G47.33 Obstruc tive sleep apnea (adult) (pediat roni) MANSOOR FAIRCHILD 06/08 [facility] Out[facility] Encounter [id number] 06/08 [facility]counter [id number] 06/09 [facility]counter [id number] 06/09 [facility] Out[facility]counter [id number] 06/09 [facility] LD PSYTX W PT 60 MINUTES [id number] Diagnos is: ICD-10- CM F43.12 Post-tr aumatic stress disorde r, chronic ABRAN,T YLER 06/16 [facility] [facility] [facility] Outpatient Encounter [id number] 07/12 [facility] Outpatient Encounter [id number] 07/12 [facility] [place] [facility] Outpatient Encounter [id number] 07/12 [facility] [place] [facility] [place] [facility] Outpatient Encounter [id number] Vu [place] 07/13 [facility] [place] [place] [facility] Social History Combined list of available smoking, tobacco, and other social history from Department of Defense and Veterans Affairs facilities. 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 NO 02/10/2019 [facility] History of tobacco use QUIT TOBACCO USE 1-7 YEARS AGO 03/05/2018 [facility] History of tobacco use QUIT TOBACCO USE IN PAST YEAR 10/07/2017 [facility] History of tobacco use QUIT TOBACCO USE IN PAST YEAR 03/27/2017 cigars [facility] History of tobacco use CURRENT SMOKER 12/04/2016 [facility] History of tobacco use V1-PT NOT INTERESTED IN QUIT TOBACCO USE 03/19/2016 [facility] History of tobacco use CURRENT SMOKER 02/07/2016 States he smokes cigars every couple of days [facility] History of tobacco use CURRENT SMOKER 12/06/2014 [facility] History of tobacco use V1-PT READY TO QUIT TOBACCO USE 10/29/2013 [facility] History of tobacco use QUIT TOBACCO USE IN PAST YEAR 05/20/2013 [facility] History of tobacco use V1-PT DECLINES TOBACCO CESSATION MEDS 11/12/2012 [facility] History of tobacco use CURRENT SMOKER 08/12/2012 4-5cigars/d [facility] History of tobacco use V1-PT DECLINES TOBACCO CESSATION MEDS 05/26/2012 [facility] History of tobacco use CURRENT SMOKER 08/05/2011 Pt. smikes 1 cigar a day! [facility] History of tobacco use V1-PT READY TO QUIT TOBACCO USE 09/27/2010 [facility] History of tobacco use QUIT TOBACCO USE IN PAST YEAR 04/03/2010 [facility] Plan of Care List of future care activities from Department of Veterans Affairs facilities. Additional future care activities may be listed in the Assessment and Plan section. Date/Time Care Activity Care Activity Detail Facili ty 07/20/2025 AMBULATORY - MEDICINE AMBULATORY - [facility]IC[facility]
--- NOTE | 2025-07-20 11:35 | A.OFFVIS_ITS ---
Intake Visit Reasons: 1y/PVR Intake Note: Patient is Present for Follow Up Urology Medication: Finasteride Blood Thinners: None PVR: 32mls Heavy Threader Required: No Accompanied by: Spouse Allergies No Known Allergies (No Known Allergies*) Allergy (Verified 07/20/25 11:35) HPI Comments Details: Ravi is a very pleasant male. He is a patient of Dr. Hogan. He is seen for the following urologic conditions. - lower urinary tract symptoms Twelve month follow-up Underwent GreenLight laser 18 months ago UA clear PVR 30 cc Off medications Does have some leakage Recommend pelvic floor exercises. Printed information provided. PSA - 07/17 1.0 Nocturia reduced from 3-4 times a night to once or twice Very happy with effective stream Prazosin also used to control PTSD Accompanied by Lower Urinary Tract Symptoms:? Current visit is for?further symptom evaluation of, lower urinary tract symptoms, mixed obstructive and irritative symptoms.? Current treatment includes?medication, finasteride, alpha hayley prazosin 5mg.? Prostate Symptom Score?Moderate (9-19), Bother 3.? Symptoms include?incomplete emptying, weak stream, nocturia (>2), and are progressing.? Prior Prostate Score?unknown.? Cystoscopy 04/14 trilobar hypertrophy - 01/17 GreenLight laser prostatectomy [facility] Medical History GERD (gastroesophageal reflux disease) PTSD (post-traumatic stress disorder) Anxiety Depression Sleep apnea Elevated cholesterol Idiopathic progressive neuropathy Hypothyroidism Lower back pain Restless legs syndrome Prediabetes Benign prostatic hyperplasia with lower urinary tract symptoms Nocturia Surgical History History of esophagogastroduodenoscopy (EGD) H/O colonoscopy Social History Patient Tobacco Use Status: Former Tobacco user Review of Systems Const Denies chills and Denies fever(s) Card Reports no additional complaints and Denies syncope Resp Denies cough GI Denies abdominal pain and Denies heartburn Reports as per HPI and Denies change in libido Neuro Denies syncope Psych Denies change in libido Endo Denies change in libido Physical Exam Const General: cooperative, healthy appearing, comfortable and no acute distress Orientation/consciousness: patient oriented x3 HEENT Face and sinus: Yes normal facial exam Mouth: moist mucous membranes Neck Neck: Yes normal visual inspection, Yes full ROM and Yes trachea midline Chest Chest palpation & inspection: normal inspection of the chest Resp Effort & Inspection: normal respiratory effort, able to speak in complete sentences and no respiratory distress GI Inspection: Yes normal to inspection Back/Spine/Pelvis Cervical Spine: normal cervical lordosis Thoracic/Lumbar Spine: thoracic and lumbar spine normal to inspection Skin General skin exam: no rashes or lesions noted Neuro General: patient oriented x3, gait normal, tone normal and moves all extremities Extrem General: Yes normal to inspection and Yes capillary refill normal Office Procedures Post Void Residual Post Residual Void Post Void Residual (PVR): 32 [id number] Void Residual by ultrasound Results AMB Urinalysis, Automated UA Leukoctes 0 Mona/uL Last Edit by DEQUAN Meyers on 07/20/25 11:48 UA Nitrite Negative Last Edit by DEQUAN Meyers on 07/20/25 11:48 UA Urobilinogen 0.2 mg/dL Last Edit by DEQUAN Meyers on 07/20/25 11:4 8 UA Protein 0 mg/dL Last Edit by DEQUAN Meyers on 07/20/25 11:48 UA pH 6.0 Last Edit by DEQUAN Meyers on 07/20/25 11:48 UA Blood 0 Harshad/uL Last Edit by DEQUAN Meyers on 07/20/25 11:48 UA Specific [place] 1.010 Last Edit by DEQUAN Meyers on 07/20/25 11: 48 UA Ketone Negative Last Edit by DEQUAN Meyers on 07/20/25 11:48 UA Bilirubin 0 mg/dL Last Edit by DEQUAN Meyers on 07/20/25 11:48 UA Glucose 0 mg/dL Last Edit by DEQUAN Meyers on 07/20/25 11:48 Results Reviewed Results Reviewed: Laboratory Last Values Urine pH (Auto) 6.0 07/20/25 11:47 Specific [place] (Auto) 1.010 07/20/25 11:47 Urine Protein (Auto) 0 mg/dL 07/20/25 11:47 Glucose (UA)(Auto) 0 mg/dL 07/20/25 11:47 Urine Ketones (Auto) Negative 07/20/25 11:47 Urine Blood (Auto) 0 Harshad/uL 07/20/25 11:47 Urine Nitrite (Auto) Negative 07/20/25 11:47 Urine Bilirubin (Auto) 0 mg/dL 07/20/25 11:47 Urine Urobilinogen (Auto) 0.2 mg/dL 07/20/25 11:47 Leukocyte Esterase (Auto) 0 Mona/uL 07/20/25 11:47 Assessment & Plan Assessment & Plan (1) Benign prostatic hyperplasia with lower urinary tract symptoms: Comment: 6 month follow-up PVR Code(s): N40.1 - Benign prostatic hyperplasia with lower urinary tract symptoms Category: Medical Plan Twelve month follow-up office PSA Orders: Orders AMB Post Void Residual by ultrasound Today R35.1 - Nocturia Prostate Specific Antigen 12 Months N40.1 - Benign prostatic hyperplasia with lower urinary tract symptoms AMB Urinalysis Automated Today Z13.9 - Encounter for screening, unspecified Patient Instructions: This note is constructed using voice recognition software. While every effort has been made to ensure accuracy bakery demonstrator errors may have been included. Imaging studies, laboratory and physical exam results were discussed and reviewed in detail. No major barriers to patient understanding were identified. An opportunity to ask questions regarding the treatment plan was provided. All questions were answered. The patient expressed understanding and agreement with the above treatment plan. The patient is aware they should contact our office by phone for worsening of their current condition or the appearance of new urologic symptoms. Compliance is encouraged with any medications and followup testing that is ordered. It is a privilege to participate in the urologic care of your patient. If you have any questions or concerns regarding treatment for the above conditions, or other urologic issues, please do not hesitate to contact me. The office telephone contact is [phone]. Sincerely, Dr Colt Camarillo MD, [facility] - Urology Compassionate Specialist Care for the Genitourinary System Coding Level of Care Code Est Pt Level 3 (60921) Diagnoses Benign prostatic hyperplasia with lower urinary tract symptoms N40.1 CPT Codes Post Residual Void - PVR CPT Code: 63344-Xohv Void Residual by ultrasound ([id number])
== END 2025-07-20 12:17 | disposition home or self-care (01) ==
LOC: HO.HUSH 11:29
PROVIDERS: PCP Family Medicine; Visit Provider Urology
DX: Z13.9 Encounter for screening, unspecified (principal); N40.1 Benign prostatic hyperplasia with lower urinary tract symptoms
CPT/HCPCS: 99213

== ENCOUNTER → 2025-07-20 11:28 | Outpatient (BNVA) | payer OTHER, SELFPAY | PROVIDERS: PCP Family Medicine; Visit Provider Urology | DX: N40.1 Benign prostatic hyperplasia with lower urinary tract symptoms (principal); N13.8 Other obstructive and reflux uropathy; R35.1 Nocturia; Z13.9 Encounter for screening, unspecified | CPT/HCPCS: 51798; 81003; 99212 ==